=== PATIENT | male | born 1930 | race Caucasian/White ===

== ENCOUNTER 2016-05-27 09:55 | Inpatient (IN) | payer OTHER ==
[~2016-05-27] VITALS: Ht 167.6 cm; Wt 84.3 kg
[~2016-05-27 09:55] MED LIST: ALBU1AER9 INH; AMLO2.5T PO; ASPI81TA28 PO; ATOR-22 PO; ATRINS NEB; BENZ100C7 PO; FERR325T51 PO; FLM4 PO; IPRASOL4 INH; LEVA1.255 INH; LEVO125T4 PO; LPR25 PO; OMEG10007 PO; OMEP20CA9 PO; PSYL55.43 PO; SENN-61 PO; SYMIN160 INH; UMEC1INH PO; WARF5TAB7 PO; XLTOPS OPB
[2016-05-27] MEDS ORDERED: FAMOTIDINE 20MG/102 ML D5W IV STA (10:40)
[2016-05-27 10:53] LABS: BASO % 0.1 %; BASO ABS # 0.01 K/uL (0-0.2); COMPLETE YES; EOS % 0.8 %; LYMPH % 7.6 %; LYMPH ABS # 0.84 K/uL (1.2-3.4); MEAN CELL VOLUME 88.2 fL (80-100); MEAN PLATELET VOLUME 9.7 fL (7.4-10.4); MONO % 8.8 %; NEUT % 81.7 %; PLATELET COUNT 170 K/uL (130-400); RED BLOOD COUNT 4.76 M/uL (4.7-6.1); WHITE BLOOD COUNT 11.12 K/uL (4.8-10.8)
[2016-05-27] MEDS ORDERED: AMOX875T PO (10:54)
[2016-05-27] MEDS ORDERED: PSYL48.59 PO (10:54)
[2016-05-27] MEDS ORDERED: FERR1TAB13 PO (10:54)
[2016-05-27] MEDS ORDERED: ALBU18002 NAE (10:54)
[2016-05-27 10:59] LABS: BUN/CREATININE RATIO 13.7 (10-20); CALCIUM 8.9 mg/dl (8.5-10.1); CREATININE 1.4 mg/dl (0.60-1.40); POTASSIUM 4.4 mmol/L (3.5-5.1)
--- NOTE | 2016-05-27 11:00 | DIAGNOSTIC IMAGING REPORT ---
CHEST ONE VIEW PORTABLE CLINICAL HISTORY: Atypical chest pain COMPARISON STUDY: 02/03/2016 FINDINGS: There are postsurgical changes of a midline sternotomy. There is stable left basilar atelectasis/scarring. There is no failure. There is no acute parenchymal consolidation. No pleural effusions are visualized.[ IMPRESSION: No active disease in the chest. Electronically signed by: Catarino Garcia M.D. 05/27/2016 10:59 AM Dictated Date/Time: 05/27/2016 10:58 AM
[2016-05-27 11:03] LABS: INR 2.1 (0.9-1.1); PARTIAL THROMBOPLASTIN RATIO 1.4; PROTHROMBIN TIME (PATIENT) 23.3 SECONDS (9.0-12.0)
[2016-05-27] MEDS ORDERED: ASPIRIN 324 MG CHEW PO STA (11:12)
--- NOTE | 2016-05-27 11:14 | EMERGENCY ROOM VISIT NOTE ---
History Report prepared by Philip: Manolo Day Under the Supervision of: Dr. Raz Delaney M.D. First contact with patient: 10:32 Chief Complaint: SHORTNESS OF BREATH Stated Complaint: CAN'T BREATHE, CHEST PAIN DX: COPD Nursing Triage Summary: Pt reports difficulty breathing and chest pain that started yesterday. Pain is non radiating. Pt reports finished course of prednisone and still taking Augmentin "for my lungs." Hx of COPD. History of Present Illness The patient is a 86 year old male who presents to the Emergency Room with complaints of intermittent, resolved mid-chest pain starting last night. He describes it to be a burning pain which was similar to acid reflux. The pain occurred once last night and once this morning. The pain lasted all of last night. He denies any symptom relief with TUMS. It resolved after a few minutes this morning. He currently denies any pain. He also complains of persistent shortness of breath. He denies diaphoresis, nausea, vomiting, or any other complaints. He has a history of valve replacement and A Fib. He denies any recent stress tests. he is on Coumadin. Source of History: patient Onset: last night Position: chest (mid) Quality: burning Timing: intermittent, resolved Modifying Factors (Relieving): other (TUMS without relief) Associated Symptoms: + SOB, No diaphoresis, No nausea, No vomiting Review of Systems See HPI for pertinent positives & negatives. A total of 10 systems reviewed and were otherwise negative. Past Medical & Surgical Medical Problems: (1) Asthma (2) Cerebrovascular disease (3) Chest pain (4) CKD (chronic kidney disease) stage 3, GFR 30-59 ml/min (5) COPD (chronic obstructive pulmonary disease) (6) Dyslipidemia (7) GERD (gastroesophageal reflux disease) (8) History of tobacco use (9) HTN (hypertension) (10) Hyponatremia (11) Hypothyroid (12) Paroxysmal a-fib (13) Sensorineural hearing loss (14) TIA (transient ischemic attack) Surgical Problems: (1) H/O exploratory laparotomy (2) Heart valve replaced (3) History of CEA (carotid endarterectomy) Family History Cancer Diabetes mellitus Heart disease Hypertension Lung disease Stroke Social History Smoking Status: Former Smoker Alcohol Use: occasionally Marital Status: single Housing Status: lives with family Occupation Status: unemployed Current/Historical Medications Scheduled Amlodipine (Norvasc), 0.5 TAB PO DAILY Amoxicillin & Pot Clavulanate (Augmentin 875-125 mg), 1 TAB PO UD Aspirin (Aspirin Ec), 81 MG PO DAILY Atorvastatin (Lipitor), 1 TAB PO DAILY Budesonide/Formoterol Fumarate (Symbicort 160/4.5 Inhaler ), 2 PUFFS INH BID Ferrous Sulfate (Kp Ferrous Sulfate), 1 TAB PO DAILY Fish Oil ([place]-3), 1,000 MG PO DAILY Latanoprost (Latanoprost), 1 DROP OPB HS Levothyroxine Sodium (Levothyroxine Sodium), 125 MCG PO DAILY Metoprolol Tartrate (Lopressor), 12.5 MG PO BID Omeprazole (Prilosec), 20 MG PO DAILY Tamsulosin HCl (Tamsulosin HCl), 0.4 MG PO DAILY Umeclidinium [place] (Incruse Ellipta), 1 PUFF PO DAILY Warfarin Sod (Coumadin), 1 TAB PO UD Warfarin Sodium (Coumadin), 1 TAB PO UD Scheduled PRN Albuterol Sulfate (Proair Respiclick), 2 SPRAYS LISSY Q4 PRN for SOB/Wheezing Benzonatate (Benzonatate), 100 MG PO TID PRN for Cough Levalbuterol Hcl (Levalbuterol), 1 DOSE INH Q2H PRN for SOB/Wheezing Psyllium (Metamucil), 1 DOSE PO DAILY PRN for Constipation Allergies Coded Allergies: Shellfish (Verified Allergy, Severe, ANAPHYLAXIS, 05/27/16) Lisinopril (Unverified Allergy, Unknown, DROPS BLOOD PRESSURE TO LOW, , 01/31) PT FAMILY WOULD LIKE LISINOPRIL ADDED INTO ALLERGY TO AVOID REACTION Shrimp (Unverified Allergy, Unknown, ANAPHYLAXIS, 05/27/16) Physical Exam Vital Signs Date Time Temp Pulse Resp B/P Pulse Ox O2 Delivery O2 Flow Rate FiO2 05/27/16 12:04 Room Air 05/27/16 11:32 78 05/27/16 10:54 88 18 109/58 97 Nasal Cannula 2.0 05/27/16 10:37 96 Nasal Cannula 2.0 05/27/16 10:23 92 Room Air 05/27/16 10:05 37.1 96 22 100/44 95 Room Air 05/27/16 10:05 95 Room Air Physical Exam CONSTITUTIONAL: No acute distress HEENT: No icterus, moist mucous membranes NECK: No meningismus, trachea is midline. CARDIOVASCULAR: Regular rate, normal perfusion RESPIRATORY: Unlabored breathing. Clear to auscultation. GASTROINTESTINAL: Non-tender GENITOURINARY: No flank tenderness MUSCULOSKELETAL: Full range of motion NEUROLOGIC: No acute gross focal deficits. PSYCHIATRIC: Normal affect SKIN: Normal for ethnicity. Medical Decision & Procedures ER Provider Diagnostic Interpretation: X-ray results as stated below per interpretation by me and the radiologist. CHEST ONE VIEW PORTABLE CLINICAL HISTORY: Atypical chest pain COMPARISON STUDY: 02/03/2016 FINDINGS: There are postsurgical changes of a midline sternotomy. There is stable left basilar atelectasis/scarring. There is no failure. There is no acute parenchymal consolidation. No pleural effusions are visualized.[ IMPRESSION: No active disease in the chest. Electronically signed by: Catarino Garcia M.D. 05/27/2016 10:59 AM Dictated Date/Time: 05/27/2016 10:58 AM Laboratory Results 05/27/16 10:35 Red Blood Count 4.76, Mean Corpuscular Volume 88.2, Mean Corpuscular Hemoglobin 30.0, Mean Corpuscular Hemoglobin Concent 34.0, Mean Platelet Volume 9.7, Neutrophils (%) (Auto) 81.7, Lymphocytes (%) (Auto) 7.6, Monocytes (%) (Auto) 8.8, Eosinophils (%) (Auto) 0.8, Basophils (%) (Auto) 0.1, Neutrophils # (Auto) 9.09, Lymphocytes # (Auto) 0.84, Monocytes # (Auto) 0.98, Eosinophils # (Auto) 0.09, Basophils # (Auto) 0.01 05/27/16 10:35 Test 05/27/16 10:35 White Blood Count 11.12 K/uL (4.8-10.8) Red Blood Count 4.76 M/uL (4.7-6.1) Hemoglobin 14.3 g/dL (14.0-18.0) Hematocrit 42.0 % (42-52) Mean Corpuscular Volume 88.2 fL (80-100) Mean Corpuscular Hemoglobin 30.0 pg (25-34) Mean Corpuscular Hemoglobin Concent 34.0 g/dl (32-36) Platelet Count 170 K/uL (130-400) Mean Platelet Volume 9.7 fL (7.4-10.4) Neutrophils (%) (Auto) 81.7 % Lymphocytes (%) (Auto) 7.6 % Monocytes (%) (Auto) 8.8 % Eosinophils (%) (Auto) 0.8 % Basophils (%) (Auto) 0.1 % Neutrophils # (Auto) 9.09 K/uL (1.4-6.5) Lymphocytes # (Auto) 0.84 K/uL (1.2-3.4) Monocytes # (Auto) 0.98 K/uL (0.11-0.59) Eosinophils # (Auto) 0.09 K/uL (0-0.5) Basophils # (Auto) 0.01 K/uL (0-0.2) RDW Standard Deviation 44.5 fL (36.4-46.3) RDW Coefficient of Variation 13.7 % (11.5-14.5) Immature Granulocyte % (Auto) 1.0 % Immature Granulocyte # (Auto) 0.11 K/uL (0.00-0.02) Prothrombin Time 23.3 SECONDS (9.0-12.0) Prothromb Time International Ratio 2.1 (0.9-1.1) Activated Partial Thromboplast Time 35.9 SECONDS (21.0-31.0) Partial Thromboplastin Ratio 1.4 Anion Gap 9.0 mmol/L (3-11) Est Creatinine Clear Calc Drug Dose 40.5 ml/min Estimated GFR () 53.1 Estimated GFR (Non- 45.8 BUN/Creatinine Ratio 13.7 (10-20) Calcium Level 8.9 mg/dl (8.5-10.1) Labs reviewed by ED physician. Medications Administered Medications (Trade) Dose Ordered Sig/Leopoldo Route Start Time Stop Time Status Last Admin Dose Admin Famotidine (Pepcid 20mg/100 ml) 20 mg ONE STAT IV 05/27/16 10:40 05/27/16 10:42 DC 05/27/16 10:54 20 MG Aspirin (Aspirin Chew) 324 mg NOW STAT PO 05/27/16 11:12 05/27/16 11:14 DC 05/27/16 11:28 324 MG ECG Indication: chest pain Rate (beats per minute): 90 Rhythm: sinus rhythm Findings: no acute ischemic change, no ectopy, other (Prominent T waves anterolateral leads) ED Course 1032: Past medical records reviewed. The patient was evaluated in room B10. A complete history and physical examination was performed. 1040: Famotidine 20 mg IV 1112: Aspirin 324 mg PO, Heparin Sodium/Dextrose 1 ea N/A 1127: I discussed the patient's case with ZAN Boyd with [facility]. Upon reexamination the patient is resting comfortably. I discussed results and treatment plan with the patient. She verbalizes agreement and understanding. The patient will be evaluated for further management. 1157: I discussed the patient's case with Dr. Wood, web development intern with [facility]. Medical Decision Differential diagnosis includes but is not limited to heart disease and GERD. 86-year-old presented to the emergency room for evaluation of chest pain greater than 12 hours in duration which began last night before bed. He has no chest pain on my examination at this time. Troponin noted to be elevated. Aspirin ordered. Cardiology consulted. He remained hemodynamically stable throughout ED course. Consults Time Called: 1124 Consulting Physician: ZAN Boyd with [facility] Returned Call: [phone] I discussed the patient's case with ZAN Boyd with [facility]. Additional Consults: Time Called: 1130 Consulted Physician: Dr. Wood, web development intern with [facility] Returned Call: [phone] Additional Comments: I discussed the patient's case with Dr. Wood, web development intern with [facility]. Impression Primary Impression: Precordial chest pain Additional Impression: Elevated troponin Scribe Attestation The scribe's documentation has been prepared under my direction and personally reviewed by me in its entirety. I confirm that the note above accurately reflects all work, treatment, procedures, and medical decision making performed by me. Departure Information Dispostion Being Evaluated By Hospitalist Referrals No Doctor, Assigned (PCP) Patient Instructions My [facility] Problem Qualifiers
[2016-05-27 12:04] VITALS: Ht 167.6 cm; Wt 84.3 kg
[2016-05-27] MEDS ORDERED: ACETAMINOPHEN 325 MG TAB PO PRN (12:15)
[2016-05-27] MEDS ORDERED: ONDANSETRON INJ 2 MG/ML 2 ML VIAL IV PRN (12:15)
[2016-05-27] MEDS ORDERED: NITROGLYCERIN 0.4 MG SL PER TAB CHARGE SL PRN (12:15)
[2016-05-27] MEDS ORDERED: WARF5TAB90 PO (12:27)
[2016-05-27] MEDS ORDERED: CMD/25 PO (12:27)
[2016-05-27] MEDS ORDERED: LEVALBUTEROL 1.25MG/0.5ML NEB INH PRN (12:30)
[2016-05-27 13:29] LABS: THYROID STIMULATING HORMONE 1.48 uIu/ml (0.300-4.500)
--- NOTE | 2016-05-27 13:45 | History and Physical ---
History & Physical Date & Time of Service: May 27, 2016 at 12:41 Chief Complaint: Can't Breathe, Chest Pain Dx: Copd Primary Care Physician: Taj Rios M.D. History of Present Illness Source: patient, family (son with whom he lives) 86 yoM with h/p PAF on anticoagulation, COPD with recent flare 2/2 sinusitis, GERD and s/p bioprosthetic valve replacement in 2013 presents to the ER with new onset chest pain. The pain began yesterday after a lunch of lasagna, and was described as centrally located (points to lower sternum/epigastric region) without radiation, felt like a burning consistent pain that went away right before dinner and again returned after a dinner of the same lasagna. He went to bed with it, woke up a couple of times and felt the same pain, and awoke this morning with it. He denies any associated symptoms of diaphoresis, shortness of breath, lightheadedness that occurred yesterday. However, this morning he began to feel poorly with a worsening of the chest pain, shortness of breath, palpitations and heart racing. He took his BP which was in the 70s systolic with a pulse in the 120-130s. This was repeated shortly afterward and was similar. This brought him to the ER (by POV) where initial vitals were 109/ 58 P 96 RR 22 37.1 and 95% on RA. He was placed on oxygen for comfort (no documented hypoxia) and was given ASA 324mg and Pepcid. EKG revealed afib with a rate of 90bpm and no ST changes, Q waves or TWI to indicate active ischemia. A troponin was 0.54, CXR was negative and exam was documented below. In the past two weeks he has been fighting an URI, initially seen by IM on 05/10 and describing a chest heaviness with SOB. At that time he was started on Lasix and Prednisone for 3 days. On followup on 05/19, however, he c/o worsened nasal congestion and productive cough at which time he was given more steroids and a 10-day course of Augmentin which is almost complete. Past Medical/Surgical History Medical Problems: (1) Asthma Status: Chronic (2) Cerebrovascular disease Status: Chronic (3) CKD (chronic kidney disease) stage 3, GFR 30-59 ml/min Status: Chronic (4) COPD (chronic obstructive pulmonary disease) Status: Chronic (5) Dyslipidemia Status: Chronic (6) GERD (gastroesophageal reflux disease) Status: Chronic (7) History of tobacco use Permanent Comment: quit in 1982 Status: Chronic (8) HTN (hypertension) Status: Chronic (9) Hypothyroid Status: Chronic (10) Paroxysmal a-fib Permanent Comment: postoperative Status: Chronic (11) Sensorineural hearing loss Status: Chronic (12) TIA (transient ischemic attack) Status: Resolved Surgical Problems: (1) Heart valve replaced Permanent Comment: aortic valve replacement 2013 Status: Chronic Family History Cancer Diabetes mellitus Heart disease Hypertension Lung disease Stroke Social History Smoking Status: Former Smoker Smokeless Tobacco Use: Unknown Alcohol Use: none Drug Use: none Marital Status: single Housing status: lives with family (soon and daughter in law) Occupational Status: unemployed Immunizations History of Influenza Vaccine: Yes Influenza Vaccine Date: Feb 12, 2016 History of Tetanus Vaccine?: Yes Tetanus Immunization Date: Mar 08, 1997 History of Pneumococcal: Yes Pneumococcal Date: Oct 26, 2015 History of Hepatitis B Vaccine: No Multi-Drug Resistant Organisms History of MDRO: No Allergies Coded Allergies: Shellfish (Verified Allergy, Severe, ANAPHYLAXIS, 05/27/16) Lisinopril (Unverified Allergy, Unknown, DROPS BLOOD PRESSURE TO LOW, , 01/31) PT FAMILY WOULD LIKE LISINOPRIL ADDED INTO ALLERGY TO AVOID REACTION Shrimp (Unverified Allergy, Unknown, ANAPHYLAXIS, 05/27/16) Home Medications Scheduled Amlodipine (Norvasc), 0.5 TAB PO DAILY Amoxicillin & Pot Clavulanate (Augmentin 875-125 mg), 1 TAB PO UD Aspirin (Aspirin Ec), 81 MG PO DAILY Atorvastatin (Lipitor), 1 TAB PO DAILY Budesonide/Formoterol Fumarate (Symbicort 160/4.5 Inhaler ), 2 PUFFS INH BID Ferrous Sulfate (Kp Ferrous Sulfate), 1 TAB PO DAILY Fish Oil ([place]-3), 1,000 MG PO DAILY Latanoprost (Latanoprost), 1 DROP OPB HS Levothyroxine Sodium (Levothyroxine Sodium), 125 MCG PO DAILY Metoprolol Tartrate (Lopressor), 12.5 MG PO BID Omeprazole (Prilosec), 20 MG PO DAILY Tamsulosin HCl (Tamsulosin HCl), 0.4 MG PO DAILY Umeclidinium [place] (Incruse Ellipta), 1 PUFF PO DAILY Warfarin Sod (Coumadin), 1 TAB PO UD Warfarin Sodium (Coumadin), 1 TAB PO UD Scheduled PRN Albuterol Sulfate (Proair Respiclick), 2 SPRAYS LISSY Q4 PRN for SOB/Wheezing Benzonatate (Benzonatate), 100 MG PO TID PRN for Cough Levalbuterol Hcl (Levalbuterol), 1 DOSE INH Q2H PRN for SOB/Wheezing Psyllium (Metamucil), 1 DOSE PO DAILY PRN for Constipation Physical Exam Vital Signs Date Time Temp Pulse Resp B/P Pulse Ox O2 Delivery O2 Flow Rate FiO2 05/27/16 12:04 Room Air 05/27/16 11:32 78 05/27/16 10:54 88 18 109/58 97 Nasal Cannula 2.0 05/27/16 10:37 96 Nasal Cannula 2.0 05/27/16 10:23 92 Room Air 05/27/16 10:05 37.1 96 22 100/44 95 Room Air 05/27/16 10:05 95 Room Air GEN: WNWD, in no acute distress, alert and appropriate, oxygen in place, no tachypnea or conversational dyspnea HEENT: NC/AT, PERRL, normal sclerae, pharynx non-acute,TM pearly-no effusion, sinuses not TTP CARDIO: reg rate, sinus rhythm on exam, S1/2 heard without m/g/r LUNGS: CTA bilaterally, no crackles, rales or wheezes, good diaphragmatic excursion ABD: soft, non-tender, non-distended, no rebound or guarding, ventral hernia EXTREMITY: pulses are regular, RP and DP palpable 2+ bilat, no LE swelling or edema, extremities are warm and well-perfused NEURO: CN 2-12 grossly intact, sensation intact throughout MUSC: anterior chest wall non-tender to palpation, no gross focal deficits, able to sit up with ease, moves all extremities equally SKIN: warm and dry Diagnostics Laboratory Results Results Past 24 Hours Test 05/27/16 10:35 05/27/16 12:35 05/27/16 12:40 Range/Units White Blood Count 11.12 4.8-10.8 K/uL Red Blood Count 4.76 4.7-6.1 M/uL Hemoglobin 14.3 14.0-18.0 g/dL Hematocrit 42.0 42-52 % Mean Corpuscular Volume 88.2 80-100 fL Mean Corpuscular Hemoglobin 30.0 25-34 pg Mean Corpuscular Hemoglobin Concent 34.0 32-36 g/dl Platelet Count 170 130-400 K/uL Mean Platelet Volume 9.7 7.4-10.4 fL Neutrophils (%) (Auto) 81.7 % Lymphocytes (%) (Auto) 7.6 % Monocytes (%) (Auto) 8.8 % Eosinophils (%) (Auto) 0.8 % Basophils (%) (Auto) 0.1 % Neutrophils # (Auto) 9.09 1.4-6.5 K/uL Lymphocytes # (Auto) 0.84 1.2-3.4 K/uL Monocytes # (Auto) 0.98 0.11-0.59 K/uL Eosinophils # (Auto) 0.09 0-0.5 K/uL Basophils # (Auto) 0.01 0-0.2 K/uL RDW Standard Deviation 44.5 36.4-46.3 fL RDW Coefficient of Variation 13.7 11.5-14.5 % Immature Granulocyte % (Auto) 1.0 % Immature Granulocyte # (Auto) 0.11 0.00-0.02 K/uL Prothrombin Time 23.3 9.0-12.0 SECONDS Prothromb Time International Ratio 2.1 0.9-1.1 Activated Partial Thromboplast Time 35.9 21.0-31.0 SECONDS Partial Thromboplastin Ratio 1.4 Sodium Level 136 136-145 mmol/L Potassium Level 4.4 3.5-5.1 mmol/L Chloride Level 101 98-107 mmol/L Carbon Dioxide Level 26 21-32 mmol/L Anion Gap 9.0 3-11 mmol/L Blood Urea Nitrogen 19 7-18 mg/dl Creatinine 1.40 0.60-1.40 mg/dl Est Creatinine Clear Calc Drug Dose 40.5 ml/min Estimated GFR () 53.1 Estimated GFR (Non- 45.8 BUN/Creatinine Ratio 13.7 10-20 Random Glucose 129 70-99 mg/dl Calcium Level 8.9 8.5-10.1 mg/dl Troponin I 0.542 0-0.045 ng/ml Diagnostic Radiology CXR PORTABLE: IMPRESSION: No active disease in the chest. EKG afib 90, no ST changes Impression Assessment and Plan 86 yo M with valvular heart disease and known PAF on anticoagulation who presents with acute chest pain, shortness of breath and palpitations that have resolved. 1. Chest pain episode this morning is consistent with symptomatic afib with RVR with spontaneous resolution/possible conversion to sinus rhythm (SR on exam) . Symptoms have subsided and trop is mildly elevated which may have been from tachycardia/strain. This makes sense with recent URI/COPD exacerbation and steroid use. Other chest pain yesterday sounds unrelated and with description and relationship to food sounds more consistent with acid reflux. This patient does have risk factors for CAD, however, including age, HLP, known cerebrovascular and peripheral vascular disease and will be admitted for observation and ruled out for ACS. Other causes of chest pain were considered to include but not limited to PE, dissection and PTX, however, these were considered less likely based on the clinical picture. Will obtain flu PCR, check TSH, repeat resting TTE and consult Cardiology for evaluation. Cont coumadin for stroke prophylaxis and metoprolol for rate control. NOTE: PT IS DNR BUT OK WITH EMERGENT CARDIOVERSION IF NEEDED. 2. PAF-cont telemetry, coumadin, Metoprolol with plan per #1 3. HTN-controlled, cont home meds 4. CKD III-at baseline, avoid nephrotoxic substances, renally dose meds 5. URI-resolved, stopping abx and steroids at this time, Flu PCR ordered 6. s/p bioprosthetic valve 7. h/o COPD-stable, no wheezing on exam. Recently finished course of prednisone as outpatient 8. GERD-cont PPI daily and Pepcid/Zantac/TUMS for breakthrough DVT proph-coumadin, therapeutic Code Status: DNR BUT OK WITH EMERGENT CARDIOVERSION Dispo-admitted to tele on obs status Ashlee Montenegro DO [facility] Hospitalist. Advanced Directives Existing Living Will: Yes Existing Power of Fish Smoker: Yes Resuscitation Status DO NOT RESUSCITATE (kerline) VTE Prophylaxis VTE Risk Assessment Done? Y/N: Yes Risk Level: Moderate Given or contraindicated: Warfarin (Coumadin)
[2016-05-27 14:29] VITALS: BP 110/70; PULSE 95; TEMP 36.6; O2SAT 95
[2016-05-27 15:46] VITALS: BP 132/73; PULSE 84; TEMP 36.7; O2SAT 92
[2016-05-27] MEDS ORDERED: WARFARIN SOD 2.5 MG TAB PO SCH (16:00)
[2016-05-27] MEDS: INCRUSE ELLIPTA~ORDER AWAITING ACTION SCH ×3 (16:00→23:08)
[2016-05-27 19:44] VITALS: BP 115/71; PULSE 89; TEMP 36.9; O2SAT 98
[2016-05-27] MEDS: METOPROLOL TARTRATE 25 MG TAB PO SCH (20:11)
[2016-05-27] MEDS: BUDESONIDE/FORMOTEROL FUMARATE 160/4.5 60 PUFFS/INHALER INH SCH (20:11)
[2016-05-27] MEDS: LATANOPROST 0.005% OP SOLN 2.5 ML BTL OPB SCH (20:11)
[2016-05-27 21:08] LABS: INFLUENZA A PCR Neg for Influ A (NEG); INFLUENZA B PCR Neg for Influ B (NEG)
[2016-05-27 23:44] VITALS: BP 118/64; PULSE 76; TEMP 37; O2SAT 97
[2016-05-28] VITALS (7 sets, daily range): BP systolic 96–133; BP diastolic 58–75; PULSE 74–90; TEMP 36.5–37; O2SAT 94–98
[2016-05-28] MEDS: LEVOTHYROXINE 125 MCG TAB PO SCH (06:03)
[2016-05-28 06:18] LABS: HEMATOCRIT 39.9 % (42-52); MEAN CELL VOLUME 88.9 fL (80-100); MEAN CORPUSCULAR HEMOGLOBIN 30.3 pg (25-34); MEAN CORPUSCULAR HGB CONC 34.1 g/dl (32-36); PLATELET COUNT 162 K/uL (130-400); RED BLOOD COUNT 4.49 M/uL (4.7-6.1); WHITE BLOOD COUNT 9.02 K/uL (4.8-10.8)
[2016-05-28 06:23] LABS: INR 1.9 (0.9-1.1); PROTHROMBIN TIME (PATIENT) 21.1 SECONDS (9.0-12.0)
[2016-05-28 06:46] LABS: CALCIUM 8.8 mg/dl (8.5-10.1); CREATININE 1.2 mg/dl (0.60-1.40); POTASSIUM 3.9 mmol/L (3.5-5.1)
[2016-05-28] MEDS: INCRUSE ELLIPTA~ORDER AWAITING ACTION SCH ×3 (07:48→22:52)
[2016-05-28] MEDS: PANTOprazole SOD 40 MG TAB PO SCH (08:21)
[2016-05-28] MEDS: OMEGA-3 (PURIFIED FISH OIL) 1 GM CAP PO SCH (08:22)
[2016-05-28] MEDS: AMLODIPINE BESYLATE 5 MG TAB PO SCH (08:22)
[2016-05-28] MEDS: ASPIRIN 81 MG ECTAB PO SCH (08:22)
[2016-05-28] MEDS: ATORVASTATIN 20 MG TAB PO SCH (08:22)
[2016-05-28] MEDS: METOPROLOL TARTRATE 25 MG TAB PO SCH ×2 (08:23→20:39)
[2016-05-28] MEDS: TAMSULOSIN HCL 0.4 MG CAP PO SCH (08:23)
[2016-05-28] MEDS: BUDESONIDE/FORMOTEROL FUMARATE 160/4.5 60 PUFFS/INHALER INH SCH ×2 (08:24→20:37)
[2016-05-28] MEDS: FERROUS SULFATE 325 MG TAB PO SCH (08:24)
[2016-05-28] MEDS ORDERED: FERROUS SULFATE 325 MG TAB PO SCH (09:00)
--- NOTE | 2016-05-28 10:54 | CARDIOLOGY CONSULTATION ---
DATE OF CONSULTATION: 05/28/2016 REFERRING PHYSICIAN: Bob Dubon. REASON FOR CONSULTATION: Chest pain. HISTORY: This is an 86-year-old male patient who is followed through our clinic with Dr. Sheehan. He has a history of aortic valve replacement in 2013 at the [facility] in [place]. According to records and the patient, he had no bypasses performed, just the aortic valve replacement with a bioprosthesis. Approximately a week ago, he was having some difficulty with flu-like symptoms. He was started on antibiotics and steroids. The night before admission, he had a lasagna at dinner. He did not feel well and had epigastric discomfort all night until the next morning. When it did resolve, he decided to come to the Emergency Department where he has been admitted. He has a history of paroxysmal atrial fibrillation. There is mention in the H\T\P that the patient had atrial fibrillation with RVR but I can find no record of this. The patient states that he took his pulse at home at the peak of his chest and epigastric discomfort and it was elevated. The EKGs on admission show atrial fibrillation with a controlled heart rate. He has had no RVR since admission. His troponins on admission and during his hospital stay have been borderline elevated. The initial one was 0.54 and today it is 0.305. The EKG shows no acute changes. His chest pain resolved after his hospital admission. ALLERGIES: LISINOPRIL, SHELLFISH AND SHRIMP. PAST MEDICAL HISTORY: As outlined above, the patient is status post AVR with a bioprosthesis. He has a history of paroxysmal atrial fibrillation and previous TIA. He has chronic kidney disease and a history of COPD. He also has a history of GERD. SOCIAL HISTORY: He stopped smoking in 1982. He is single and lives with his family. FAMILY MEDICAL HISTORY: Noncontributory. REVIEW OF SYSTEMS: A 10-point review of systems is negative except for the history of chief complaint. PHYSICAL EXAMINATION: GENERAL: He is alert and oriented, in no acute distress. VITAL SIGNS: Blood pressure is 130/70, pulse is regular at 90 beats per minute, he is afebrile. HEENT: He is normocephalic. Pupils are equal and reactive to light. Extraocular muscles are intact bilaterally. NECK: The neck veins are flat. Carotids have good upstrokes bilaterally without bruits. Thyroid is nonpalpable. RESPIRATORY: Breath sounds equal bilaterally and clear to auscultation. CARDIOVASCULAR: Heart has a regular rhythm. Normal S1, S2. No S3, S4. No cardiac rubs or murmurs. GASTROINTESTINAL: Abdomen is soft, nontender, without organomegaly. EXTREMITIES: Free of edema, digit clubbing, or cyanosis. NEUROLOGIC: Grossly intact. SKIN: Warm to touch. LYMPH NODES: Negative to palpation. LABORATORY DATA: Per the history of chief complaint. IMPRESSION: 1. Epigastric retrosternal chest discomfort, most likely related to recent medications including steroids and a meal of lasagna. I do not believe that this is due to acute coronary syndrome. 2. Borderline elevation in cardiac troponins which may be related to demand ischemia from atrial fibrillation. 3. Status post aortic valve replacement. 4. History of paroxysmal atrial fibrillation. 5. Chronic obstructive pulmonary disease. RECOMMENDATIONS: I will order an echocardiogram today to evaluate his prosthetic valve and for wall motion abnormalities after the above events. I do not believe, however, that this is due to acute coronary syndrome. I have asked that the patient ambulate today in the perales. I will review the echo when it is completed and I will have recommendations in the morning. It is likely that we will discharge him to outpatient followup and stress test. Thank you.
[2016-05-28 12:11] LABS: URINE APPEARANCE CLEAR (CLEAR); URINE BILIRUBIN NEG (NEG); URINE COLOR YELLOW; URINE NITRITE NEG (NEG); URINE SPECIFIC GRAVITY 1.014 (1.000-1.030); UROBILINOGEN NEG (NEG)
[2016-05-28 12:22] LABS: MANUAL MICROSCOPIC REQUIRED? NO; REVIEW REQ? NO
--- NOTE | 2016-05-28 13:20 | ECHOCARDIOGRAM REPORT ---
*NOTICE TO RECEIVING DEMOCRAT AGENCY This information is strictly Confidential and protected under [place] law. [place] law prohibits you from making any further disclosure of this information unless further disclosure is expressly permitted by the written consent of the person to whom it pertains or is authorized by law. A general authorization for the release of medical or other information is not sufficient for this purpose. Hospital accepts no responsibility if the information is made available to any other person, INCLUDING THE PATIENT. Interpretation Summary * Name: BAM GONZALEZ Study Date: 05/28/2016 11:27 AM BP: 144/83 mmHg * Patient Location: C.2T\S\S239\S\1 HR: 86 * : 1930 (M/d/yyyy) Gender: Male Height: 66 in * Age: 86 yrs Ethnicity: [place] Weight: 190 lb * Ordering Physician: Pia Fong * Referring Physician: Self, Referred * Performed By: Catarino Duarte RDCS * * Reason For Study: A-fib * BSA: 2.0 m2 * -- Conclusions -- * There is mild concentric left ventricular hypertrophy. * Ejection Fraction = 60-65%. * The right ventricular systolic function is normal. * The left atrium is severely dilated. * The right atrium is severely dilated. * There is a bioprosthetic aortic valve. * The prosthetic aortic valve appears to open well. * There is mild mitral regurgitation. Procedure Details * A complete two-dimensional transthoracic echocardiogram was performed (2D, M-mode, Doppler and color flow Doppler). * The study was technically adequate. Left Ventricle * The left ventricle is normal in size. * There is mild concentric left ventricular hypertrophy. * Ejection Fraction = 60-65%. * The left ventricular wall motion is normal. Right Ventricle * The right ventricle is grossly normal size. * The right ventricular systolic function is normal. Atria * The left atrium is severely dilated. * The right atrium is severely dilated. * The interatrial septum is intact with no evidence for an atrial septal defect. Mitral Valve * There is mild to moderate mitral annular calcification. * There is mild mitral regurgitation. Tricuspid Valve * The tricuspid valve is not well visualized, but is grossly normal. * There is trace tricuspid regurgitation. 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 * The prosthetic aortic valve appears to open well. * The gradient is normal for this prosthetic aortic valve. Pulmonic Valve * The pulmonic valve is not well visualized. Great Vessels * The aortic root and proximal ascending aorta are normal sized. Pericardium/Pleural * There is no pericardial effusion. MMode 2D Measurements and Calculations IVSd 1.5 cm IVSs 1.9 cm LVIDd 4.6 cm LVIDs 3.3 cm LVPWd 1.5 cm LVPWs 1.9 cm IVS/LVPW 1.0 FS 28.9 % EDV(Teich) 98.9 ml ESV(Teich) 43.9 ml EF(Teich) 55.6 % EDV(cubed) 99.4 ml ESV(cubed) 35.7 ml EF(cubed) 64.0 % % IVS thick 25.3 % % LVPW thick 31.5 % LV mass(C)d 281.7 grams LV mass(C)dI 143.9 grams/m\S\2 LV mass(C)s 267.6 grams LV mass(C)sI 136.8 grams/m\S\2 SV(Teich) 55.0 ml SI(Teich) 28.1 ml/m\S\2 SV(cubed) 63.6 ml SI(cubed) 32.5 ml/m\S\2 Ao root diam 2.7 cm Ao root area 5.7 cm\S\2 ACS 1.6 cm LA dimension 5.1 cm asc Aorta Diam 3.5 cm LA/Ao 1.9 LVAd ap4 19.4 cm\S\2 LVLd ap4 7.3 cm EDV(MOD-sp4) 42.0 ml LVAs ap4 11.4 cm\S\2 LVLs ap4 6.7 cm ESV(MOD-sp4) 17.0 ml EF(MOD-sp4) 59.5 % LVAd ap2 22.2 cm\S\2 LVLd ap2 7.4 cm EDV(MOD-sp2) 56.0 ml LVAs ap2 13.0 cm\S\2 LVLs ap2 7.0 cm ESV(MOD-sp2) 21.0 ml EF(MOD-sp2) 62.5 % SV(MOD-sp4) 25.0 ml SI(MOD-sp4) 12.8 ml/m\S\2 SV(MOD-sp2) 35.0 ml SI(MOD-sp2) 17.9 ml/m\S\2 Doppler Measurements and Calculations MV E max gela 125.2 cm/sec MV A max gela 37.6 cm/sec MV E/A 3.3 MV V2 max 175.4 cm/sec MV max PG 12.3 mmHg MV V2 mean 100.5 cm/sec MV mean PG 4.9 mmHg MV V2 VTI 35.4 cm MV dec time 0.21 sec Ao V2 max 203.6 cm/sec Ao max PG 16.6 mmHg Ao max PG (full) 12.8 mmHg Ao V2 mean 145.3 cm/sec Ao mean PG 9.5 mmHg Ao mean PG (full) 7.2 mmHg Ao V2 VTI 39.9 cm LV V1 max PG 3.8 mmHg LV V1 mean PG 2.2 mmHg LV V1 max 97.4 cm/sec LV V1 mean 70.5 cm/sec LV V1 VTI 20.1 cm SV(Ao) 227.6 ml SI(Ao) 116.3 ml/m\S\2 PA V2 max 117.3 cm/sec PA max PG 5.5 mmHg PI end-d gela 110.3 cm/sec TR max gela 287.6 cm/sec
--- NOTE | 2016-05-28 15:51 | Progress Note ---
Internal Med Progress Note Date of Service: May 28, 2016. Provider Documentation: SUBJECTIVE: Patient is doing well. Denies any chest pain, nausea, vomiting, sweating, diaphoresis, palpitations Tele- A fib with rate controlled OBJECTIVE: Vital Signs-as noted below Exam: General-AAOX3, no distress Neck-Supple, NO JVD Lungs-AEBE, no wheezing, rhonchi, rales Heart-S1, S2 normal, Murmur + Extremities-No edema Lab data as noted below. ASSESSMENT & PLAN: Assessment and Plan : 86 yo M with valvular heart disease and known PAF on anticoagulation who presents with acute chest pain, shortness of breath and palpitations that have resolved. CHEST PAIN, ATYPICAL : Less likely cardiac -EKG x 2 - no acute changes, Troponin - elevated, Echo- Mild LVH, EF 60-65%, LA /RA - severe dilation, Bioprosthetic aortic valve, Mild MR -Did well ambulating in hallway -Continue with ASA, Atorvastatin, Metoprolol -Cardiology on board. Appreciate inputs. No plans for further cardiac intervention ELEVATED TROPONIN 0.496, 0.387, 0.30 likely secondary to demand ischemia secondary to A fib -Echo- no wall motion abnormalities -Monitor PAROXYSMAL ATRIAL FIBRILLATION- Atrial fibrillation, rate controlled. HR was in 120-130s at home, but has been rate controlled 70-80s here. -Continue with ASA, Coumadin CKD-III At baseline HTN- Controlled -Continue with home medications URTI- Resolved -Antibx/Steroids course completed recently. AORTIC STENOSIS S/P BIOPROSTHETIC VALVE COPD -Recently completed course of prednisone, antibiotics -No signs of exacerbation GERD -PPI daily DVT proph-coumadin Code Status: DNR BUT OK WITH EMERGENT CARDIOVERSION DISPOSITION Observation status Okay to discharge home Vital Signs: Date Time Temp Pulse Resp B/P Pulse Ox O2 Delivery O2 Flow Rate FiO2 05/28/16 15:31 36.7 80 20 96/62 98 Nasal Cannula 2.0 05/28/16 12:05 Room Air 05/28/16 11:44 37.0 85 18 98/58 96 Room Air 05/28/16 08:00 Room Air 05/28/16 07:05 36.5 90 16 133/75 96 Nasal Cannula 2.0 05/28/16 04:00 Nasal Cannula 2.0 05/28/16 04:00 36.9 74 18 124/73 97 Nasal Cannula 2.0 05/28/16 00:00 Nasal Cannula 2.0 05/27/16 23:44 37.0 76 18 118/64 97 Nasal Cannula 2.0 05/27/16 20:00 Nasal Cannula 2.0 05/27/16 19:44 36.9 89 19 115/71 98 Nasal Cannula 2.0 Lab Results: Results Past 24 Hours Test 05/27/16 18:37 05/27/16 22:00 05/28/16 06:02 05/28/16 11:40 Range/Units Influenza Type A (RT-PCR) Neg for Influ A NEG Influenza Type B (RT-PCR) Neg for Influ B NEG Creatine Kinase MB 1.8 0.5-3.6 ng/ml Creatine Kinase MB Ratio 0-3.0 Troponin I 0.305 0-0.045 ng/ml White Blood Count 9.02 4.8-10.8 K/uL Red Blood Count 4.49 4.7-6.1 M/uL Hemoglobin 13.6 14.0-18.0 g/dL Hematocrit 39.9 42-52 % Mean Corpuscular Volume 88.9 80-100 fL Mean Corpuscular Hemoglobin 30.3 25-34 pg Mean Corpuscular Hemoglobin Concent 34.1 32-36 g/dl RDW Standard Deviation 44.5 36.4-46.3 fL RDW Coefficient of Variation 13.6 11.5-14.5 % Platelet Count 162 130-400 K/uL Mean Platelet Volume 10.0 7.4-10.4 fL Prothrombin Time 21.1 9.0-12.0 SECONDS Prothromb Time International Ratio 1.9 0.9-1.1 Sodium Level 139 136-145 mmol/L Potassium Level 3.9 3.5-5.1 mmol/L Chloride Level 101 98-107 mmol/L Carbon Dioxide Level 29 21-32 mmol/L Anion Gap 9.0 3-11 mmol/L Blood Urea Nitrogen 19 7-18 mg/dl Creatinine 1.20 0.60-1.40 mg/dl Est Creatinine Clear Calc Drug Dose 47.1 ml/min Estimated GFR () 64.0 Estimated GFR (Non- 55.2 BUN/Creatinine Ratio 16.0 10-20 Random Glucose 100 70-99 mg/dl Calcium Level 8.8 8.5-10.1 mg/dl Urine Color YELLOW Urine Appearance CLEAR CLEAR Urine pH 7.0 4.5-7.5 Urine Specific [place] 1.014 1.000-1.030 Urine Protein NEG NEG Urine Glucose (UA) NEG NEG Urine Ketones NEG NEG Urine Occult Blood NEG NEG Urine Nitrite NEG NEG Urine Bilirubin NEG NEG Urine Urobilinogen NEG NEG Urine Leukocyte Esterase NEG NEG Microbiology Results 05/28/16 Urine Culture, Received Pending
[2016-05-28] MEDS ORDERED: WARFARIN SOD 5 MG TAB PO SCH (16:00)
[2016-05-28] MEDS: LATANOPROST 0.005% OP SOLN 2.5 ML BTL OPB SCH (20:37)
[2016-05-29 04:00] VITALS: BP 110/63; PULSE 79; TEMP 36.8; O2SAT 95
[2016-05-29] MEDS: LEVOTHYROXINE 125 MCG TAB PO SCH (05:56)
[2016-05-29 07:19] VITALS: BP 127/79; PULSE 83; TEMP 36.8; O2SAT 95
[2016-05-29] MEDS: INCRUSE ELLIPTA~ORDER AWAITING ACTION SCH (07:55)
[2016-05-29] MEDS: FERROUS SULFATE 325 MG TAB PO SCH (07:56)
[2016-05-29] MEDS: METOPROLOL TARTRATE 25 MG TAB PO SCH (07:56)
[2016-05-29] MEDS: ATORVASTATIN 20 MG TAB PO SCH (07:56)
[2016-05-29] MEDS: ASPIRIN 81 MG ECTAB PO SCH (07:56)
[2016-05-29] MEDS: OMEGA-3 (PURIFIED FISH OIL) 1 GM CAP PO SCH (07:57)
[2016-05-29] MEDS: TAMSULOSIN HCL 0.4 MG CAP PO SCH (07:57)
[2016-05-29] MEDS: PANTOprazole SOD 40 MG TAB PO SCH (07:57)
[2016-05-29] MEDS: BUDESONIDE/FORMOTEROL FUMARATE 160/4.5 60 PUFFS/INHALER INH SCH (07:58)
[2016-05-29] MEDS: AMLODIPINE BESYLATE 5 MG TAB PO SCH (07:59)
--- NOTE | 2016-05-29 10:41 | Progress Note ---
Internal Med Progress Note Date of Service: May 29, 2016. Provider Documentation: SUBJECTIVE: Patient is doing well. Denies any chest pain, nausea, vomiting, sweating, diaphoresis, palpitations Tele- A fib with rate controlled OBJECTIVE: Vital Signs-as noted below Exam: General-AAOX3, no distress Neck-Supple, NO JVD Lungs-AEBE, no wheezing, rhonchi, rales Heart-S1, S2 normal, Murmur + Extremities-No edema Lab data as noted below. ASSESSMENT & PLAN: Assessment and Plan : 86 yo M with valvular heart disease and known PAF on anticoagulation who presents with acute chest pain, shortness of breath and palpitations that have resolved. CHEST PAIN, ATYPICAL : Less likely cardiac -EKG x 2 - no acute changes, Troponin - elevated, Echo- Mild LVH, EF 60-65%, LA /RA - severe dilation, Bioprosthetic aortic valve, Mild MR -Did well ambulating in hallway -Continue with ASA, Atorvastatin, Metoprolol -Cardiology on board. Appreciate inputs. No plans for further cardiac intervention, Cleared for discharge toda ELEVATED TROPONIN 0.496, 0.387, 0.30 likely secondary to demand ischemia secondary to A fib -Echo- no wall motion abnormalities -Monitored on telemetry PAROXYSMAL ATRIAL FIBRILLATION- Atrial fibrillation, rate controlled. HR was in 120-130s at home, but has been rate controlled 70-80s here. -Continue with ASA, Coumadin CKD-III At baseline HTN- Controlled -Continue with home medications URTI- Resolved -Antibx/Steroids course completed recently. AORTIC STENOSIS S/P BIOPROSTHETIC VALVE COPD -Recently completed course of prednisone, antibiotics -No signs of exacerbation GERD -PPI daily DVT proph-coumadin Code Status: DNR BUT OK WITH EMERGENT CARDIOVERSION DISPOSITION Observation status Okay to discharge home today Discussed with cardiology- cleared for discharge today Vital Signs: Date Time Temp Pulse Resp B/P Pulse Ox O2 Delivery O2 Flow Rate FiO2 05/29/16 07:19 36.8 83 18 127/79 95 Room Air 05/29/16 04:00 Room Air 05/29/16 04:00 36.8 79 18 110/63 95 Room Air 05/28/16 23:43 36.6 78 19 117/74 94 Room Air 05/28/16 23:30 Room Air 05/28/16 20:20 94 Room Air 05/28/16 19:34 36.8 84 18 115/66 95 Room Air 05/28/16 16:05 Room Air 05/28/16 15:31 36.7 80 20 96/62 98 Nasal Cannula 2.0 05/28/16 12:05 Room Air 05/28/16 11:44 37.0 85 18 98/58 96 Room Air Lab Results: Results Past 24 Hours Test 05/28/16 11:40 Range/Units Urine Color YELLOW Urine Appearance CLEAR CLEAR Urine pH 7.0 4.5-7.5 Urine Specific [place] 1.014 1.000-1.030 Urine Protein NEG NEG Urine Glucose (UA) NEG NEG Urine Ketones NEG NEG Urine Occult Blood NEG NEG Urine Nitrite NEG NEG Urine Bilirubin NEG NEG Urine Urobilinogen NEG NEG Urine Leukocyte Esterase NEG NEG
--- NOTE | 2016-05-29 10:44 | Discharge Instructions ---
Discharge Instructions Admission Reason for Admission: Chest Pain Discharge Discharge Diagnosis / Problem: 1. Chest pain, acute Myocardial infarction ruled out Discharge Goals Goal(s): Improve disease control, Diagnostic testing, Therapeutic intervention , Prevent Disease Progression Activity Recommendations Activity Limitations: resume your previous activity (as tolerated prior to admission) . Instructions / Follow-Up Instructions / Follow-Up No changes to medications FOLLOW UP 1. Dr Rios 06/02/16 at 2:10 PM 2. Coumadin clinic as per schedule Current Hospital Diet Patient's current hospital diet: AHA Diet (Heart Healthy) Discharge Diet Recommended Diet: AHA Diet (Heart Healthy), Low Sodium Diet (2gm Na) Pending Studies Studies pending at discharge: no Medical Emergencies . Who to Call and When: Medical Emergencies: If at any time you feel your situation is an emergency, please call 911 immediately. . Non-Emergent Contact Non-Emergency issues call your: Primary Care Provider . . "Provider Documentation" section prepared by Dina Cyr. VTE Core Measure Inpt VTE Proph given/why not?: Warfarin (Coumadin)
--- NOTE | 2016-05-29 10:47 | Discharge Summary ---
Discharge Summary Admission Date: May 27, 2016 at 12:18 Discharge Date: May 29, 2016 Discharge Disposition: Home Principal Diagnosis: 1. Chest pain, acute MA ruled out 2. Elevated troponin, likely demand ischemia secondary to Atrial Fibrillation Secondary Diagnoses/Problems: 1. Hypertension 2. Chronic Atrial fibrillation 3. Aortic stenosis 4. GERD 5. COPD 6. CKD III Procedures: Tele monitoring Serial EKG Serial Troponin Echocardiogram CXR Consultations: Cardiology, Dr Ritter Pending Studies/Follow-Up: Instructions / Follow-Up No changes to medications FOLLOW UP 1. Dr Rios 06/02/16 at 2:10 PM 2. Coumadin clinic as per schedule Medication Reconciliation Continued Medications: Albuterol Sulfate (Proair Respiclick) 108 Mcg/Act Aer 2 SPRAYS LISSY Q4 PRN for SOB/Wheezing Amlodipine (Norvasc) 2.5 Mg Tab 0.5 TAB PO DAILY, TAB IF BP > 130, TAKE OTHER HALF Aspirin (Aspirin Ec) 81 Mg Tab 81 MG PO DAILY Atorvastatin (Lipitor) 20 Mg Tab 1 TAB PO DAILY for 90 Days, #90 TAB 1 Refill Benzonatate (Benzonatate) 100 Mg Cap 100 MG PO TID PRN for Cough Budesonide/Formoterol Fumarate (Symbicort 160/4.5 Inhaler ) Aero 2 PUFFS INH BID, INHALER Ferrous Sulfate (Kp Ferrous Sulfate) 325 Mg Tab 1 TAB PO DAILY for 30 Days, #30 TAB 3 Refills Fish Oil ([place]-3) 1 Ea Cap 1000 MG PO DAILY, CAP Latanoprost (Latanoprost) 37 Drops/2.5 Ml Soln 1 DROP OPB HS, #3 Levalbuterol Hcl (Levalbuterol) 1.25 Mg/0.5 Ml Neb 1 DOSE INH Q2H PRN for SOB/Wheezing Levothyroxine Sodium (Levothyroxine Sodium) 125 Mcg Tab 125 MCG PO DAILY, #30 Metoprolol Tartrate (Lopressor) 25 Mg Tab 12.5 MG PO BID, TAB Omeprazole (Prilosec) 20 Mg Cap 20 MG PO DAILY, CAP Psyllium (Metamucil) 48.57 % Pow 1 DOSE PO DAILY PRN for Constipation Tamsulosin HCl (Tamsulosin HCl) 0.4 Mg Cap 0.4 MG PO DAILY, #30 Umeclidinium [place] (Incruse Ellipta) 62.5 Mcg/Inh Inh 1 PUFF PO DAILY Warfarin Sod (Coumadin) 2.5 Mg Tab 1 TAB PO UD for 30 Days, TAB 3 Refills monday and monday Warfarin Sodium (Coumadin) 5 Mg Tab 1 TAB PO UD for 90 Days, TAB 1 Refill all days except monday and monday Discontinued Medications: Amoxicillin & Pot Clavulanate (Augmentin 875-125 mg) 1 Tab Tab 1 TAB PO UD, #14 TAB Admission Information HPI (per Admitting provider): 86 yoM with h/p PAF on anticoagulation, COPD with recent flare 2/2 sinusitis, GERD and s/p bioprosthetic valve replacement in 2013 presents to the ER with new onset chest pain. The pain began yesterday after a lunch of lasagna, and was described as centrally located (points to lower sternum/epigastric region) without radiation, felt like a burning consistent pain that went away right before dinner and again returned after a dinner of the same lasagna. He went to bed with it, woke up a couple of times and felt the same pain, and awoke this morning with it. He denies any associated symptoms of diaphoresis, shortness of breath, lightheadedness that occurred yesterday. However, this morning he began to feel poorly with a worsening of the chest pain, shortness of breath, palpitations and heart racing. He took his BP which was in the 70s systolic with a pulse in the 120-130s. This was repeated shortly afterward and was similar. This brought him to the ER (by POV) where initial vitals were 109/ 58 P 96 RR 22 37.1 and 95% on RA. He was placed on oxygen for comfort (no documented hypoxia) and was given ASA 324mg and Pepcid. EKG revealed afib with a rate of 90bpm and no ST changes, Q waves or TWI to indicate active ischemia. A troponin was 0.54, CXR was negative and exam was documented below. In the past two weeks he has been fighting an URI, initially seen by IM on 05/10 and describing a chest heaviness with SOB. At that time he was started on Lasix and Prednisone for 3 days. On followup on 05/19, however, he c/o worsened nasal congestion and productive cough at which time he was given more steroids and a 10-day course of Augmentin which is almost complete. Physical Exam (per Admitting): GEN: WNWD, in no acute distress, alert and appropriate, oxygen in place, no tachypnea or conversational dyspnea HEENT: NC/AT, PERRL, normal sclerae, pharynx non-acute,TM pearly-no effusion, sinuses not TTP CARDIO: reg rate, sinus rhythm on exam, S1/2 heard without m/g/r LUNGS: CTA bilaterally, no crackles, rales or wheezes, good diaphragmatic excursion ABD: soft, non-tender, non-distended, no rebound or guarding, ventral hernia EXTREMITY: pulses are regular, RP and DP palpable 2+ bilat, no LE swelling or edema, extremities are warm and well-perfused NEURO: CN 2-12 grossly intact, sensation intact throughout MUSC: anterior chest wall non-tender to palpation, no gross focal deficits, able to sit up with ease, moves all extremities equally SKIN: warm and dry Hospital Course Assessment and Plan : 86 yo M with valvular heart disease and known PAF on anticoagulation who presents with acute chest pain, shortness of breath and palpitations that have resolved. CHEST PAIN, ATYPICAL : Less likely cardiac -EKG x 2 - no acute changes, Troponin - elevated, Echo- Mild LVH, EF 60-65%, LA /RA - severe dilation, Bioprosthetic aortic valve, Mild MR -Did well ambulating in hallway -Continue with ASA, Atorvastatin, Metoprolol -Cardiology on board. Appreciate inputs. No plans for further cardiac intervention, Cleared for discharge to ELEVATED TROPONIN 0.496, 0.387, 0.30 likely secondary to demand ischemia secondary to A fib -Echo- no wall motion abnormalities -Monitored on telemetry PAROXYSMAL ATRIAL FIBRILLATION- Atrial fibrillation, rate controlled. HR was in 120-130s at home, but has been rate controlled 70-80s here. -Continue with ASA, Coumadin CKD-III At baseline HTN- Controlled -Continue with home medications URTI- Resolved -Antibx/Steroids course completed recently. AORTIC STENOSIS S/P BIOPROSTHETIC VALVE COPD -Recently completed course of prednisone, antibiotics -No signs of exacerbation GERD -PPI daily DVT proph-coumadin Code Status: DNR BUT OK WITH EMERGENT CARDIOVERSION DISPOSITION Observation status Okay to discharge home today Discussed with cardiology- cleared for discharge today Total time spent on discharge = 25 minutes This includes examination of the patient, discharge planning, medication reconciliation, and communication with other providers. Discharge Instructions Discharge Diagnosis / Problem: 1. Chest pain, acute Myocardial infarction ruled out Discharge Goals Goal(s): Improve disease control, Diagnostic testing, Therapeutic intervention , Prevent Disease Progression Activity Recommendations Activity Limitations: resume your previous activity (as tolerated prior to admission) . Instructions / Follow-Up Instructions / Follow-Up No changes to medications FOLLOW UP 1. Dr Rios 06/02/16 at 2:10 PM 2. Coumadin clinic as per schedule Current Hospital Diet Patient's current hospital diet: AHA Diet (Heart Healthy) Discharge Diet Recommended Diet: AHA Diet (Heart Healthy), Low Sodium Diet (2gm Na) Pending Studies Studies pending at discharge: no Medical Emergencies . Who to Call and When: Medical Emergencies: If at any time you feel your situation is an emergency, please call 911 immediately. . Non-Emergent Contact Non-Emergency issues call your: Primary Care Provider . . "Provider Documentation" section prepared by Dina Cyr. VTE Core Measure Inpt VTE Proph given/why not?: Warfarin (Coumadin)
[2016-05-29 11:10] VITALS: BP 127/79; PULSE 83; TEMP 36.8; O2SAT 95
== END 2016-05-29 14:24 | disposition home or self-care (01) | DRG 313 ==
LOC: ENRESERVTM → ENRESERVDT → C.EDB 09:57 → C.2T 12:18
PROVIDERS: ADMIT Hospitalist; ATTEND Internal Medicine
DX: R07.89 Other chest pain (principal); I24.8 Other forms of acute ischemic heart disease; I48.2 Chronic atrial fibrillation; I12.9 Hypertensive chronic kidney disease with stage 1 through stage 4 chronic kidney disease, or unspecified chronic kidney disease; N18.3 Chronic kidney disease, stage 3 (moderate); J44.9 Chronic obstructive pulmonary disease, unspecified; I48.0 Paroxysmal atrial fibrillation; K21.9 Gastro-esophageal reflux disease without esophagitis; Z86.73 Personal history of transient ischemic attack (TIA), and cerebral infarction without residual deficits; J45.909 Unspecified asthma, uncomplicated; E78.5 Hyperlipidemia, unspecified; Z87.891 Personal history of nicotine dependence; E03.9 Hypothyroidism, unspecified; H90.5 Unspecified sensorineural hearing loss; Z95.2 Presence of prosthetic heart valve; Z83.3 Family history of diabetes mellitus; Z80.9 Family history of malignant neoplasm, unspecified; Z82.49 Family history of ischemic heart disease and other diseases of the circulatory system; Z82.3 Family history of stroke; Z91.013 Allergy to seafood; R79.89 Other specified abnormal findings of blood chemistry

== ENCOUNTER 2017-06-09 14:11 | Emergency (ER) | payer OTHER ==
[~2017-06-09] VITALS: Ht 167.6 cm; Wt 86.6 kg
[~2017-06-09 14:11] MED LIST changes: +ALBU18002 NAE; -ALBU1AER9 INH; -ASPI81TA28 PO; -ATRINS NEB; -BENZ100C7 PO; +CMD/25 PO; +FERR1TAB13 PO; -FERR325T51 PO; -FLM4 PO; -IPRASOL4 INH; -LEVA1.255 INH; -LEVO125T4 PO; -OMEG10007 PO; -OMEP20CA9 PO; +PSYL48.59 PO; -PSYL55.43 PO; -SENN-61 PO; -SYMIN160 INH; -UMEC1INH PO; -WARF5TAB7 PO; +WARF5TAB90 PO; -XLTOPS OPB
[2017-06-09 14:13] VITALS: Ht 167.6 cm; Wt 86.6 kg
[2017-06-09 14:57] LABS: BASO % 0.7 %; BASO ABS # 0.04 K/uL (0-0.2); EOS % 2.2 %; EOS ABS # 0.13 K/uL (0-0.5); HEMATOCRIT 38.3 % (42-52); IG# 0.02 K/uL (0.00-0.02); LYMPH % 15.5 %; MEAN CELL VOLUME 87.2 fL (80-100); MEAN CORPUSCULAR HEMOGLOBIN 29.6 pg (25-34); MEAN CORPUSCULAR HGB CONC 33.9 g/dl (32-36); MEAN PLATELET VOLUME 9.2 fL (7.4-10.4); MONO % 7.4 %; MONO ABS # 0.43 K/uL (0.11-0.59); NEUT % 73.9 %; NEUT ABS # 4.28 K/uL (1.4-6.5); PLATELET COUNT 228 K/uL (130-400); RED CELL DISTRIBUTION WIDTH CV 13.2 % (11.5-14.5); RED CELL DISTRIBUTION WIDTH SD 42.5 fL (36.4-46.3)
[2017-06-09] MEDS ORDERED: LSX20 PO (15:06)
[2017-06-09] MEDS ORDERED: METO25TA56 PO (15:06)
[2017-06-09] MEDS ORDERED: ATOR-22 PO (15:06)
[2017-06-09] MEDS ORDERED: ATRINSX NEB (15:06)
[2017-06-09] MEDS ORDERED: VNTHFA/IN INH (15:06)
[2017-06-09 15:19] LABS: CALCIUM 9.1 mg/dl (8.5-10.1); CREATININE 1.21 mg/dl (0.60-1.40); POTASSIUM 4.3 mmol/L (3.5-5.1)
[2017-06-09 15:20] LABS: PTT PATIENT 39.9 SECONDS (21.0-31.0)
[2017-06-09] MEDS ORDERED: FLM4 PO (15:21)
[2017-06-09] MEDS ORDERED: LEVA1.255 INH (15:21)
[2017-06-09 15:29] LABS: INR 3.8 (0.9-1.1)
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
--- NOTE | 2017-06-09 16:27 | Pharmacy Progress Note ---
ED Pharmacist Counseling Note Date of Service: Jun 09, 2017. I spent 15 minutes with the patient and son-in-law discussing warfarin dosing / INR results. Subjective On warfarin for Afib Patient experienced fall on Monday (06/05). INR drawn on 06/06 was 2.5. Since the fall, patient has been taking acetaminophen 1000 mg po TID for pain. Denied changes in eating habits/vitamin K intake, bowel habits, alcohol intake Home warfarin dose is 2.5 mg Monday, Monday and 5 mg all others Patient reported he has not taken his warfarin dose yet today Next scheduled appointment at Coumadin clinic was June 26 Denied headache, bleeding Son-in law noted that patient was a bit "slow" and "off" today but patient noted this was because he was tired as he was not sleeping well. I notified Dr. Gibbs of this. Objective INR was 3.8 in ED today Assessment * Supratherapeutic INR likely 2nd increased acetaminophen use s/p fall Recommendation * Hold warfarin today (2.5 mg day). Decrease warfarin to 2.5 mg tomorrow. Then resume home dose. * OK to continue acetaminophen if it is helping with pain, but limit use if possible. Do not use NSAIDs. * Follow-up with Coumadin clinic early next week (note: son-in law was already trying to get an appointment before I left) * Monitor signs/symptoms of bleeding. Return immediately if noted. * I counseled patient and son-in-law and specifically discussed red/black stools, orange/red urine, any abnormal bleeding/bruising, and headache all as possible symptoms of bleeding. Stressed bruising and headache as patient is s/ p fall on Monday. Patient and son-in-law acknowledged understanding.
[2017-06-09 16:34] VITALS: BP 165/88; PULSE 66; TEMP 36.7; O2SAT 96
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
[2017-06-09] MEDS ORDERED: SYMIN160 INH (17:52)
[2017-06-09] MEDS ORDERED: OMEG10007 PO (17:52)
[2017-06-09] MEDS ORDERED: OMEP20CA9 PO (17:52)
[2017-06-09] MEDS ORDERED: LEVO125T5 PO (17:52)
[2017-06-09] MEDS ORDERED: XLTOPS OPB (17:52)
[2017-06-09] MEDS ORDERED: UMEC1INH PO (21:56)
[2017-06-09] MEDS ORDERED: BENZ100C7 PO (21:56)
[2017-06-09] MEDS ORDERED: ASPI81TA28 PO (21:56)
== END 2017-06-09 16:36 | disposition home or self-care (01) ==
LOC: C.EDB 14:12 → C.EDD 16:36
DX: S79.912A Unspecified injury of left hip, initial encounter (principal); S09.90XA Unspecified injury of head, initial encounter; W10.1XXA Fall (on)(from) sidewalk curb, initial encounter; I48.91 Unspecified atrial fibrillation; R79.1 Abnormal coagulation profile; J45.909 Unspecified asthma, uncomplicated; N18.3 Chronic kidney disease, stage 3 (moderate); J44.9 Chronic obstructive pulmonary disease, unspecified; E78.5 Hyperlipidemia, unspecified; K21.9 Gastro-esophageal reflux disease without esophagitis; Z87.891 Personal history of nicotine dependence; I12.9 Hypertensive chronic kidney disease with stage 1 through stage 4 chronic kidney disease, or unspecified chronic kidney disease; E03.9 Hypothyroidism, unspecified; Z86.73 Personal history of transient ischemic attack (TIA), and cerebral infarction without residual deficits; Z95.2 Presence of prosthetic heart valve; Z80.9 Family history of malignant neoplasm, unspecified; Z83.3 Family history of diabetes mellitus; Z82.49 Family history of ischemic heart disease and other diseases of the circulatory system; Z82.3 Family history of stroke; Z79.82 Long term (current) use of aspirin; Z79.899 Other long term (current) drug therapy; Z79.01 Long term (current) use of anticoagulants; Z91.013 Allergy to seafood; Z88.8 Allergy status to other drugs, medicaments and biological substances

== ENCOUNTER 2018-07-30 10:01 | Inpatient (IN) ==
[2018-07-30] MEDS ORDERED: methylPREDNISolone 125 MG/2 ML VIAL IV STA (10:16)
[2018-07-30] MEDS ORDERED: ALBUT/IPRATROP 3MG/0.5MG NEB 3 ML VIAL NEB ONE (10:16)
--- NOTE | 2018-07-30 10:34 | XRay Report ---
XR chest 1V portable CLINICAL HISTORY: Shortness of breath COMPARISON STUDY: 05/17/2018 FINDINGS: There are postsurgical changes of a midline sternotomy. There is mild elevation interstitiu m suggesting mild pulmonary vascular congestion/fluid overload. There is no lobar consolidation. Incr eased markings the left lung base remain unchanged the prior study and are felt to be secondary to a prominent fat pad and atelectatic change.[ IMPRESSION: 1. Radiographic evidence of mild pulmonary vascular congestion/fluid overload 2. No evidence of acute parenchymal consolidation Electronically signed by: Catarino Garcia M.D. 07/30/2018 10:32 AM
[2018-07-30 10:44] LABS: Eosinophils # (auto) 0.03 K/uL (0-0.5); Eosinophils % (auto) 0.3 %; Hematocrit (blood only) 38.8 % (42-52); Hemoglobin 12.9 g/dL (14.0-18.0); Immature Granulocytes # (auto) 0.06 K/uL (0.00-0.02); Immature Granulocytes % (auto) 0.6 %; Lymphocytes % (auto) 11.7 %; Mean Corpuscular Hgb Conc 33.2 g/dL (32-36); Mean Corpuscular Volume 90.2 fL (80-100); Mean Platelet Volume 9.3 fL (7.4-10.4); Monocytes # (auto) 0.02 K/uL (0.11-0.59); Monocytes % (auto) 0.2 %; Neutrophils # (auto) 8.97 K/uL (1.4-6.5); Neutrophils % (auto) 87.2 %; Platelet Count 215 K/uL (130-400); RDW Coefficient of Variation 13.5 % (11.5-14.5); RDW Standard Deviation 44.2 fL (36.4-46.3); White Blood Count 10.28 K/uL (4.8-10.8)
[2018-07-30 10:45] LABS: Base Excess VBG 4.4 mEq/L; Oxygen Saturation VBG 82.4 %; pH VBG 7.38 (7.36-7.41)
[2018-07-30 10:57] LABS: INR 3.3 (0.9-1.1); Prothrombin Time 31.4 Seconds (9.0-12.0)
[2018-07-30 11:06] LABS: BUN Creatinine Ratio 17.7 (10-20); Blood Urea Nitrogen 24 mg/dl (7-18); Calcium 9.2 mg/dl (8.5-10.1); Carbon Dioxide 32 mmol/L (21-32); Chloride 102 mmol/L (98-107); Est GFR (African American) 55.2; Est GFR (Non-African American) 47.6; Glucose 128 mg/dl (70-99); Magnesium 1.7 mg/dl (1.8-2.4); Sodium 137 mmol/L (136-145)
[2018-07-30 11:10] LABS: Troponin I < 0.015 ng/ml (0-0.045)
--- NOTE | 2018-07-30 12:26 | History & Physical Report ---
Date of Service July 30, 2018 Assessment & Plan (1) Acute respiratory failure: ARF likely 2/2 COPD exacerbation 2/2 underlying viral illness. Recent failure of outpatient antibiotic and steroid regimens times two, and presents with worsening dyspnea. Cont Solumedrol 40 IV q8h, scheduled duonebs (however, will give him a small break as he is tachycardic after the one hour continuous neb). As he has a severe COPD exacerbation and risk factors for Pseudomonas including advanced COPD, frequent administration of antibiotics and systemic glucocorticoid use, will add IV cefepime empirically and de-escalate once clinically improved. Sputum culture pending. He does see pulmonology as an outpatient. If not improved in approximately 48 hours consider consulting pulmonology. N.p.o. while on continuous BiPAP (2) COPD exacerbation: as above. (3) Permanent atrial fibrillation: Cont warfarin and metoprolol per home regimen. (4) Chronic diastolic heart failure: Euvolemic, cont daily PO Lasix per home regimen. Cont daily standing weights. Low salt diet. (5) HTN (hypertension): was slightly elevated in setting of continuous neb treatment and tachypnea, but this improved on BIPAP therapy. (6) Hypothyroid: Cont Synthroid per home regimen. (7) CKD (chronic kidney disease) stage 3, GFR 30-59 ml/min: at baseline. Avoid renally toxic substances and renally dose meds as appropriate. (8) Hypomagnesemia: replace and repeat in am. (9) S/P aortic valve replacement with bioprosthetic valve: (10) DVT prophylaxis: Warfarin DNR Dispo-PCU Ashlee Montenegro DO [facility] Hospitalist History of Present Illness Chief Complaint: Persistent shortness of breath Primary Care Provider: Taj Rios MD 88-year-old male with history of chronic hypoxemic respiratory failure secondary to COPD on 2 L home oxygen continuously presents to the ER with persistent shortness of breath, wheezing and coughing. His symptoms have persisted for at least the last 2 weeks. He did have a wnfzseiq-xu-egh who was sick with whom he lives. She was sick approximately 1 week before he became ill with symptoms. He has failed outpatient antibiotics including Z-Bhavik and doxycycline as well as various prednisone tapers. He does take chronic daily prednisone at 5 mg daily. He does have a history of diastolic heart failure and is on daily Lasix. He participates in daily weights [employer] and weight has not fluctuated up or down recently. He was given 1 dose of Lasix last week that was in addition to his typical 40 mg daily, however, beyond that additional Lasix has been not been needed. He denies any chest pain, fevers, chills. He reports initially 2 weeks ago his symptoms included nasal congestion and sore throat but these have dissipated. He denies any nasal congestion or other upper airway congestion at this time. He otherwise denies any GI side effects including nausea, vomiting, diarrhea, upset stomach. He denies any blood in his stool. He denies any swelling of his legs. Notably he was given Solu-Medrol 125 mg IV in the ER in addition to an hour-long albuterol nebulizer. As a result his heart rate is in the 120s and he has chronic A. fib. As time progressed in the ER he became more tachypneic and required BiPAP. He is comfortable resting on 8/4 with 30% FiO2 at this time. Son is at bedside and corroborated exam. He lives with the son. The patient does not smoke currently but is a former smoker. He does see a prefinish operator with [facility] regularly. Allergies Allergy/AdvReac Type Severity Reaction Status Date / Time shellfish derived Allergy Severe ANAPHYLAXIS Verified 07/30/18 11:06 lisinopril Allergy Unknown DROPS Unverified 07/30/18 11:06 BLOOD PRESSURE TO LOW, shrimp Allergy Unknown ANAPHYLAXIS Unverified 07/30/18 11:06 Home Medications Home Medications Medication Instructions Recorded Confirmed Type [place] 1 tab PO QDL 05/17/18 07/30/18 History albuterol sulfate [Ventolin HFA] 2 puff INHALATION Q4 PRN 05/17/18 07/30/18 History aspirin [Aspir-Low] 81 mg PO QAM 05/17/18 07/30/18 History atorvastatin [Lipitor] 20 mg PO QAM 05/17/18 07/30/18 History ferrous sulfate 325 mg PO QAM 05/17/18 07/30/18 History furosemide [Lasix] 40 mg PO DAILY PRN 05/17/18 07/30/18 History furosemide [Lasix] 40 mg PO QAM 05/17/18 07/30/18 History latanoprost [Xalatan] 1 drp OPB HS 05/17/18 07/30/18 History levalbuterol HCl [Xopenex] 1 dose INHALATION UD PRN 05/17/18 07/30/18 History levothyroxine [Synthroid] 112 mcg PO QAM 05/17/18 07/30/18 History metoprolol tartrate 25 mg PO BID 05/17/18 07/30/18 History omeprazole 20 mg PO QAM 05/17/18 07/30/18 History prednisone 5 mg PO UD 05/17/18 07/30/18 History prednisone [Deltasone] 20 mg PO UD 05/17/18 07/30/18 History tamsulosin 0.4 mg PO QDD 05/17/18 07/30/18 History warfarin [Coumadin] 5 mg PO MOWEFR@1600 05/17/18 07/30/18 History cholecalciferol (vitamin D3) 0 unit PO QDL 07/30/18 07/30/18 History [Vitamin D3] cyanocobalamin (vitamin B-12) 1,000 mcg PO QDL 07/30/18 07/30/18 History [Vitamin B-12] docusate sodium [Colace] 100 mg PO BID 07/30/18 07/30/18 History doxycycline hyclate 100 mg PO BID 07/30/18 07/30/18 History lpzwuhnvcyu-cebvhvkpy-uobjmdgq 1 puff INHALATION QAM 07/30/18 07/30/18 History [Trelegy Ellipta] polyethylene glycol 3350 [Miralax] 17 g PO QAM 07/30/18 07/30/18 History warfarin 2.5 mg PO SUTUTHSA@1600 07/30/18 07/30/18 History Past Med/Surg History Medical History Permanent atrial fibrillation Chronic diastolic heart failure Hernia HTN (hypertension) (Chronic) COPD (chronic obstructive pulmonary disease) (Chronic) Hypothyroid (Chronic) Dyslipidemia (Chronic) GERD (gastroesophageal reflux disease) (Chronic) CKD (chronic kidney disease) stage 3, GFR 30-59 ml/min (Chronic) Sensorineural hearing loss (Chronic) TIA (transient ischemic attack) (Resolved) Cerebrovascular disease (Chronic) History of tobacco use (Chronic) "quit in 1982" Paroxysmal a-fib (Chronic) "postoperative" Asthma (Chronic) Bronchitis CHF (congestive heart failure) Respiratory failure, acute Surgical History History of CEA (carotid endarterectomy) "Right side" History of intestinal surgery S/P aortic valve replacement with bioprosthetic valve Heart valve replaced (Chronic) "aortic valve replacement 2013" On 01/26/15 18:57 Suzanne Cheek wrote "aortic valve replacement " Family History Sister Lung cancer Brother FH: stomach cancer Social History Preferred Language: Faroese marital status: / Current Living Situation: Family Current Living Situation Comment: lives with son and DIL current occupational status: retired Feels Safe at Home: Yes Smoking Status: Former smoker Hx Alcohol Use: No Review of Systems At least ten systems were reviewed and negative except as indicated in HPI above. Physical Exam Vital Signs (Past 24 Hours): Last Vital Signs Temp 36.5 C 07/30/18 10:04 Pulse 91 H 07/30/18 11:09 Resp 24 07/30/18 11:09 BP 172/88 H 07/30/18 11:09 Pulse Ox 98 07/30/18 11:09 CONSTITUTIONAL: WNWD, vitals as above, generally well-appearing, appears comfortable on BIPAP EYES: normal conjuctivae, no scleral icterus RESPIRATORY: mild wheezing at bases, poor air movement, no crackles or rales. No tachypnea on BIPAP CARDIOVASCULAR: irregular rhythm, tachy, S1 and 2 heard without murmurs, no peripheral edema GASTROINTESTINAL: normal bowel sounds, soft, nontender, nondistended, reducible ventral hernia. MUSCULOSKELETAL: strength 5/5 throughout, head is normocephalic and atraumatic SKIN: warm and dry NEUROLOGIC: no facial palsy, no dysarthria. CN 2-12 grossly intact, no sensory deficit, normal cognition, normal speech, no gross focal deficits. PSYCHIATRIC: alert cooperative and oriented to person, place and time. Results & Data Laboratory Results Short CBC 07/30/18 Range/Units 10:27 WBC 10.28 (4.8-10.8) K/uL Hgb 12.9 L (14.0-18.0) g/dL Hct 38.8 L (42-52) % Plt Count 215 (130-400) K/uL BMP 07/30/18 10:27 Sodium 137 Potassium 4.0 Chloride 102 Carbon Dioxide 32 BUN 24 H Creatinine 1.34 Glucose 128 H Calcium 9.2 Cardiac Enzymes 07/30/18 Range/Units 10:27 Troponin I < 0.015 (0-0.045) ng/ml Diagnostic Findings XR chest 1V portable CLINICAL HISTORY: Shortness of breath COMPARISON STUDY: 05/17/2018 FINDINGS: There are postsurgical changes of a midline sternotomy. There is mild elevation interstitium suggesting mild pulmonary vascular congestion/fluid overload. There is no lobar consolidation. Increased markings the left lung base remain unchanged the prior study and are felt to be secondary to a prominent fat pad and atelectatic change.[ IMPRESSION: 1. Radiographic evidence of mild pulmonary vascular congestion/fluid overload 2. No evidence of acute parenchymal consolidation Medications Administered Albuterol 12ml (1hr NEB) Solumedrol 125mg IV x 1 dose. Code Status & VTE Plan Code Status Do Not Resuscitate, confirmed on admission with patient and son who is at bedside. VTE Prophylaxis Plan VTE Prophylaxis will be ordered: Yes Critical Care Time Critical Care Time: No
[2018-07-30] MEDS ORDERED: POLYETHYLENE (MIRALAX) 17 GM PACK PO PRN (14:09)
[2018-07-30] MEDS ORDERED: ACETAMINOPHEN 325 MG TAB PO PRN (14:09)
[2018-07-30] MEDS ORDERED: ONDANSETRON INJ 2 MG/ML 2 ML VIAL IV PRN (14:09)
[2018-07-30] MEDS ORDERED: CEFEPIME 2,000 MG in SYRINGE 7.5 ML IV SCH (14:30)
[2018-07-30] MEDS: MAGNESIUM SULFATE / D5W 1 GM/100 ML BAG IV SCH ×2 (14:36→15:46)
[2018-07-30] MEDS ORDERED: CEFEPIME CONSULT ACTIVE PRN (14:52)
[2018-07-30] MEDS: ALBUT/IPRATROP 3MG/0.5MG NEB 3 ML VIAL NEB SCH ×4 (15:09→23:20)
--- NOTE | 2018-07-30 15:33 | Emergency Department Note ---
Entered by Elvira Prieto acting as a scribe for ED Provider Note Name: Aayush Toribio Age: 88 Arrives Via: Private vehicle Informant: Patient, son CC: Shortness of breath HPI: An 88 year old male arrives for evaluation of persistent shortness of breath beginning over the past 2 weeks. He notes exertion exacerbates his symptoms. The patient reports a cough. He denies abdominal or chest pain. The patient states he has not had to increase his usual 2L oxygen. His son reports the patient has been treated with albuterol, steroids, doxycycline, and azithromycin, which have not improved his symptoms. The patient sees Dr. Guerra as his ip counsel and Dr. Rios as his PCP. ROS: See above HPI for pertinent positives & negatives. A total of 10 systems reviewed and were otherwise negative. Past Medical History: Asthma, COPD, TIA, CKD (stage III), HTN, Afib, GERD, hypothyroid, dyslipidemia, CHF, hernia. Past Surgical History: Heart valve replacement, exploratory laparotomy, carotid endarterectomy Family History: Omitted due to patient age. Social History: , retired. Home Medications: Albuterol sulfate, aspirin, atorvastatin, colace, doxycycline hyclate, oqwnajytanc-[id number], furosemide, latanoprost, levalbuterol HCl, metoprolol tartrate, omega plex, omeprazole, polyethylene glycol, prednisone, tamsulosin, warfarin. Allergies: Lisinopril, shellfish-derived Physical: Vitals: Blood pressure: 172/88. Heart rate: 91. Respiratory rate: 24. Temperature: 97.7 F. O2 saturation: 98, delivery: nebulizer. Exam: GENERAL: Patient is chronically unwell appearing and in mild distress. EYES: No scleral icterus, unremarkable pupils. ENT: Mucous membranes moist, no nasal congestion. NECK: No masses appreciated, no meningismus, trachea is midline. RESPIRATORY: Very tight, diminished lung sounds throughout. Tachypneic, mildly dyspneic CARDIOVASCULAR: Regular rate and rhythm. No murmurs, rubs, gallops appreciated. GASTROINTESTINAL: Abdomen soft, non-tender, no peritonitis. Bowel sounds positive. No masses appreciated. BACK: No midline tenderness, no CVA tenderness EXTREMITIES: Normal motion all extremities, no cyanosis, no edema. NEUROLOGIC: Alert and oriented, no acute motor or sensory deficits, no focal weakness, cranial nerves grossly intact. SKIN: No rash, no jaundice, no diaphoresis. ED Course: Prior Medical Record, Triage/Nursing Notes, Medications, Allergies reviewed by Me Vital Signs: reviewed and remarkable for HTN Labs: Reviewed and remarkable for mild hypercapnea Interventions: Saline Lock, Solumedrol 125mg IV, Duoneb continuous, BiPAP Imaging: X ray results are stated below per my interpretation: Chest: 1 view: No infiltrate, no effusion, normal cardiac border. COPD findings Consults: 1147: I reviewed the patient's case with Mary Mitchell PA-C, [facility] hospitalist. Dr. Montenegro's service will evaluate the patient for further management. 1215: Discussed the case with Dr. Montenegro, [facility] hospitalist, who is aware the patient is on BiPAP. Reassessments/Times: 1115: I reevaluated the patient and discussed his test results. 1154: Upon reevaluation, the patient is resting. The patient and his son are in agreement with the treatment plan. 1204: The patient is worsening and is hypoxic post-nebulizer. He is now in Afib with RVR. He will be put on BiPAP. Blood pressure: Elevated - evaluation by hospitalist. Disposition: Evaluation by hospitalist. Prescriptions: none. Differentials: Etiologies such as infections, reactive airway disease, COPD, pneumonia, pleural effusion, pulmonary edema, ARDS, pneumothorax, CHF, cardiac ischemia, cardiac tamponade, dysrhythmia, anemia, pulmonary embolism, musculoskeletal, gastrointestinal process, as well as others were entertained. Medical Decision Makin yr old male with worsening shortness of breath last few weeks with failure of several rounds steroids and abx. Very tight on arrival. Continous neb with opening of lungs though loud wheezing. Starting to tire out thus switched to bipap. Noted to be in afib rvr though likely due to duoneb and will hold on rate control given good blood pressure and no evidence chf. No clear indication for emergent abx thus will defer them to hospitalist. INR therapeautic thus unlikely PE. Impression: Acute Exacerbation of COPD Critical Care Time: I have personally spent greater than 30 minutes of critical care time in the direct management of this patient. Acute COPD with worsening respiratory failure in ED started on BiPAP and continous nebs. This was a life/limb threatening event. This includes time spent evaluating patient, direct bedside care, chart review, placing orders, interpretation of diagnostic studies, discussion with consultants, patient, and family members, as well as other required patient management activities. This 30 minutes is in excess of all separately billable procedures. Fredi Franco MD The scribe's documentation has been prepared under my direction and personally reviewed by me in its entirety. I confirm that the note above accurately reflects all work, treatment, procedures, and medical decision making performed by me. Impression & Plan Acute exacerbation of chronic obstructive pulmonary disease (COPD) Past Med/Surg History Medical History Permanent atrial fibrillation Chronic diastolic heart failure Hernia HTN (hypertension) (Chronic) COPD (chronic obstructive pulmonary disease) (Chronic) Hypothyroid (Chronic) Dyslipidemia (Chronic) GERD (gastroesophageal reflux disease) (Chronic) CKD (chronic kidney disease) stage 3, GFR 30-59 ml/min (Chronic) Sensorineural hearing loss (Chronic) TIA (transient ischemic attack) (Resolved) Cerebrovascular disease (Chronic) History of tobacco use (Chronic) "quit in 1982" Paroxysmal a-fib (Chronic) "postoperative" Asthma (Chronic) Bronchitis CHF (congestive heart failure) Respiratory failure, acute Surgical History History of CEA (carotid endarterectomy) "Right side" History of intestinal surgery S/P aortic valve replacement with bioprosthetic valve Heart valve replaced (Chronic) "aortic valve replacement 2013" On 01/26/15 18:57 Suzanne Cheek wrote "aortic valve replacement " Family History Sister Lung cancer Brother FH: stomach cancer Social History Preferred Language: Tajik Communication Ability: Effective Prepleater Required: No Beliefs That Will Affect Care: None marital status: / Current Living Situation: Family Current Living Situation Comment: lives with son and DIL current occupational status: retired Other Information That Helps Us Care for You: No Feels Safe at Home: Yes Safety Concerns: Feels Safe At This Time Smoking Status: Former smoker Hx Alcohol Use: No Hx Substance Use: No Results & Data Vital Signs Vital Signs - 24 hr 07/30/18 10:04 07/30/18 10:27 07/30/18 10:30 Temperature 36.5 C Temperature Source Oral Sepsis Recent Fever Within 48 Hours No Sepsis New/Unexplained Change in Mental Status No Sepsis Action Taken by Nursing No Action Required Pulse Rate 79 Pulse Rate [Apical] 87 Pulse Rate [Left Finger] Pulse Rhythm [Left Finger] Pulse Strength [Left Finger] Respiratory Rate 20 14 Respiratory Effort / Characteristics Spontaneous Spontaneous Short of Breath Respiratory Depth Respiratory Pattern Blood Pressure 133/71 Blood Pressure [Right Arm] Blood Pressure Mean 91 Blood Pressure Mean [Right Arm] Blood Pressure Position [Right Arm] Pulse Oximetry 96 99 95 Oxygen Delivery Method Nasal Cannula Nasal Cannula Nasal Cannula Oxygen Flow Rate 2 2 2 Fraction of Inspired Oxygen SaO2/FiO2 Ratio 07/30/18 10:31 07/30/18 11:09 07/30/18 12:20 Temperature Temperature Source Sepsis Recent Fever Within 48 Hours Sepsis New/Unexplained Change in Mental Status Sepsis Action Taken by Nursing Pulse Rate 76 118 H Pulse Rate [Apical] 91 H Pulse Rate [Left Finger] Pulse Rhythm [Left Finger] Pulse Strength [Left Finger] Respiratory Rate 24 17 Respiratory Effort / Characteristics Spontaneous Spontaneous Short of Breath Respiratory Depth Normal Respiratory Pattern Regular Blood Pressure Blood Pressure [Right Arm] 172/88 H Blood Pressure Mean Blood Pressure Mean [Right Arm] 116 Blood Pressure Position [Right Arm] Lying Pulse Oximetry 99 98 98 Oxygen Delivery Method Nasal Cannula Nebulizer Oxygen Flow Rate Fraction of Inspired Oxygen 30 SaO2/FiO2 Ratio 07/30/18 12:58 07/30/18 13:15 07/30/18 14:06 Temperature Temperature Source Sepsis Recent Fever Within 48 Hours Sepsis New/Unexplained Change in Mental Status Sepsis Action Taken by Nursing Pulse Rate 90 Pulse Rate [Apical] 116 H Pulse Rate [Left Finger] Pulse Rhythm [Left Finger] Pulse Strength [Left Finger] Respiratory Rate 20 13 Respiratory Effort / Characteristics Spontaneous Non-Labored Spontaneous Respiratory Depth Normal Respiratory Pattern Regular Blood Pressure Blood Pressure [Right Arm] 141/80 H Blood Pressure Mean Blood Pressure Mean [Right Arm] 100 Blood Pressure Position [Right Arm] Lying Pulse Oximetry 96 98 Oxygen Delivery Method BiPAP BiPAP Oxygen Flow Rate Fraction of Inspired Oxygen 30 SaO2/FiO2 Ratio 07/30/18 14:15 07/30/18 15:17 Temperature 36.4 C L Temperature Source Oral Sepsis Recent Fever Within 48 Hours Sepsis New/Unexplained Change in Mental Status Sepsis Action Taken by Nursing Pulse Rate Pulse Rate [Apical] Pulse Rate [Left Finger] 117 H 114 H Pulse Rhythm [Left Finger] Irregular Pulse Strength [Left Finger] Normal Respiratory Rate 20 16 Respiratory Effort / Characteristics Non-Labored Spontaneous SOB on Exertion Non-Labored Spontaneous Respiratory Depth Normal Respiratory Pattern Regular Blood Pressure Blood Pressure [Right Arm] 154/70 H Blood Pressure Mean Blood Pressure Mean [Right Arm] 98 Blood Pressure Position [Right Arm] Lying Pulse Oximetry 94 97 Oxygen Delivery Method BiPAP Nasal Cannula Oxygen Flow Rate 2 Fraction of Inspired Oxygen 30 SaO2/FiO2 Ratio 313 Laboratory Data Attestation: I reviewed the patient's lab results. Result diagrams: 07/30/18 10:27 07/30/18 10:27 Lab Results 07/30/18 07/30/18 07/30/18 Range/Units 10:27 10:27 10:27 WBC 10.28 (4.8-10.8) K/uL RBC 4.30 L (4.7-6.1) M/uL Hgb 12.9 L (14.0-18.0) g/dL Hct 38.8 L (42-52) % MCV 90.2 (80-100) fL MCH 30.0 (25-34) pg MCHC 33.2 (32-36) g/dL RDW Std Deviation 44.2 (36.4-46.3) fL RDW Coeff of Thierry 13.5 (11.5-14.5) % Plt Count 215 (130-400) K/uL MPV 9.3 (7.4-10.4) fL Immature Gran % (Auto) 0.6 % Neut % (Auto) 87.2 % Lymph % (Auto) 11.7 % [place] % (Auto) 0.2 % Eos % (Auto) 0.3 % Baso % (Auto) 0.0 % Immature Gran # (Auto) 0.06 H (0.00-0.02) K/uL Neut # (Auto) 8.97 H (1.4-6.5) K/uL Lymph # (Auto) 1.20 (1.2-3.4) K/uL [place] # (Auto) 0.02 L (0.11-0.59) K/uL Eos # (Auto) 0.03 (0-0.5) K/uL Baso # (Auto) 0.00 (0-0.2) K/uL PT 31.4 H (9.0-12.0) Seconds INR 3.3 H (0.9-1.1) VBG pH (7.36-7.41) VBG pCO2 (38-50) mmHg VBG pO2 mmHg VBG HCO3 mmol/L VBG O2 Saturation % VBG Base Excess mEq/L Barometric Pressure mm/Hg Sodium 137 (136-145) mmol/L Potassium 4.0 (3.5-5.1) mmol/L Chloride 102 (98-107) mmol/L Carbon Dioxide 32 (21-32) mmol/L Anion Gap 3.0 (3-11) BUN 24 H (7-18) mg/dl Creatinine 1.34 (0.6-1.4) mg/dl Est Cr Clr Drug Dosing 39.0 ml/min Est GFR ( Amer) 55.2 Est GFR (Non-Af Amer) 47.6 BUN/Creatinine Ratio 17.7 (10-20) Glucose 128 H (70-99) mg/dl Calcium 9.2 (8.5-10.1) mg/dl Magnesium 1.7 L (1.8-2.4) mg/dl Troponin I < 0.015 (0-0.045) ng/ml 07/30/18 Range/Units 10:33 WBC (4.8-10.8) K/uL RBC (4.7-6.1) M/uL Hgb (14.0-18.0) g/dL Hct (42-52) % MCV (80-100) fL MCH (25-34) pg MCHC (32-36) g/dL RDW Std Deviation (36.4-46.3) fL RDW Coeff of Thierry (11.5-14.5) % Plt Count (130-400) K/uL MPV (7.4-10.4) fL Immature Gran % (Auto) % Neut % (Auto) % Lymph % (Auto) % [place] % (Auto) % Eos % (Auto) % Baso % (Auto) % Immature Gran # (Auto) (0.00-0.02) K/uL Neut # (Auto) (1.4-6.5) K/uL Lymph # (Auto) (1.2-3.4) K/uL [place] # (Auto) (0.11-0.59) K/uL Eos # (Auto) (0-0.5) K/uL Baso # (Auto) (0-0.2) K/uL PT (9.0-12.0) Seconds INR (0.9-1.1) VBG pH 7.38 (7.36-7.41) VBG pCO2 54 H (38-50) mmHg VBG pO2 48 mmHg VBG HCO3 31 mmol/L VBG O2 Saturation 82.4 % VBG Base Excess 4.4 mEq/L Barometric Pressure 721.4 mm/Hg Sodium (136-145) mmol/L Potassium (3.5-5.1) mmol/L Chloride (98-107) mmol/L Carbon Dioxide (21-32) mmol/L Anion Gap (3-11) BUN (7-18) mg/dl Creatinine (0.6-1.4) mg/dl Est Cr Clr Drug Dosing ml/min Est GFR ( Amer) Est GFR (Non-Af Amer) BUN/Creatinine Ratio (10-20) Glucose (70-99) mg/dl Calcium (8.5-10.1) mg/dl Magnesium (1.8-2.4) mg/dl Troponin I (0-0.045) ng/ml Administered Medications Albuterol (Duoneb) 3 ml NEB QIDR [facility] Stop: 08/29/18 15:59 Last Admin: 07/30/18 15:09 Dose: 3 ml Documented by: [id number] Magnesium Sulfate/Dextrose (Magnesium Sulfate / D5w) 1 gm in 100 mls @ 100 mls/hr IV TODAY@1430,1530 [facility] Stop: 07/30/18 16:29 Last Admin: 07/30/18 14:36 Dose: 100 mls/hr Documented by: [id number] Discontinued Medications Albuterol (Duoneb) 12 ml NEB ONE ONE Stop: 07/30/18 10:17 Last Admin: 07/30/18 10:30 Dose: 12 ml Documented by: [id number] Cefepime HCl 2,000 mg/ Syringe 20 mls @ 5 mls/min IV TODAY@1430 [facility]; Protocol Stop: 07/30/18 14:33 Last Admin: 07/30/18 14:35 Dose: 5 mls/min Documented by: [id number] Methylprednisolone (Solumedrol) 125 mg IV NOW STA Stop: 07/30/18 10:17 Last Admin: 07/30/18 10:42 Dose: 125 mg Documented by: [id number] Imaging Data Radiologist's Impression: Radiology results as stated below per my review and the radiologist's interpretation: XR chest 1V portable CLINICAL HISTORY: Shortness of breath COMPARISON STUDY: 05/17/2018 FINDINGS: There are postsurgical changes of a midline sternotomy. There is mild elevation interstitium suggesting mild pulmonary vascular congestion/fluid ov erload. There is no lobar consolidation. Increased markings the left lung base remain unchanged the prior study and are felt to be secondary to a prominent fat pad and atelectatic change.[ IMPRESSION: 1. Radiographic evidence of mild pulmonary vascular congestion/fluid overload 2. No evidence of acute parenchymal consolidation Electronically signed by: Catarino Garcia M.D. 07/30/2018 10:32 AM Discharge Plan Visit Data *Final* Discharge Date/Time: 07/30/18 13:15 Chief Complaint: Shortness of Breath/Dyspnea Stated Complaint: SOB, CONGESTION ED Provider: Fredi Franco Discharge Problem: Acute exacerbation of chronic obstructive pulmonary disease (COPD) Patient Disposition: Admitted As Inpatient Discharge Instructions Interventions: ED Discharge Assessment Last Done: 07/30/18 13:15 The scribe's documentation has been prepared under my direction and personally reviewed by me in its entirety. I confirm that the note above accurately ref lects all work, treatment, procedures, and medical decision making performed by me.
[2018-07-30] MEDS: TAMSULOSIN HCL 0.4 MG CAP PO SCH (15:45)
[2018-07-30 15:47] LABS: Influenza B virus by PCR Neg for Influ B (Neg)
[2018-07-30] MEDS ORDERED: WARFARIN SOD 2.5 MG TAB PO SCH (16:00)
[2018-07-30] MEDS: methylPREDNISolone 40 MG in SYRINGE 0 ML IV SCH (19:32)
[2018-07-30] MEDS: OSELTAMIVIR PHOSPHATE SUSP 30 MG/5 ML UDP PO SCH (19:32)
[2018-07-30] MEDS: METOPROLOL TARTRATE 25 MG TAB PO SCH (21:19)
[2018-07-30] MEDS: DOCUSATE SODIUM 100 MG CAP PO SCH (21:19)
[2018-07-30] MEDS: LATANOPROST 0.005% OP SOLN 2.5 ML BTL OPB SCH (21:39)
[2018-07-31] MEDS: CEFEPIME 2,000 MG in SYRINGE 7.5 ML IV SCH ×2 (02:23→14:23)
[2018-07-31] MEDS: methylPREDNISolone 40 MG in SYRINGE 0 ML IV SCH ×3 (02:39→20:34)
[2018-07-31 06:19] LABS: Hematocrit (blood only) 38.1 % (42-52); Hemoglobin 12.8 g/dL (14.0-18.0); Mean Corpuscular Hgb Conc 33.6 g/dL (32-36); Mean Corpuscular Volume 89.6 fL (80-100); Mean Platelet Volume 9.5 fL (7.4-10.4); Platelet Count 228 K/uL (130-400); RDW Coefficient of Variation 13.5 % (11.5-14.5); RDW Standard Deviation 44.5 fL (36.4-46.3); Red Blood Count 4.25 M/uL (4.7-6.1); White Blood Count 10.75 K/uL (4.8-10.8)
[2018-07-31 06:43] LABS: INR 3.5 (0.9-1.1)
[2018-07-31 06:51] LABS: BUN Creatinine Ratio 23.1 (10-20); Calcium 9.2 mg/dl (8.5-10.1); Creatinine Clr Calc Pharmacy 41.7 ml/min; Est GFR (African American) 59.5; Est GFR (Non-African American) 51.3; Magnesium 2.6 mg/dl (1.8-2.4); Potassium 4.5 mmol/L (3.5-5.1)
[2018-07-31] MEDS: ALBUT/IPRATROP 3MG/0.5MG NEB 3 ML VIAL NEB SCH ×7 (07:12→23:21)
[2018-07-31] MEDS: FUROSEMIDE 40 MG TAB PO SCH (07:34)
[2018-07-31] MEDS: ATORVASTATIN 20 MG TAB PO SCH (07:34)
[2018-07-31] MEDS: METOPROLOL TARTRATE 25 MG TAB PO SCH ×2 (07:34→20:30)
[2018-07-31] MEDS: PANTOprazole 40 MG TAB PO SCH (07:35)
[2018-07-31] MEDS: DOCUSATE SODIUM 100 MG CAP PO SCH ×2 (07:35→20:34)
[2018-07-31] MEDS: ASPIRIN 81 MG ECTAB PO SCH (07:35)
[2018-07-31] MEDS: OSELTAMIVIR PHOSPHATE SUSP 30 MG/5 ML UDP PO SCH ×2 (07:35→20:37)
[2018-07-31] MEDS: LEVOTHYROXINE SODIUM 112 MCG TABLET PO SCH (07:35)
[2018-07-31] MEDS: POLYETHYLENE (MIRALAX) 17 GM PACK PO SCH (07:36)
[2018-07-31] MEDS ORDERED: predniSONE 5 MG TAB PO SCH (09:00)
--- NOTE | 2018-07-31 12:43 | Hospitalist Progress Note ---
Date of Service July 31, 2018 Assessment & Plan (1) Acute respiratory failure: Secondary to COPD exacerbation/ Influenza A Recent failure of outpatient antibiotic and steroid regimens times two. -S/P BIPAP - Off it now, on 2 L oxygen -Duonebs QID . Tachycardia likely secondary to Nebs- improved -Cont IV Solumedrol 40 mg q 8 Hours --> Change to q 12 hour today and tomorrow PO -IV Cefepime on admission due to advanced COPD and failure of outpatient regimen. If continues to be afrebrile, consider changing to PO antibx tomorrow -Follow up sputum cx- not collected now -CXR reviewed- Mild CHF but no pneumonia -Follows up with pulm outpatient. If no improvement, consider consult (2) COPD exacerbation: as above. (3) Influenza A: -Continue with Evette flu- Day 05/22 (4) Permanent atrial fibrillation: -On Metoprolol -On coumadin. Hold today for INR 3.5 (5) Chronic diastolic heart failure: Euvolemic, cont daily PO Lasix per home regimen. CXR- Mild pulm congestion with no pneumonia (6) HTN (hypertension): Stable (7) Hypothyroid: Cont Synthroid per home regimen. (8) CKD (chronic kidney disease) stage 3, GFR 30-59 ml/min: At baseline. Avoid renally toxic substances and renally dose meds as appropriate. (9) Hypomagnesemia: Resolved (10) S/P aortic valve replacement with bioprosthetic valve: (11) DVT prophylaxis: Warfarin DNR Dispo- Continue with PCU monitoring. Medical mx in progress Subjective Patient is feeling better today. Still has shortness of breath, generalized weakness, fatigue. Does have cough, not able to bring up sputum. No chest pain, fever, chills Telemetry monitorsinus tachycardia with heart rate in 110s Physical Exam Vital Signs (Past 24 Hours): Last Vital Signs Temp 36.3 C L 07/31/18 11:20 Pulse 112 H 07/31/18 11:20 Resp 24 07/31/18 11:20 BP 110/69 07/31/18 11:20 Pulse Ox 96 07/31/18 11:20 Constitutional: WD/WN, vitals as above no acute distress Respiratory: Auscultation: + diminished lung sounds and + wheezes; no crackles Cardiovascular: RRR, no murmur, no edema Extremities: no edema Gastrointestinal (Abdomen): Inspection/Auscultation: normal bowel sounds Percussion/Palpation: abdomen soft; no guarding and abdomen not rigid
[2018-07-31] MEDS ORDERED: WARFARIN SOD 2.5 MG TAB PO SCH (16:00)
[2018-07-31] MEDS: TAMSULOSIN HCL 0.4 MG CAP PO SCH (16:19)
[2018-07-31] MEDS ORDERED: LORazepam 0.5 MG TAB PO STA (19:31)
[2018-07-31] MEDS: LATANOPROST 0.005% OP SOLN 2.5 ML BTL OPB SCH (20:29)
[2018-08-01] MEDS: CEFEPIME 2,000 MG in SYRINGE 7.5 ML IV SCH (01:59)
[2018-08-01] MEDS: ALBUT/IPRATROP 3MG/0.5MG NEB 3 ML VIAL NEB SCH ×4 (02:04→13:31)
[2018-08-01 06:13] LABS: Hemoglobin 13.9 g/dL (14.0-18.0); Mean Corpuscular Hgb Conc 33.1 g/dL (32-36); Mean Corpuscular Volume 92.3 fL (80-100); Mean Platelet Volume 9.2 fL (7.4-10.4); Platelet Count 238 K/uL (130-400); RDW Coefficient of Variation 13.6 % (11.5-14.5); RDW Standard Deviation 45.8 fL (36.4-46.3); Red Blood Count 4.55 M/uL (4.7-6.1)
[2018-08-01 06:30] LABS: INR 2.5 (0.9-1.1); Prothrombin Time 23.7 Seconds (9.0-12.0)
[2018-08-01 06:35] LABS: BUN Creatinine Ratio 19.5 (10-20); Calcium 9.6 mg/dl (8.5-10.1); Creatinine Clr Calc Pharmacy 33.8 ml/min; Est GFR (African American) 45.9; Est GFR (Non-African American) 39.6; Potassium 4.7 mmol/L (3.5-5.1)
[2018-08-01] MEDS: PANTOprazole 40 MG TAB PO SCH (08:10)
[2018-08-01] MEDS: ATORVASTATIN 20 MG TAB PO SCH (08:11)
[2018-08-01] MEDS: LEVOTHYROXINE SODIUM 112 MCG TABLET PO SCH (08:11)
[2018-08-01] MEDS: METOPROLOL TARTRATE 25 MG TAB PO SCH ×2 (08:11→20:36)
[2018-08-01] MEDS: FUROSEMIDE 40 MG TAB PO SCH (08:12)
[2018-08-01] MEDS: ASPIRIN 81 MG ECTAB PO SCH (08:12)
[2018-08-01] MEDS: OSELTAMIVIR PHOSPHATE SUSP 30 MG/5 ML UDP PO SCH ×2 (08:13→20:37)
[2018-08-01] MEDS: DOCUSATE SODIUM 100 MG CAP PO SCH ×2 (08:24→20:36)
[2018-08-01] MEDS: POLYETHYLENE (MIRALAX) 17 GM PACK PO SCH (08:25)
[2018-08-01] MEDS: methylPREDNISolone 40 MG in SYRINGE 0 ML IV SCH ×2 (08:25→20:38)
[2018-08-01] MEDS: TAMSULOSIN HCL 0.4 MG CAP PO SCH (15:46)
[2018-08-01] MEDS: LEVALBUTEROL 1.25MG/0.5ML NEB NEB SCH ×3 (15:54→23:12)
[2018-08-01] MEDS ORDERED: WARFARIN SOD 5 MG TAB PO SCH (16:00)
--- NOTE | 2018-08-01 16:16 | Hospitalist Progress Note ---
Date of Service August 01, 2018 Assessment & Plan (1) Acute renal failure superimposed on stage 3 chronic kidney disease: Creatinine elevated from baseline, possible secondary dehydration, Order to hold Lasix, follow PRP, avoid NSAIDs, contrast studies (2) Acute respiratory failure: Presented with hypoxia, required BiPAP, Secondary to COPD exacerbation/ Influenza A Respiratory status improved to baseline on 2 L oxygen via nasal cannula chronic -We will DC DuoNeb, causing a tachycardia Continue with Xopenex scheduled 4 times daily, every 2 hours as needed -Cont IV Solumedrol 40 mg q 8 Hours -patient still have wheeze Will change antibiotic to p.o. doxycycline, complete total 5 days course - -CXR reviewed- Mild CHF but no pneumonia - (3) COPD exacerbation: as above. (4) Influenza A: -Continue with Evette flu- Day 06/19 (5) Permanent atrial fibrillation: -On Metoprolol -On coumadin. INR 2.5 today, Coumadin rate resumed on a lower dose, Daily PT/INR (6) Chronic diastolic heart failure: Euvolemic, Will hold Lasix today for acute renal failure CXR- Mild pulm congestion with no pneumonia (7) HTN (hypertension): Stable (8) Hypothyroid: Cont Synthroid per home regimen. (9) CKD (chronic kidney disease) stage 3, GFR 30-59 ml/min: Creatinine elevated from baseline, acute renal failure, possible secondary to dehydration, poor p.o. intake Hold Lasix, repeat PRP in a.m. Avoid NSAIDs, contrast studies (10) Hypomagnesemia: Resolved (11) S/P aortic valve replacement with bioprosthetic valve: (12) DVT prophylaxis: Warfarin DNR Dispo- Continue with PCU monitoring. Medical mx in progress Patient lives at home, and very supportive family members, son and [id number] PT OT evaluation prior to discharge home Subjective No complaint of shortness of breath, much improved today has nonproductive c ough, afebrile 2 L oxygen via nasal cannula, patient's baseline Denies of any dyspnea on exertion Physical Exam Constitutional: WD/WN, vitals as above no acute distress Eyes: PERRL, conjunctivae normal, anicteric sclerae ENMT: external ear and nose normal, oropharynx normal Neck: trachea midline, no thyromegaly Respiratory: Auscultation: + diminished lung sounds and + wheezes; no crackles Cardiovascular: RRR, no murmur, no edema Extremities: no edema Gastrointestinal (Abdomen): Inspection/Auscultation: normal bowel sounds Percussion/Palpation: abdomen soft; no guarding and abdomen not rigid Skin: no rashes, warm and dry Neurologic: PERRL, EOMI, accommodation nl, no face palsy, no dysarthria Psychiatric: A+Ox3, euthymic affect Results & Data Vital Signs (Past 12 Hours) Vital Signs Temp Pulse Resp BP Pulse Ox 08/01/18 15:55 112 H 18 08/01/18 14:54 36.4 C L 112 H 24 158/75 H 97 08/01/18 13:31 110 H 18 98 08/01/18 10:58 36.6 C 108 H 28 H 170/79 H 98 08/01/18 10:15 79 18 95 08/01/18 07:51 36.6 C 108 H 20 155/76 H 100 08/01/18 07:04 99 H 18 98 (1) Acute respiratory failure Respiratory failure complication: hypoxia Qualified Code(s): J96.01 - Acute respiratory failure with hypoxia (2) HTN (hypertension) Hypertension type: unspecified Qualified Code(s): I10 - Essential (primary) hypertension (3) Hypothyroid Hypothyroidism type: unspecified Qualified Code(s): E03.9 - Hypothyroidism, unspecified (4) Acute renal failure superimposed on stage 3 chronic kidney disease Acute renal failure type: with acute tubular necrosis Qualified Code(s): N17.0 - Acute kidney failure with tubular necrosis; N18.3 - Chronic kidney disease, stage 3 (moderate)
[2018-08-01] MEDS: WARFARIN SOD 2.5 MG TAB PO SCH (16:42)
[2018-08-01] MEDS: DOXYCYCLINE HYCLATE 100 MG CAP PO SCH (20:36)
[2018-08-01] MEDS: LATANOPROST 0.005% OP SOLN 2.5 ML BTL OPB SCH (20:38)
[2018-08-01] MEDS ORDERED: CEFEPIME 2,000 MG in SYRINGE 7.5 ML IV SCH (21:00)
[2018-08-02] MEDS: LEVALBUTEROL 1.25MG/0.5ML NEB NEB SCH ×5 (03:24→19:47)
[2018-08-02] MEDS: LEVOTHYROXINE SODIUM 112 MCG TABLET PO SCH (06:14)
[2018-08-02 06:31] LABS: BUN Creatinine Ratio 26.3 (10-20); Calcium 9.7 mg/dl (8.5-10.1); Creatinine Clr Calc Pharmacy 38.8 ml/min; Est GFR (African American) 54.2; Est GFR (Non-African American) 46.8; Potassium 4.6 mmol/L (3.5-5.1)
[2018-08-02 06:52] LABS: INR 2.1 (0.9-1.1); Prothrombin Time 20.8 Seconds (9.0-12.0)
[2018-08-02] MEDS: ASPIRIN 81 MG ECTAB PO SCH (08:08)
[2018-08-02] MEDS: PANTOprazole 40 MG TAB PO SCH (08:08)
[2018-08-02] MEDS: ATORVASTATIN 20 MG TAB PO SCH (08:08)
[2018-08-02] MEDS: METOPROLOL TARTRATE 25 MG TAB PO SCH ×2 (08:08→21:03)
[2018-08-02] MEDS: DOXYCYCLINE HYCLATE 100 MG CAP PO SCH ×2 (08:08→21:02)
[2018-08-02] MEDS: methylPREDNISolone 40 MG in SYRINGE 0 ML IV SCH (08:09)
[2018-08-02] MEDS: DOCUSATE SODIUM 100 MG CAP PO SCH ×2 (08:15→21:02)
[2018-08-02] MEDS: POLYETHYLENE (MIRALAX) 17 GM PACK PO SCH (08:15)
[2018-08-02] MEDS: OSELTAMIVIR PHOSPHATE SUSP 30 MG/5 ML UDP PO SCH ×2 (09:57→21:04)
--- NOTE | 2018-08-02 15:42 | Hospitalist Progress Note ---
Date of Service August 02, 2018 Assessment & Plan (1) Acute renal failure superimposed on stage 3 chronic kidney disease: Resolved, creatinine at baseline, Lasix resumed Creatinine was elevated from baseline, possible secondary dehydration, (2) Acute respiratory failure: Resolved, respiratory status improved to baseline Presented with hypoxia, required BiPAP, Secondary to COPD exacerbation/ Influenza A Respiratory status improved to baseline on 2 L oxygen via nasal cannula chronic - Neb changed Xopenex scheduled 4 times daily, every 2 hours as needed We will DC IV Solumedrol 40 mg q 8 Hours - Charted on p.o. prednisone Will change antibiotic to p.o. doxycycline, complete total 5 days course - -CXR reviewed- Mild CHF but no pneumonia - (3) COPD exacerbation: as above. Improved, respiratory status is approximate baseline (4) Influenza A: -Continue with Evette flu- Day / (5) Permanent atrial fibrillation: -On Metoprolol -On coumadin. (6) Chronic diastolic heart failure: Euvolemic, Lasix resumed as renal function improved to baseline CXR- Mild pulm congestion with no pneumonia (7) HTN (hypertension): Stable (8) Hypothyroid: Cont Synthroid per home regimen. (9) CKD (chronic kidney disease) stage 3, GFR 30-59 ml/min: Creatinine improved to baseline, Lasix resumed Avoid NSAIDs, contrast studies (10) Hypomagnesemia: Resolved (11) S/P aortic valve replacement with bioprosthetic valve: (12) DVT prophylaxis: Warfarin DNR Dispo- Continue with PCU monitoring. Patient lives at home, and very supportive family members, son and [id number] PT OT evaluation appreciated Plan for possible discharge home with home health home PT Subjective No complaint of cough, no audible wheeze, very comfortable sitting up in chair, feels much better than yesterday, energy has improved Walked with physical therapy Physical Exam Constitutional: WD/WN, vitals as above no acute distress Eyes: PERRL, conjunctivae normal, anicteric sclerae ENMT: external ear and nose normal, oropharynx normal Neck: trachea midline, no thyromegaly Respiratory: Auscultation: + diminished lung sounds Improved auscultation from prior, no wheeze, no rales noted Cardiovascular: RRR, no murmur, no edema Extremities: no edema Gastrointestinal (Abdomen): Inspection/Auscultation: normal bowel sounds Percussion/Palpation: abdomen soft; no guarding Skin: no rashes, warm and dry Neurologic: PERRL, EOMI, accommodation nl, no face palsy, no dysarthria Psychiatric: A+Ox3, euthymic affect Results & Data Vital Signs (Past 12 Hours) Vital Signs Temp Pulse Resp BP BP Pulse Ox 08/02/18 15:04 75 20 95 08/02/18 11:23 36.8 C 79 28 H 160/79 H 98 08/02/18 07:16 89 18 100 08/02/18 07:00 36.8 C 98 H 21 166/78 H 100 08/02/18 04:20 36.3 C L 114 H 22 153/66 H 98 (1) Acute respiratory failure Respiratory failure complication: hypoxia Qualified Code(s): J96.01 - Acute respiratory failure with hypoxia (2) Hypothyroid Hypothyroidism type: unspecified Qualified Code(s): E03.9 - Hypothyroidism, unspecified (3) Acute renal failure superimposed on stage 3 chronic kidney disease Acute renal failure type: with acute tubular necrosis Qualified Code(s): N17.0 - Acute kidney failure with tubular necrosis; N18.3 - Chronic kidney disease, stage 3 (moderate) (4) HTN (hypertension) Hypertension type: unspecified Qualified Code(s): I10 - Essential (primary) hypertension
[2018-08-02] MEDS: predniSONE 20 MG TAB PO SCH (17:19)
[2018-08-02] MEDS: TAMSULOSIN HCL 0.4 MG CAP PO SCH (17:20)
[2018-08-02] MEDS: WARFARIN SOD 2.5 MG TAB PO SCH (17:20)
[2018-08-02] MEDS: LATANOPROST 0.005% OP SOLN 2.5 ML BTL OPB SCH (21:04)
[2018-08-02] MEDS: LEVALBUTEROL HCL 1.25 MG/3 ML NEB NEB SCH (23:07)
[2018-08-03] MEDS: LEVALBUTEROL HCL 1.25 MG/3 ML NEB NEB SCH ×4 (03:02→15:31)
[2018-08-03] MEDS: LEVOTHYROXINE SODIUM 112 MCG TABLET PO SCH (06:02)
[2018-08-03 06:41] LABS: Calcium 9.4 mg/dl (8.5-10.1); Est GFR (African American) 56.2; Est GFR (Non-African American) 48.5; Potassium 4.4 mmol/L (3.5-5.1)
[2018-08-03] MEDS: POLYETHYLENE (MIRALAX) 17 GM PACK PO SCH (08:10)
[2018-08-03] MEDS: DOCUSATE SODIUM 100 MG CAP PO SCH (08:10)
[2018-08-03] MEDS: ASPIRIN 81 MG ECTAB PO SCH (08:11)
[2018-08-03] MEDS: ATORVASTATIN 20 MG TAB PO SCH (08:11)
[2018-08-03] MEDS: PANTOprazole 40 MG TAB PO SCH (08:11)
[2018-08-03] MEDS: METOPROLOL TARTRATE 25 MG TAB PO SCH (08:11)
[2018-08-03] MEDS: FUROSEMIDE 40 MG TAB PO SCH (08:12)
[2018-08-03] MEDS: DOXYCYCLINE HYCLATE 100 MG CAP PO SCH (08:12)
[2018-08-03] MEDS: OSELTAMIVIR PHOSPHATE SUSP 30 MG/5 ML UDP PO SCH (08:14)
[2018-08-03] MEDS ORDERED: FLUTICASONE/UMECLIDIN/VILANTER INH SCH (09:00)
[2018-08-03] MEDS: predniSONE 20 MG TAB PO SCH (11:00)
[2018-08-03] MEDS: WARFARIN SOD 2.5 MG TAB PO SCH (16:13)
[2018-08-03] MEDS: TAMSULOSIN HCL 0.4 MG CAP PO SCH (16:13)
--- NOTE | 2018-08-07 07:21 | Discharge Summary ---
Date of Service August 07, 2018 Admission HPI Per Admitting Provider 88-year-old male with history of chronic hypoxemic respiratory failure secondary to COPD on 2 L home oxygen continuously presents to the ER with persistent shortness of breath, wheezing and coughing. His symptoms have persisted for at least the last 2 weeks. He did have a [id number] who was sick with whom he lives. She was sick approximately 1 week before he became ill with symptoms. He has failed outpatient antibiotics including Z-Bhavik and doxycycline as well as various prednisone tapers. He does take chronic daily prednisone at 5 mg daily. He does have a history of diastolic heart failure and is on daily Lasix. He participates in daily weights Via [employer] and weight has not fluctuated up or down recently. He was given 1 dose of Lasix last week that was in addition to his typical 40 mg daily, however, beyond that additional Lasix has been not been needed. He denies any chest pain, fevers, chills. He reports initially 2 weeks ago his symptoms included nasal congestion and sore throat but these have dissipated. He denies any nasal congestion or other upper airway congestion at this time. He otherwise denies any GI side effects including nausea, vomiting, diarrhea, upset stomach. He denies any blood in his stool. He denies any swelling of his legs. Notably he was given Solu-Medrol 125 mg IV in the ER in addition to an hour-long albuterol nebulizer. As a result his heart rate is in the 120s and he has chronic A. fib. As time progressed in the ER he became more tachypneic and required BiPAP. He is comfortable resting on 8/4 with 30% FiO2 at this time. Son is at bedside and corroborated exam. He lives with the son. The patient does not smoke currently but is a former smoker. He does see a addictions counselor assistant with [facility] regularly. Principal Diagnosis INFLUENZA A/COPD EXACERBATION Discharge Exam Constitutional WD/WN, vitals as above no acute distress Eyes PERRL, conjunctivae normal, anicteric sclerae ENMT external ear and nose normal, oropharynx normal Neck trachea midline, no thyromegaly Respiratory Auscultation: + diminished lung sounds Cardiovascular RRR, no murmur, no edema Extremities: no edema Gastrointestinal (Abdomen) Inspection/Auscultation: normal bowel sounds Percussion/Palpation: abdomen soft; no guarding Skin no rashes, warm and dry Neurologic PERRL, EOMI, accommodation nl, no face palsy, no dysarthria Psychiatric A+Ox3, euthymic affect Discharge Data Allergies Allergy/AdvReac Type Severity Reaction Status Date / Time shellfish derived Allergy Severe ANAPHYLAXIS Verified 07/30/18 11:06 lisinopril Allergy Unknown DROPS Unverified 07/30/18 11:06 BLOOD PRESSURE TO LOW, shrimp Allergy Unknown ANAPHYLAXIS Unverified 07/30/18 11:06 Consultations 07/30/18 11:47 ED Decision to Admit Stat 07/30/18 14:09 Consult Case Management - Discharge Planning Routine Hospital Course (1) Acute renal failure superimposed on stage 3 chronic kidney disease: Resolved, creatinine at baseline, Lasix resumed on admission pt was dehydrated due to infection /influenza A presented with elevated Cr pt was treated with IV fluid renal function improved to baseline pt is asked to avoid NSAID's (2) Acute respiratory failure: Resolved, respiratory status improved to baseline Presented with hypoxia, required BiPAP, Secondary to COPD exacerbation/ Influenza A Respiratory status improved to baseline on 2 L oxygen via nasal cannula chronic - IV solu Medrol D/juani started in on p.o. prednisone changed antibiotic to p.o. doxycycline, complete total 5 days course - -CXR reviewed- Mild CHF but no pneumonia stable to be discharged home today has good family support pt and his -lives with their son and daughter in law -who are the primary care givers spoke with son updated regarding pt's status feels comfortable for pt to be dischargedhome - (3) COPD exacerbation: as above. Improved, respiratory status is approximate baseline (4) Influenza A: -Continue with Evette flu- Day 4/5 prescription sent for 1 more day supply (5) Permanent atrial fibrillation: -On Metoprolol -On coumadin. (6) Chronic diastolic heart failure: Euvolemic, Lasix resumed as renal function improved to baseline CXR- Mild pulm congestion with no pneumonia (7) HTN (hypertension): Stable (8) Hypothyroid: Cont Synthroid per home regimen. (9) CKD (chronic kidney disease) stage 3, GFR 30-59 ml/min: Creatinine improved to baseline, Lasix resumed Avoid NSAIDs, contrast studies (10) Hypomagnesemia: Resolved (11) S/P aortic valve replacement with bioprosthetic valve: (12) DVT prophylaxis: Warfarin DNR DISPOSITION ; Patient lives at home, and very supportive family members, son and [id number] PT OT evaluation appreciated-stable to return to home pt is discharged home with home health home PT Total Time Total Time Spent Total Time Spent (In Minutes): approx 40 mins Total Time Includes: Examination of the Patient, Discharge Planning, Medication Reconciliation and Communication With Other Providers Discharge Plan Discharge Items Patient Disposition: Home - Self-Care Reason For Visit: SHORNESS OF BREATH Discharge Diagnosis: INFLUENZA A /COPD EXACERBATION Discharge Goals: Decrease discomfort Activity: Resume your previous activity Non-emergency contact: Primary Care Provider Call non-emergency contact if: you have any medication questions Follow-up/Referrals: Taj Rios MD [Primary Care Provider] - 08/08/18 10:45 am (HOSPITAL FOLLOW UP WITH DR ZEB FUENTES) Diet: Heart Healthy Addtl Provider Instructions: HOSPITAL FOLLOW UP WITH DR ZEB FUENTES ON 08/08/2018 DR RIOS'S SCHEDULE IS FULL Prescriptions: New prednisone 10 mg tablet See Rx Instructions .ROUTE .COMPLEX Qty: 20 RF: 0 Continued furosemide [Lasix] 40 mg tablet 40 mg PO DAILY PRN (Reason: WEIGHT GAIN) RF: 0 furosemide [Lasix] 40 mg tablet 40 mg PO QAM RF: 0 latanoprost [Xalatan] 0.005 % drops 1 drp OPB HS RF: 0 atorvastatin [Lipitor] 20 mg tablet 20 mg PO QAM RF: 0 prednisone [Deltasone] 20 mg tablet 20 mg PO UD RF: 0 prednisone 5 mg tablet 5 mg PO UD RF: 0 aspirin [Aspir-Low] 81 mg Tablet,Delayed Release (Dr/Ec) 81 mg PO QAM RF: 0 tamsulosin 0.4 mg capsule 0.4 mg PO QDD RF: 0 ferrous sulfate 325 mg (65 mg iron) Tablet 325 mg PO QAM RF: 0 omeprazole 20 mg capsule,delayed release(DR/EC) 20 mg PO QAM RF: 0 levalbuterol HCl [Xopenex] 1.25 mg/3 mL solution for nebulization 1 dose Inhalation UD PRN (Reason: Shortness Of Breath) RF: 0 albuterol sulfate [Ventolin HFA] 90 mcg/actuation Hfa Aerosol Inhaler 2 puff INHALATION Q4 PRN (Reason: Wheezing) RF: 0 levothyroxine [Synthroid] 112 mcg tablet 112 mcg PO QAM RF: 0 metoprolol tartrate 25 mg Tablet 25 mg PO BID RF: 0 [place] 1 tab PO QDL RF: 0 warfarin [Coumadin] 5 mg tablet 5 mg PO MOWEFR@1600 RF: 0 polyethylene glycol 3350 [Miralax] 17 gram Powder In Packet 17 g PO QAM RF: 0 cyanocobalamin (vitamin B-12) [Vitamin B-12] 1,000 mcg Tablet 1,000 mcg PO QDL RF: 0 docusate sodium [Colace] 100 mg Capsule 100 mg PO BID RF: 0 cholecalciferol (vitamin D3) [Vitamin D3] 1,000 unit Capsule PO QDL RF: 0 Trelegy Ellipta 100-62.5-25 mcg blister with device 1 puff inhalation QAM RF: 0 warfarin 2.5 mg Tablet 2.5 mg PO SUTUTHSA@1600 RF: 0 Discontinued doxycycline hyclate 100 mg capsule 100 mg PO BID RF: 0 Stand-Alone Forms: [facility] [address]/Other Patient Handouts: Flu Discharge Orders: Discharge Order (Routine); Ordered 08/03/18 Ordered By: Kimberly Celis Admission Data Admit Date/Time: 07/30/18 12:22 Attending Provider: Kimberly Celis Admit Provider: Ashlee Montenegro Primary Care Provider: Taj Rios Service: Telemetry Other Interventions: Discharge Summary Assessment (RN) Last Done: 08/03/18 17:08 DC Date/Time DO NOT enter until pt leaves facility: 08/03/18 17:44
== END 2018-08-03 17:44 | disposition home or self-care (01) | DRG 190 ==
LOC: ED 10:01 → 2S 12:22 → SUATTDRO 12:22 → 2S 13:15
DX: Z91.013 Allergy to seafood; Z79.82 Long term (current) use of aspirin; J96.21 Acute and chronic respiratory failure with hypoxia; E78.5 Hyperlipidemia, unspecified; Z86.73 Personal history of transient ischemic attack (TIA), and cerebral infarction without residual deficits; K21.9 Gastro-esophageal reflux disease without esophagitis; Z79.899 Other long term (current) drug therapy; Z95.2 Presence of prosthetic heart valve; Z88.8 Allergy status to other drugs, medicaments and biological substances; Z79.01 Long term (current) use of anticoagulants; Z66 Do not resuscitate; Z79.52 Long term (current) use of systemic steroids; I50.32 Chronic diastolic (congestive) heart failure; N18.3 Chronic kidney disease, stage 3 (moderate); Z87.891 Personal history of nicotine dependence; Z99.81 Dependence on supplemental oxygen; E03.9 Hypothyroidism, unspecified; Z79.51 Long term (current) use of inhaled steroids; N17.9 Acute kidney failure, unspecified; I48.2 Chronic atrial fibrillation; J10.1 Influenza due to other identified influenza virus with other respiratory manifestations; J44.1 Chronic obstructive pulmonary disease with (acute) exacerbation; E83.42 Hypomagnesemia; I13.0 Hypertensive heart and chronic kidney disease with heart failure and stage 1 through stage 4 chronic kidney disease, or unspecified chronic kidney disease

== ENCOUNTER 2019-01-19 03:05 | Inpatient (IN) ==
[2019-01-19 03:46] LABS: Basophils # (auto) 0.01 K/uL (0-0.2); Basophils % (auto) 0.1 %; Hematocrit (blood only) 38.6 % (42-52); Hemoglobin 12.8 g/dL (14.0-18.0); Immature Granulocytes # (auto) 0.01 K/uL (0.00-0.02); Immature Granulocytes % (auto) 0.1 %; Lymphocytes # (auto) 0.18 K/uL (1.2-3.4); Lymphocytes % (auto) 2.5 %; Mean Corpuscular Hemoglobin 29.9 pg (25-34); Mean Corpuscular Hgb Conc 33.2 g/dL (32-36); Mean Corpuscular Volume 90.2 fL (80-100); Mean Platelet Volume 9.3 fL (7.4-10.4); Monocytes # (auto) 0.04 K/uL (0.11-0.59); Monocytes % (auto) 0.6 %; Neutrophils % (auto) 96.7 %; Platelet Count 171 K/uL (130-400); RDW Coefficient of Variation 13.9 % (11.5-14.5); RDW Standard Deviation 45.7 fL (36.4-46.3); Red Blood Count 4.28 M/uL (4.7-6.1); White Blood Count 7.24 K/uL (4.8-10.8)
[2019-01-19 04:02] LABS: INR 2.2 (0.9-1.1); Partial Thromboplastin Time 25.9 Seconds (21.0-31.0); Prothrombin Time 21.6 Seconds (9.0-12.0)
[2019-01-19 04:04] LABS: Albumin Level 3.4 gm/dl (3.4-5.0); BUN Creatinine Ratio 17.8 (10-20); Calcium 8.8 mg/dl (8.5-10.1); Creatinine Clr Calc Pharmacy 29.2 ml/min; Est GFR (African American) 37.4; Est GFR (Non-African American) 32.3; Potassium 3.9 mmol/L (3.5-5.1)
[2019-01-19 04:14] LABS: Bilirubin,Total 0.6 mg/dl (0.2-1); Globulin 3.3 gm/dl (2.5-4.0); Total Protein 6.7 gm/dl (6.4-8.2); Troponin I 0.046 ng/ml (0-0.045)
--- NOTE | 2019-01-19 06:58 | XRay Report ---
XR chest 1V portable CLINICAL HISTORY: Sepsis COMPARISON STUDY: 07/30/2018 FINDINGS: There are postsurgical changes of a midline sternotomy. The heart remains enlarged. There i s stable interstitial thickening suggesting chronic pulmonary vascular congestion although chronic in terstitial lung disease could appear similar[there is no focal pulmonary consolidation. There are no significant pleural effusions. Underlying emphysema is suspected. IMPRESSION: Stable elevation of interstitium. Chronic mild pulmonary vascular congestion versus under lying interstitial lung disease. No evidence of lobar consolidation. Electronically signed by: Catarino Gracia M.D. 01/19/2019 6:57 AM
[2019-01-19] MEDS ORDERED: ALBUTEROL HFA 8 GM INHALER INH PRN (07:22)
[2019-01-19] MEDS ORDERED: ONDANSETRON INJ 2 MG/ML 2 ML VIAL IV PRN (07:22)
[2019-01-19] MEDS ORDERED: NITROGLYCERIN SL 0.4 MG/TAB TAB SL PRN (07:22)
[2019-01-19] MEDS ORDERED: LEVALBUTEROL HCL 1.25 MG/3 ML NEB INH PRN (07:22)
[2019-01-19] MEDS ORDERED: ACETAMINOPHEN 325 MG TAB PO PRN (07:22)
--- NOTE | 2019-01-19 07:25 | Emergency Department Note ---
Entered by Tawny Carroll acting as a scribe for Yoselin Langston DO History of Present Illness General Chief complaint: Abdominal Pain Stated complaint: ABDOMINAL PAIN/CHEST PAIN Time Seen by Provider: 01/19/19 03:14 Source: patient and family History of Present Illness Onset (ago): hour(s) 1 Location: chest Pain Consistency: + other (Episode) Quality: + other (Chest pain) Relieved By: + other (Nebulizer treatment) Associated symptoms: + chest pain, + fever/chills (Positive chills. Negative fever.), + nausea/vomiting and + shortness of breath; no loss of appetite Treatments prior to arrival: other (Nebulizer treatment) The patient is an 88 year old male presenting to the Emergency Department complaining of an episode of chest pain starting 1 hour ago. The patient reports that he woke up from his sleep with chills. He states that he was short of breath at this time. 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 He notes that he currently has no chest pain or nausea. 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 The patients family reports that he normally wears oxygen at home. They state that the patient has recently gained weight and took an extra Lasix 1 day ago for this. They note that the patient regularly takes Coumadin for A-fib. The patient denies loss of appetite. Home Medications Home Medications Medication Instructions Recorded Confirmed Type [place] 1 tab PO QDL 05/17/18 01/19/19 History albuterol sulfate [Ventolin HFA] 2 puff INHALATION Q4 PRN 05/17/18 01/19/19 History aspirin [Aspir-Low] 81 mg PO QAM 05/17/18 01/19/19 History atorvastatin [Lipitor] 20 mg PO QAM 05/17/18 01/19/19 History ferrous sulfate 325 mg PO QAM 05/17/18 01/19/19 History furosemide [Lasix] 40 mg PO DAILY PRN 05/17/18 01/19/19 History furosemide [Lasix] 40 mg PO QAM 05/17/18 01/19/19 History latanoprost [Xalatan] 1 drp OPB HS 05/17/18 01/19/19 History levalbuterol HCl [Xopenex] 1 dose INHALATION UD PRN 05/17/18 01/19/19 History levothyroxine [Synthroid] 112 mcg PO QAM 05/17/18 01/19/19 History metoprolol tartrate 25 mg PO BID 05/17/18 01/19/19 History omeprazole 20 mg PO QAM 05/17/18 01/19/19 History prednisone 5 mg PO DAILY 05/17/18 01/19/19 History tamsulosin 0.4 mg PO QDD 05/17/18 01/19/19 History warfarin [Coumadin] 5 mg PO 4XWK 05/17/18 01/19/19 History Trelegy Ellipta 1 puff INHALATION QAM 07/30/18 01/19/19 History docusate sodium [Colace] 100 mg PO BID 07/30/18 01/19/19 History polyethylene glycol 3350 [Miralax] 17 g PO QAM 07/30/18 01/19/19 History warfarin 2.5 mg PO 3XWK 07/30/18 01/19/19 History cetirizine 5 mg PO DAILY 01/19/19 01/19/19 History escitalopram oxalate [Lexapro] 5 mg PO DAILY 01/19/19 01/19/19 History fluticasone propionate [Flonase 2 spray INTRANASAL DAILY 01/19/19 01/19/19 History Allergy Relief] melatonin 5 mg PO HS 01/19/19 01/19/19 History ranitidine HCl [Zantac] 150 mg PO BID 01/19/19 01/19/19 History Allergies Allergy/AdvReac Type Severity Reaction Status Date / Time shellfish derived Allergy Severe ANAPHYLAXIS Verified 01/19/19 03:53 shrimp Allergy Severe ANAPHYLAXIS Verified 01/19/19 03:53 lisinopril Allergy Intermediate DROPS Verified 01/19/19 03:53 BLOOD PRESSURE TO LOW, Past Med/Surg History Medical History Permanent atrial fibrillation Chronic diastolic heart failure Hernia HTN (hypertension) (Chronic) COPD (chronic obstructive pulmonary disease) (Chronic) Hypothyroid (Chronic) Dyslipidemia (Chronic) GERD (gastroesophageal reflux disease) (Chronic) CKD (chronic kidney disease) stage 3, GFR 30-59 ml/min (Chronic) Sensorineural hearing loss (Chronic) TIA (transient ischemic attack) (Resolved) Cerebrovascular disease (Chronic) History of tobacco use (Chronic) "quit in 1982" Asthma (Chronic) Paroxysmal a-fib (Chronic) "postoperative" Bronchitis CHF (congestive heart failure) Respiratory failure, acute Surgical History History of CEA (carotid endarterectomy) "Right side" Heart valve replaced (Chronic) "aortic valve replacement 2013" On 01/26/15 18:57 Suzanne hCeek wrote "aortic valve replacement " History of intestinal surgery S/P aortic valve replacement with bioprosthetic valve Family History Sister Lung cancer Brother FH: stomach cancer Social History Preferred Language: Pashto Communication Ability: Effective Manager Hospitality Required: No Beliefs That Will Affect Care: None marital status: / Current Living Situation: Family Current Living Situation Comment: lives with son and DIL current occupational status: retired Feels Safe at Home: Yes Smoking Status: Former smoker Second Hand Exposure: No ; Hx Alcohol Use: No Hx Substance Use: No Review of Systems See HPI for pertinent positives & negatives. and A total of 10 systems reviewed and were otherwise negative Physical Exam Vital Signs Vital Signs - 24 hr 01/19/19 03:13 01/19/19 03:30 01/19/19 04:00 Temperature 37.9 C H Temperature Source Oral Sepsis Recent Fever Within 48 Hours No Sepsis New/Unexplained Change in Mental Status No Sepsis Action Taken by Nursing No Action Required Pulse Rate 121 H 123 H 99 H Pulse Rate from SpO2 Sensor 120 H 113 H Respiratory Rate 28 H 18 16 Respiratory Effort / Characteristics Spontaneous Labored Respiratory Depth Normal Blood Pressure 106/51 L 120/64 113/56 L Blood Pressure Mean 69 82 75 Pulse Oximetry 96 96 96 Oxygen Delivery Method Nasal Cannula Oxygen Flow Rate 4 01/19/19 04:03 01/19/19 04:30 01/19/19 05:00 Temperature Temperature Source Sepsis Recent Fever Within 48 Hours Sepsis New/Unexplained Change in Mental Status Sepsis Action Taken by Nursing Pulse Rate 99 H 102 H Pulse Rate from SpO2 Sensor 103 H 100 H Respiratory Rate 15 16 Respiratory Effort / Characteristics Respiratory Depth Blood Pressure 108/66 113/61 Blood Pressure Mean 80 78 Pulse Oximetry 97 97 Oxygen Delivery Method Nasal Cannula Nasal Cannula Nasal Cannula Oxygen Flow Rate 4 4 4 01/19/19 05:30 01/19/19 06:00 Temperature Temperature Source Sepsis Recent Fever Within 48 Hours Sepsis New/Unexplained Change in Mental Status Sepsis Action Taken by Nursing Pulse Rate 107 H 104 H Pulse Rate from SpO2 Sensor 105 H 106 H Respiratory Rate 18 20 Respiratory Effort / Characteristics Respiratory Depth Blood Pressure 92/54 L 98/61 L Blood Pressure Mean 66 73 Pulse Oximetry 97 98 Oxygen Delivery Method Nasal Cannula Nasal Cannula Oxygen Flow Rate 4 4 HEENT: Head - normocephalic and atraumatic Pupils are equal, round, and reactive to light. Extraocular eye muscles are intact, and sclera are anicteric. Nose - moist nasal mucosa without discharge. Mouth - moist buccal mucosa. Oropharynx is nonerythematous and there is no tonsillar exudate or edema noted. Neck: Supple; no JVD, nuchal rigidity, cervical lymphadenopathy, or auscultated bruits. Heart: Tachycardic rate and irregularly irregular rhythm. There is a normal S1 and S2 with no murmurs, clicks, or gallops appreciated. Lungs: Diminished breath sounds in all lung mariee. Abdomen: Soft, completely nontender, nondistended, with good bowel sounds. There are no palpable pulsatile masses or hepatosplenomegaly. There is no guarding, rigidity, or rebound noted. Extremities: No evidence of cyanosis, clubbing, or edema. There are easily palpable peripheral pulses. Skin: warm and dry with good turgor and no rashes. Course 0325: Past medical records reviewed. The patient was evaluated in room A4B. A complete history and physical exam was performed. Laboratory studies were drawn as above. A twelve-lead EKG was obtained as described above. The patient was observed on the gyn and pulse oximeter. He remained in atrial fibrillation with a rapid ventricular response. His heart rate eventually slo wed. He will have a chest x-ray. 0444: I reevaluated the patient at this time. His vital signs are stable. 0455: I discussed the patients case with Dr. Twila ceron. He will evaluate the patient for further management. Consultations Consultation #1: I discussed the patients case with Dr. Twila ceron. He will evaluate the patient for further management. Time: 04:55 Medical Decision Making Differential Diagnosis Differential diagnoses include recurrent SBO, cardiac ischemia, cardiac dysrhythmia and gastroenteritis amongst others. Medical Records Attestation: I reviewed the patient's medical records. Home Medications Current Medication List: was personally reviewed by me Laboratory Data Attestation: I reviewed the patient's lab results. Result diagrams: 01/19/19 03:32 01/19/19 03:32 Lab Results 01/19/19 01/19/19 01/19/19 Range/Units 03:32 03:32 03:32 WBC 7.24 (4.8-10.8) K/uL RBC 4.28 L (4.7-6.1) M/uL Hgb 12.8 L (14.0-18.0) g/dL Hct 38.6 L (42-52) % MCV 90.2 (80-100) fL MCH 29.9 (25-34) pg MCHC 33.2 (32-36) g/dL RDW Std Deviation 45.7 (36.4-46.3) fL RDW Coeff of Thierry 13.9 (11.5-14.5) % Plt Count 171 (130-400) K/uL MPV 9.3 (7.4-10.4) fL Immature Gran % (Auto) 0.1 % Neut % (Auto) 96.7 % Lymph % (Auto) 2.5 % Walsh % (Auto) 0.6 % Eos % (Auto) 0.0 % Baso % (Auto) 0.1 % Immature Gran # (Auto) 0.01 (0.00-0.02) K/uL Neut # (Auto) 7.00 H (1.4-6.5) K/uL Lymph # (Auto) 0.18 L (1.2-3.4) K/uL Walsh # (Auto) 0.04 L (0.11-0.59) K/uL Eos # (Auto) 0.00 (0-0.5) K/uL Baso # (Auto) 0.01 (0-0.2) K/uL PT 21.6 H (9.0-12.0) Seconds INR 2.2 H (0.9-1.1) APTT 25.9 (21.0-31.0) Seconds PTT Ratio 1.0 Sodium 141 (136-145) mmol/L Potassium 3.9 (3.5-5.1) mmol/L Chloride 102 (98-107) mmol/L Carbon Dioxide 30 (21-32) mmol/L Anion Gap 9.0 (3-11) BUN 33 H (7-18) mg/dl Creatinine 1.85 H (0.6-1.4) mg/dl Est Cr Clr Drug Dosing 29.2 ml/min Est GFR ( Amer) 37.4 Est GFR (Non-Af Amer) 32.3 BUN/Creatinine Ratio 17.8 (10-20) Glucose 100 H (70-99) mg/dl Lactate (0.4-2.0) mmol/L Calcium 8.8 (8.5-10.1) mg/dl Total Bilirubin 0.6 (0.2-1) mg/dl AST 60 H (15-37) U/L ALT 68 (12-78) U/L Alkaline Phosphatase 110 (45-117) U/L Troponin I 0.046 H* (0-0.045) ng/ml NT-Pro-B Natriuret Pep 2282 H (0-1800) pg/ml Total Protein 6.7 (6.4-8.2) gm/dl Albumin 3.4 (3.4-5.0) gm/dl Globulin 3.3 (2.5-4.0) gm/dl Albumin/Globulin Ratio 1.0 (0.9-2) 01/19/19 Range/Units 03:53 WBC (4.8-10.8) K/uL RBC (4.7-6.1) M/uL Hgb (14.0-18.0) g/dL Hct (42-52) % MCV (80-100) fL MCH (25-34) pg MCHC (32-36) g/dL RDW Std Deviation (36.4-46.3) fL RDW Coeff of Thierry (11.5-14.5) % Plt Count (130-400) K/uL MPV (7.4-10.4) fL Immature Gran % (Auto) % Neut % (Auto) % Lymph % (Auto) % Walsh % (Auto) % Eos % (Auto) % Baso % (Auto) % Immature Gran # (Auto) (0.00-0.02) K/uL Neut # (Auto) (1.4-6.5) K/uL Lymph # (Auto) (1.2-3.4) K/uL Walsh # (Auto) (0.11-0.59) K/uL Eos # (Auto) (0-0.5) K/uL Baso # (Auto) (0-0.2) K/uL PT (9.0-12.0) Seconds INR (0.9-1.1) APTT (21.0-31.0) Seconds PTT Ratio Sodium (136-145) mmol/L Potassium (3.5-5.1) mmol/L Chloride (98-107) mmol/L Carbon Dioxide (21-32) mmol/L Anion Gap (3-11) BUN (7-18) mg/dl Creatinine (0.6-1.4) mg/dl Est Cr Clr Drug Dosing ml/min Est GFR ( Amer) Est GFR (Non-Af Amer) BUN/Creatinine Ratio (10-20) Glucose (70-99) mg/dl Lactate 1.3 (0.4-2.0) mmol/L Calcium (8.5-10.1) mg/dl Total Bilirubin (0.2-1) mg/dl AST (15-37) U/L ALT (12-78) U/L Alkaline Phosphatase (45-117) U/L Troponin I (0-0.045) ng/ml NT-Pro-B Natriuret Pep (0-1800) pg/ml Total Protein (6.4-8.2) gm/dl Albumin (3.4-5.0) gm/dl Globulin (2.5-4.0) gm/dl Albumin/Globulin Ratio (0.9-2) Imaging Data My Impression: XR Chest 1V: Cardiomegaly. Mild to moderate CHF. ECG Data Attestation: I personally reviewed and interpreted this ECG as follows: Indication: chest pain Rate (beats per minute): 117 Rhythm: atrial fibrillation (with RVR) Findings: + PVC (Multiple PVCs); no acute ischemic change Comparison ECG Date: from (07/30/18) Change: the following changes noted (PVCs are new) Blood Pressure Blood Pressure Findings: Elevated blood pressure Blood Pressure Disposition: further management by hospitalist MDM Narrative The patient is an 88 year old male presenting to the Emergency Department complaining of an episode of chest pain starting 1 hour ago. Differential diagnoses include recurrent SBO, cardiac ischemia, cardiac dysrhythmia and gastroenteritis amongst others. The patient has a history of CHF. He awoke from sleep with significant chest pain, nausea, vomiting and diaphoresis. The patient's family state that he was pale. He does have an elevated troponin. He has a history of atrial fibrillation and is on Coumadin. The Coumadin is therapeutic at this time. The patient has elevated heart rate at times but it is currently less than 100. He complains of no abdominal pain while here in the emergency department. The patient's troponin is elevated compared to previous labs. I discussed the case with the hospitalist and they will evaluate for further management. Impression & Plan Non-ST elevation NJ (NSTEMI), CHF (congestive heart failure), VIDHI (acute kidney injury) Critical Care Time Critical Care Time: Yes Total Critical Care Time: 35 I have personally spent 35 minutes of critical care time in the direct management of this patient. This includes bedside care, interpretation of diagnostic studies, and testing, discussion with consultants, patient, and family members, and other required patient management activities. This 35 minutes is in excess of all separately billable procedures. Discharge Plan Visit Data Chief Complaint: Abdominal Pain Stated Complaint: ABDOMINAL PAIN/CHEST PAIN ED Provider: Yoselin Langston Discharge Problem: Non-ST elevation NJ (NSTEMI), CHF (congestive heart failure), VIDHI (acute kidney injury) Patient Disposition: Being Evaluated by Hospitalist Discharge Instructions Interventions: ED Discharge Assessment Last Done: 01/19/19 06:56 Discharge Problem: CHF (congestive heart failure) Qualifiers: Heart failure type: unspecified Heart failure chronicity: unspecified Qualified Code(s): I50.9 - Heart failure, unspecified The scribe's documentation has been prepared under my direction and personally reviewed by me in its entirety. I confirm that the note above accurately reflects all work, treatment, procedures, and medical decision making performed by me.
[2019-01-19] MEDS ORDERED: cefTRIAXone SODIUM 1,000 MG in DEXTROSE 5% 50 ML IV SCH (08:00)
[2019-01-19] MEDS ORDERED: INFLUENZA VACCINE HIGH DOSE 65+ 0.5 ML SYR IM ONE (08:15)
[2019-01-19] MEDS ORDERED: INFLUENZA ADMINISTRATION CHARGE ONE (08:15)
[2019-01-19] MEDS ORDERED: PERFLUTREN LIPID MICROSPHERE (DEFINITY) IV ONE (08:23)
[2019-01-19 08:34] LABS: BUN Creatinine Ratio 20.2 (10-20); Calcium 9.1 mg/dl (8.5-10.1); Creatinine Clr Calc Pharmacy 31.8 ml/min; Est GFR (African American) 41.7; Potassium 3.6 mmol/L (3.5-5.1)
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
[2019-01-19] MEDS: ASPIRIN 81 MG ECTAB PO SCH (09:06)
[2019-01-19] MEDS: CETIRIZINE HCL 10 MG TABLET PO SCH (09:06)
[2019-01-19] MEDS: ATORVASTATIN 20 MG TAB PO SCH (09:06)
[2019-01-19] MEDS: FERROUS SULFATE 325 MG TAB PO SCH (09:07)
[2019-01-19] MEDS: METOPROLOL TARTRATE 25 MG TAB PO SCH ×2 (09:07→21:05)
[2019-01-19] MEDS: DOCUSATE SODIUM 100 MG CAP PO SCH ×2 (09:07→21:05)
[2019-01-19] MEDS: PANTOprazole 40 MG TAB PO SCH (09:07)
[2019-01-19] MEDS: LEVOTHYROXINE SODIUM 112 MCG TABLET PO SCH (09:07)
[2019-01-19] MEDS: ESCITALOPRAM OXALATE 10 MG TAB PO SCH (09:07)
[2019-01-19] MEDS: POLYETHYLENE (MIRALAX) 17 GM PACK PO SCH (09:08)
[2019-01-19] MEDS: predniSONE 5 MG TAB PO SCH (09:08)
[2019-01-19] MEDS: FLUTICASONE PROPIONATE NA SPR 16 GM BTL SCH (09:08)
--- NOTE | 2019-01-19 10:06 | Hospitalist Progress Note ---
Date of Service January 19, 2019 Assessment & Plan (1) Non-ST elevation SD (NSTEMI): Acute onset chest pain, shortness of breath, vomiting. Currently resolved Get EKG Continue telemetry monitoring Trop increased from 0.04 to 0.44. Continue trending trop Discussed case with Dredge Pipeman. Will hold warfarin for now and monitor INR. INR is currently therapeutic and will take some time to come down. Will follow up final Cardiology recommendations Echo results noted. Continue aspirin and statin (2) Acute renal failure superimposed on stage 3 chronic kidney disease: Likely due to diuretics as patient reported he took some extra dose for leg swelling. Holding diuretics for now Monitor Cr (3) COPD (chronic obstructive pulmonary disease): Currently stable, not in exacerbation Chest xray did not show any focal opacities. No leukocytosis Unlikely to have pneumonia. Will discontinue ceftriaxone and monitor Continue home O2, nebs and meds for COPD (4) Chronic atrial fibrillation: Currently rate controlled Will hold warfarin as reported above Continue metoprolol (5) Chronic diastolic heart failure: Currently euvolemic on clinical exam BNP is 2282 ( was 1235 in 04/2018) Diuretic on hold due to VIDHI on CKD Echo results noted (6) Hypothyroid: Continue levothyroxine Subjective Patient seen and evaluated. Chest pain, shortness of breath, cough and nausea resolved at this time Denied any fevers. No longer feeling chilly. Review of Systems Review of Systems: All systems reviewed and unremarkable except for mentioned above. Physical Exam Physical Exam: General: Well nourished, well hydrated , average body habitus, no acute distress and not ill appearing Eyes: PERRL, conjunctivae normal, not pale, anicteric sclerae, EOM intact bilaterally ENMT: External ear and nose normal, oropharynx normal Neck: Normal visual inspection, no tracheal deviation, no swelling noted Respiratory: Normal respiratory effort, no respiratory distress, lungs clear to auscultation, no crackles and no wheezes Cardiovascular: Pulse is irregularly irregular, S1 S2. no pedal edema Gastrointestinal (Abdomen): Abdomen is not distended, surgical scars with 2 abdominal wall hernias around scars, soft, non-tender to palpation, no guarding, no palpable hepatosplenomegaly, normal bowel sounds Musculoskeletal: No cyanosis or clubbing, all extremities motor strength 5/5 Genitourinary: Skin: No rash noted on gross inspection, No ulcers noted Neurologic: Alert and oriented x 3, No focal weakness, sensation grossly intact Psychiatric: Alert and oriented x 3, euthymic affect Results & Data Vital Signs (Past 12 Hours) Vital Signs Temp Pulse Pulse Resp BP BP Pulse Ox 01/19/19 07:27 36.9 C 98 H 20 113/57 L 97 01/19/19 06:56 37.9 C H 01/19/19 06:48 37.9 C H 95 H 14 101/58 L 99 01/19/19 06:30 95 H 19 101/58 L 99 01/19/19 06:00 104 H 20 98/61 L 98 01/19/19 05:30 107 H 18 92/54 L 97 01/19/19 05:00 102 H 16 113/61 97 01/19/19 04:30 99 H 15 108/66 97 01/19/19 04:00 99 H 16 113/56 L 96 01/19/19 03:30 123 H 18 120/64 96 01/19/19 03:13 37.9 C H 121 H 28 H 106/51 L 96 Laboratory Results Laboratory Results - last 24 hr 01/19/19 01/19/19 01/19/19 03:32 03:32 03:32 WBC 7.24 RBC 4.28 L Hgb 12.8 L Hct 38.6 L MCV 90.2 MCH 29.9 MCHC 33.2 RDW Std Deviation 45.7 RDW Coeff of Thierry 13.9 Plt Count 171 MPV 9.3 Immature Gran % (Auto) 0.1 Neut % (Auto) 96.7 Lymph % (Auto) 2.5 [place] % (Auto) 0.6 Eos % (Auto) 0.0 Baso % (Auto) 0.1 Immature Gran # (Auto) 0.01 Neut # (Auto) 7.00 H Lymph # (Auto) 0.18 L [place] # (Auto) 0.04 L Eos # (Auto) 0.00 Baso # (Auto) 0.01 PT 21.6 H INR 2.2 H APTT 25.9 PTT Ratio 1.0 Sodium 141 Potassium 3.9 Chloride 102 Carbon Dioxide 30 Anion Gap 9.0 BUN 33 H Creatinine 1.85 H Est Cr Clr Drug Dosing 29.2 Est GFR ( Amer) 37.4 Est GFR (Non-Af Amer) 32.3 BUN/Creatinine Ratio 17.8 Glucose 100 H Lactate Calcium 8.8 Magnesium Total Bilirubin 0.6 AST 60 H ALT 68 Alkaline Phosphatase 110 Troponin I 0.046 H* NT-Pro-B Natriuret Pep 2282 H Total Protein 6.7 Albumin 3.4 Globulin 3.3 Albumin/Globulin Ratio 1.0 01/19/19 01/19/19 01/19/19 03:53 07:41 07:41 WBC RBC Hgb Hct MCV MCH MCHC RDW Std Deviation RDW Coeff of Thierry Plt Count MPV Immature Gran % (Auto) Neut % (Auto) Lymph % (Auto) [place] % (Auto) Eos % (Auto) Baso % (Auto) Immature Gran # (Auto) Neut # (Auto) Lymph # (Auto) [place] # (Auto) Eos # (Auto) Baso # (Auto) PT INR APTT PTT Ratio Sodium 138 Potassium 3.6 Chloride 103 Carbon Dioxide 29 Anion Gap 6.0 BUN 34 H Creatinine 1.69 H Est Cr Clr Drug Dosing 31.8 Est GFR ( Amer) 41.7 Est GFR (Non-Af Amer) 36.0 BUN/Creatinine Ratio 20.2 H Glucose 134 H Lactate 1.3 Calcium 9.1 Magnesium 2.0 Total Bilirubin AST ALT Alkaline Phosphatase Troponin I 0.443 H* NT-Pro-B Natriuret Pep Total Protein Albumin Globulin Albumin/Globulin Ratio (1) Acute renal failure superimposed on stage 3 chronic kidney disease Acute renal failure type: with acute tubular necrosis Qualified Code(s): N17. 0 - Acute kidney failure with tubular necrosis; N18.3 - Chronic kidney disease, stage 3 (moderate) (2) Hypothyroid Hypothyroidism type: unspecified Qualified Code(s): E03.9 - Hypothyroidism, unspecified
--- NOTE | 2019-01-19 13:18 | Cardiology Consultation ---
Date of Consultation January 19, 2019 Assessment & Plan (1) Non-ST elevation OR (NSTEMI): Patient presented with symptoms concerning for acute myocardial ischemia though multiple other factors contributing including acute on chronic diastolic heart failure, possible acute febrile illness. Initial troponins are elevated EKGs without acute evolution at this time. Echocardiogram demonstrates preserved LV systolic function. Patient is currently asymptomatic Plan is already ordered continue serial troponins. Will hold warfarin initially. Patient on therapy with aspirin, beta-kenney, statin. Will obtain records regarding past cardiovascular surgery and cardiac catheterization. Blood pressures are currently lower and in the past has been significantly elevated will need to follow closely for noncardiac concerns as well as above given low-grade fever and nausea presentation Patient would represent elevated risk cardiac cath/coronary intervention. Will further define plans as clinical course progresses (2) Chronic atrial fibrillation: (3) S/P aortic valve replacement with bioprosthetic valve: (4) Chronic diastolic heart failure: Current exam without significant volume overload however BNP mildly elevated on presentation. Chest x-ray with chronic interstitial changes mild vascular plethora (5) CKD (chronic kidney disease) stage 3, GFR 30-59 ml/min: History of Present Illness Reason for Consultation: Chest pressure pain Requesting Physician: Dr Beth Attending Physician: Marilin Beth MD History of Present Illness Patient is an 88-year-old male with very complex past constellation of medical and cardiac issues which include 1. Status post aortic valve replacement with [facility] trifecta bioprosthesis January 2014 [facility] without coronary bypass graft 2. Previously paroxysmal now chronic atrial fibrillation 3. Prior stroke January 2015 4. 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 Chronic obstructive lung disease, O2 and steroid dependent with past respiratory and right heart failure 6. CKD stage III, GFR 30-35 7. Large ventral hernias with past small bowel obstruction Patient presents this admission noting having to awaken from sleep last night with sensation of chills nausea followed by chest pressure nausea and a single episode of emesis. Patient felt dyspneic with the above complaints but dyspnea improved with trial use of nebulizer at home. He was noted to appear ill and pale by family and was brought to the emergency room for further evaluation. Symptoms had improved by presentation. He was mildly febrile on presentation. Patient notes have been taken additional furosemide due to increased lower extremity edema day prior. No recent change in exercise capacity. Has been wearing oxygen as prescribed. No changes in medications. Does have chronic low-grade cough without acute increase Denies any bleeding difficulties melena hematochezia dysuria hematuria. No current abdominal pain or discomfort. Large ventral hernia is reducible. Allergies Allergy/AdvReac Type Severity Reaction Status Date / Time shellfish derived Allergy Severe ANAPHYLAXIS Verified 01/19/19 03:53 shrimp Allergy Severe ANAPHYLAXIS Verified 01/19/19 03:53 lisinopril Allergy Intermediate DROPS Verified 01/19/19 03:53 BLOOD PRESSURE TO LOW, Home Medications Home Medications Medication Instructions Recorded Confirmed Type [place] 1 tab PO QDL 05/17/18 01/19/19 History albuterol sulfate [Ventolin HFA] 2 puff INHALATION Q4 PRN 05/17/18 01/19/19 History aspirin [Aspir-Low] 81 mg PO QAM 05/17/18 01/19/19 History atorvastatin [Lipitor] 20 mg PO QAM 05/17/18 01/19/19 History ferrous sulfate 325 mg PO QAM 05/17/18 01/19/19 History furosemide [Lasix] 40 mg PO DAILY PRN 05/17/18 01/19/19 History furosemide [Lasix] 40 mg PO QAM 05/17/18 01/19/19 History latanoprost [Xalatan] 1 drp OPB HS 05/17/18 01/19/19 History levalbuterol HCl [Xopenex] 1 dose INHALATION UD PRN 05/17/18 01/19/19 History levothyroxine [Synthroid] 112 mcg PO QAM 05/17/18 01/19/19 History metoprolol tartrate 25 mg PO BID 05/17/18 01/19/19 History omeprazole 20 mg PO QAM 05/17/18 01/19/19 History prednisone 5 mg PO DAILY 05/17/18 01/19/19 History tamsulosin 0.4 mg PO QDD 05/17/18 01/19/19 History warfarin [Coumadin] 5 mg PO 4XWK 05/17/18 01/19/19 History Trelegy Ellipta 1 puff INHALATION QAM 07/30/18 01/19/19 History docusate sodium [Colace] 100 mg PO BID 07/30/18 01/19/19 History polyethylene glycol 3350 [Miralax] 17 g PO QAM 07/30/18 01/19/19 History warfarin 2.5 mg PO 3XWK 07/30/18 01/19/19 History cetirizine 5 mg PO DAILY 01/19/19 01/19/19 History escitalopram oxalate [Lexapro] 5 mg PO DAILY 01/19/19 01/19/19 History fluticasone propionate [Flonase 2 spray INTRANASAL DAILY 01/19/19 01/19/19 History Allergy Relief] melatonin 5 mg PO HS 01/19/19 01/19/19 History ranitidine HCl [Zantac] 150 mg PO BID 01/19/19 01/19/19 History Patient History Medical History Permanent atrial fibrillation Chronic diastolic heart failure Hernia HTN (hypertension) (Chronic) COPD (chronic obstructive pulmonary disease) (Chronic) Hypothyroid (Chronic) Dyslipidemia (Chronic) GERD (gastroesophageal reflux disease) (Chronic) CKD (chronic kidney disease) stage 3, GFR 30-59 ml/min (Chronic) Sensorineural hearing loss (Chronic) TIA (transient ischemic attack) (Resolved) Cerebrovascular disease (Chronic) History of tobacco use (Chronic) "quit in 1982" Asthma (Chronic) Paroxysmal a-fib (Chronic) "postoperative" Bronchitis CHF (congestive heart failure) Respiratory failure, acute Surgical History History of CEA (carotid endarterectomy) "Right side" Heart valve replaced (Chronic) "aortic valve replacement 2013" On 01/26/15 18:57 Suzanne Cheek wrote "aortic valve replacement " History of intestinal surgery S/P aortic valve replacement with bioprosthetic valve Family History Sister Lung cancer Brother FH: stomach cancer Social History Preferred Language: Qat[place] Communication Ability: Effective Process Analyst Required: No Beliefs That Will Affect Care: None marital status: / Current Living Situation: Family Current Living Situation Comment: lives with son and DIL current occupational status: retired Other Information That Helps Us Care for You: No Feels Safe at Home: Yes Safety Concerns: Feels Safe At This Time Smoking Status: Former smoker Do You Dip or Chew Tobacco: No ; Second Hand Exposure: No ; Tobacco Cessation Education Requested by Patient: No Hx Alcohol Use: No Hx Substance Use: No Review of Systems Review of Systems: All systems reviewed & are unremarkable except as noted in HPI & below Physical Exam Constitutional: no acute distress Eyes: PERRL, conjunctivae normal, anicteric sclerae ENMT: external ear and nose normal, oropharynx normal Neck: trachea midline, no thyromegaly Right carotid enterectomy scar present Respiratory: no audible wheezes Auscultation: + diminished lung sounds Cardiovascular: Rate/Rhythm: + irregularly irregular Heart Sounds: normal S1, normal S2 and + murmur (Harsh, wheezy grade 2/6 systolic murmur at apex); no gallop Vessels: normal carotid upstroke and radial pulses present Extremities: + edema (Trace) Gastrointestinal (Abdomen): normal bowel sounds, soft, nontender, no hepato splenomegaly Musculoskeletal: no cyanosis or clubbing, extremities motor strength 5/5 Skin: no rashes, warm and dry Neurologic: PERRL, EOMI, accommodation nl, no face palsy, no dysarthria Psychiatric: A+Ox3, euthymic affect Results & Data Vital Signs (Past 12 Hours) Vital Signs Temp Pulse Pulse Resp BP BP Pulse Ox 01/19/19 10:49 36.7 C 71 18 119/64 99 01/19/19 07:27 36.9 C 98 H 20 113/57 L 97 01/19/19 06:56 37.9 C H 01/19/19 06:48 37.9 C H 95 H 14 101/58 L 99 01/19/19 06:30 95 H 19 101/58 L 99 01/19/19 06:00 104 H 20 98/61 L 98 01/19/19 05:30 107 H 18 92/54 L 97 01/19/19 05:00 102 H 16 113/61 97 01/19/19 04:30 99 H 15 108/66 97 01/19/19 04:00 99 H 16 113/56 L 96 01/19/19 03:30 123 H 18 120/64 96 01/19/19 03:13 37.9 C H 121 H 28 H 106/51 L 96
[2019-01-19] MEDS ORDERED: WARFARIN SOD 5 MG TAB PO SCH (16:00)
[2019-01-19] MEDS: TAMSULOSIN HCL 0.4 MG CAP PO SCH (17:15)
[2019-01-19 17:26] LABS: Appearance Urine Clear (Clear); Bilirubin Urine Negative (Negative); Blood Urine Negative (Negative); Color Urine Yellow; Glucose Urine UA Negative (Negative); Ketones Urine Negative (Negative); Leukocyte Esterase Urine Negative (Negative); Nitrite Urine Negative (Negative); Protein Urine Negative (Negative); Specific Gravity Urine 1.017 (1.000-1.030); Urobilinogen Urine Negative (Negative)
[2019-01-19] MEDS ORDERED: NON-FORMULARY MEDICATION (Melatonin 5 MG) PO SCH (21:00)
[2019-01-19] MEDS: LATANOPROST 0.005% OP SOLN 2.5 ML BTL OPB SCH (21:10)
[2019-01-20 05:42] LABS: Basophils # (auto) 0.03 K/uL (0-0.2); Basophils % (auto) 0.5 %; Eosinophils # (auto) 0.12 K/uL (0-0.5); Hematocrit (blood only) 34.3 % (42-52); Hemoglobin 11.3 g/dL (14.0-18.0); Immature Granulocytes # (auto) 0.03 K/uL (0.00-0.02); Immature Granulocytes % (auto) 0.5 %; Lymphocytes % (auto) 15.2 %; Mean Corpuscular Hemoglobin 29.9 pg (25-34); Mean Corpuscular Hgb Conc 32.9 g/dL (32-36); Mean Corpuscular Volume 90.7 fL (80-100); Mean Platelet Volume 9.3 fL (7.4-10.4); Monocytes # (auto) 0.57 K/uL (0.11-0.59); Monocytes % (auto) 9.6 %; Neutrophils # (auto) 4.27 K/uL (1.4-6.5); Neutrophils % (auto) 72.2 %; Platelet Count 148 K/uL (130-400); RDW Coefficient of Variation 13.9 % (11.5-14.5); RDW Standard Deviation 46.5 fL (36.4-46.3); Red Blood Count 3.78 M/uL (4.7-6.1); White Blood Count 5.92 K/uL (4.8-10.8)
[2019-01-20] MEDS: LEVOTHYROXINE SODIUM 112 MCG TABLET PO SCH (05:42)
[2019-01-20 05:51] LABS: INR 2.5 (0.9-1.1)
[2019-01-20 06:10] LABS: BUN Creatinine Ratio 19.2 (10-20); Calcium 8.7 mg/dl (8.5-10.1); Creatinine Clr Calc Pharmacy 41.4 ml/min; Est GFR (African American) 57.3; Est GFR (Non-African American) 49.4; Magnesium 2.1 mg/dl (1.8-2.4); Potassium 3.7 mmol/L (3.5-5.1)
[2019-01-20 06:23] LABS: Thyroid Stimulating Hormone 0.883 uIu/ml (0.300-4.500)
[2019-01-20] MEDS: PANTOprazole 40 MG TAB PO SCH (08:29)
[2019-01-20] MEDS: METOPROLOL TARTRATE 25 MG TAB PO SCH ×2 (08:29→20:53)
[2019-01-20] MEDS: ESCITALOPRAM OXALATE 10 MG TAB PO SCH (08:30)
[2019-01-20] MEDS: DOCUSATE SODIUM 100 MG CAP PO SCH ×2 (08:30→20:53)
[2019-01-20] MEDS: POLYETHYLENE (MIRALAX) 17 GM PACK PO SCH (08:30)
[2019-01-20] MEDS: predniSONE 5 MG TAB PO SCH (08:30)
[2019-01-20] MEDS: ATORVASTATIN 20 MG TAB PO SCH (08:30)
[2019-01-20] MEDS: FERROUS SULFATE 325 MG TAB PO SCH (08:30)
[2019-01-20] MEDS: CETIRIZINE HCL 10 MG TABLET PO SCH (08:30)
[2019-01-20] MEDS: FLUTICASONE PROPIONATE NA SPR 16 GM BTL SCH (08:31)
[2019-01-20] MEDS: ASPIRIN 81 MG ECTAB PO SCH (08:31)
--- NOTE | 2019-01-20 10:46 | Cardiology Progress Note ---
Date of Service January 20, 2019 Assessment & Plan (1) Non-ST elevation [place] (NSTEMI): Patient presented with symptoms concerning for acute myocardial ischemia though multiple other factors contributing including acute on chronic diastolic heart failure, possible acute febrile illness. . Echocardiogram demonstrates preserved LV systolic function. Patient is currently asymptomatic, no further events overnight Troponins remain elevated with trending downward from a.m. check. Blood pressur es elevated this morning were previously low day prior Discussed findings in detail the patient he remains reluctant but would agree to cardiac catheterization if indicated. We will continue to hold Coumadin. Increase activity And oral nitrates for hypertension and antianginal effect Will follow closely regarding clinical course (2) Chronic atrial fibrillation: No arrhythmias or EKG changes (3) S/P aortic valve replacement with bioprosthetic valve: Valve functioning appropriately on echocardiogram (4) Chronic diastolic heart failure: Current exam without significant volume overload however BNP mildly elevated on presentation. Chest x-ray with chronic interstitial changes mild vascular plethora (5) CKD (chronic kidney disease) stage 3, GFR 30-59 ml/min: Subjective Patient seen and examined, chart, medications, telemetry reviewed. No further signs or symptoms overnight no chest pain shortness of breath tachypalpitations or dizziness. No abdominal pain or discomfort. No fevers or chills. Ambulatory in room Physical Exam Constitutional: no acute distress Eyes: PERRL, conjunctivae normal, anicteric sclerae ENMT: external ear and nose normal, oropharynx normal Neck: trachea midline, no thyromegaly Respiratory: no audible wheezes Auscultation: + diminished lung sounds Cardiovascular: Rate/Rhythm: + irregularly irregular Heart Sounds: normal S1, normal S2 and + murmur (Harsh, wheezy grade 2/6 systolic murmur at apex); no gallop Vessels: normal carotid upstroke and radial pulses present Extremities: + edema (Trace) Gastrointestinal (Abdomen): normal bowel sounds, soft, nontender, no hepatosplenomegaly Musculoskeletal: no cyanosis or clubbing, extremities motor strength 5/5 Skin: no rashes, warm and dry Neurologic: PERRL, EOMI, accommodation nl, no face palsy, no dysarthria Psychiatric: A+Ox3, euthymic affect Results & Data Vital Signs (Past 12 Hours) Vital Signs Temp Pulse Pulse Resp BP Pulse Ox 01/20/19 07:20 36.7 C 77 19 172/67 H 99 01/20/19 05:11 36.8 C 73 20 136/65 96 01/20/19 01:48 62 01/19/19 23:42 36.6 C 67 18 108/60 97 Laboratory Results Laboratory Results - last 24 hr 01/19/19 01/19/19 01/19/19 13:19 17:20 19:13 WBC RBC Hgb Hct MCV MCH MCHC RDW Std Deviation RDW Coeff of Thierry Plt Count MPV Immature Gran % (Auto) Neut % (Auto) Lymph % (Auto) [place] % (Auto) Eos % (Auto) Baso % (Auto) Immature Gran # (Auto) Neut # (Auto) Lymph # (Auto) [place] # (Auto) Eos # (Auto) Baso # (Auto) PT INR Sodium Potassium Chloride Carbon Dioxide Anion Gap BUN Creatinine Est Cr Clr Drug Dosing Est GFR ( Amer) Est GFR (Non-Af Amer) BUN/Creatinine Ratio Glucose POC Glucose Calcium Magnesium Troponin I 0.561 H* 0.446 H* TSH Urine Color Yellow Urine Appearance Clear Urine pH 5.0 Ur Specific [place] 1.017 Urine Protein Negative Urine Glucose (UA) Negative Urine Ketones Negative Urine Blood Negative Urine Nitrite Negative Urine Bilirubin Negative Urine Urobilinogen Negative Ur Leukocyte Esterase Negative 01/20/19 01/20/19 01/20/19 05:16 05:16 05:16 WBC 5.92 RBC 3.78 L Hgb 11.3 L Hct 34.3 L MCV 90.7 MCH 29.9 MCHC 32.9 RDW Std Deviation 46.5 H RDW Coeff of Thierry 13.9 Plt Count 148 MPV 9.3 Immature Gran % (Auto) 0.5 Neut % (Auto) 72.2 Lymph % (Auto) 15.2 [place] % (Auto) 9.6 Eos % (Auto) 2.0 Baso % (Auto) 0.5 Immature Gran # (Auto) 0.03 H Neut # (Auto) 4.27 Lymph # (Auto) 0.90 L [place] # (Auto) 0.57 Eos # (Auto) 0.12 Baso # (Auto) 0.03 PT 24.0 H INR 2.5 H Sodium 139 Potassium 3.7 Chloride 100 Carbon Dioxide 32 Anion Gap 7.0 BUN 25 H Creatinine 1.30 D Est Cr Clr Drug Dosing 41.4 Est GFR ( Amer) 57.3 Est GFR (Non-Af Amer) 49.4 BUN/Creatinine Ratio 19.2 Glucose 89 POC Glucose Calcium 8.7 Magnesium 2.1 Troponin I TSH 0.883 Urine Color Urine Appearance Urine pH Ur Specific [place] Urine Protein Urine Glucose (UA) Urine Ketones Urine Blood Urine Nitrite Urine Bilirubin Urine Urobilinogen Ur Leukocyte Esterase 01/20/19 01/20/19 07:31 09:13 WBC RBC Hgb Hct MCV MCH MCHC RDW Std Deviation RDW Coeff of Thierry Plt Count MPV Immature Gran % (Auto) Neut % (Auto) Lymph % (Auto) [place] % (Auto) Eos % (Auto) Baso % (Auto) Immature Gran # (Auto) Neut # (Auto) Lymph # (Auto) [place] # (Auto) Eos # (Auto) Baso # (Auto) PT INR Sodium Potassium Chloride Carbon Dioxide Anion Gap BUN Creatinine Est Cr Clr Drug Dosing Est GFR ( Amer) Est GFR (Non-Af Amer) BUN/Creatinine Ratio Glucose POC Glucose 105 H Calcium Magnesium Troponin I 0.174 H* TSH Urine Color Urine Appearance Urine pH Ur Specific [place] Urine Protein Urine Glucose (UA) Urine Ketones Urine Blood Urine Nitrite Urine Bilirubin Urine Urobilinogen Ur Leukocyte Esterase ECG Additional Comments: Atrial fibrillation with a competing junctional pacemaker Left axis deviation Abnormal ECG When compared with ECG of 19-JAN-2019 14:00, (unconfirmed) No significant change was found
[2019-01-20] MEDS: ISOSORBIDE MONO EXTENDED REL 30 MG TABCR PO SCH (11:22)
--- NOTE | 2019-01-20 11:55 | Hospitalist Progress Note ---
Date of Service January 20, 2019 Assessment & Plan (1) Non-ST elevation [place] (NSTEMI): Acute onset chest pain, shortness of breath, vomiting all resolved Troponin peaked overnight at 0.5. now 0.1 this AM Discussed case with Barge Loader. Will continue to hold warfarin for now. Records for prev cath requested yesterday. Started on imdur this AM Continue aspirin and statin Will monitor today. Will plan for possible discharge tomorrow if stable and no plans for inpatient cardiac cath (2) Acute renal failure superimposed on stage 3 chronic kidney disease: Cr 1.3 today from 1.8 on admission Monitor Cr Will resume diuretics tomorrow (3) COPD (chronic obstructive pulmonary disease): Currently stable, not in exacerbation Continue home O2, nebs and meds for COPD (4) Chronic atrial fibrillation: Currently rate controlled Continue to hold warfarin as reported above Continue metoprolol (5) Chronic diastolic heart failure: Currently euvolemic on clinical exam Diuretic still on hold due to VIDHI on CKD Echo results noted (6) Hypothyroid: Continue levothyroxine Subjective Patient seen and evaluated Has no complaints Denied chest pain, SOB, cough, palpitations Denied nausea, vomiting, abdominal pain Review of Systems Review of Systems: All systems reviewed and unremarkable except for mentioned above. Physical Exam Physical Exam: General: Well nourished, well hydrated, average body habitus, no acute distress and not ill appearing Eyes: PERRL, conjunctivae normal, not pale, anicteric sclerae, EOM intact bilaterally ENMT: External ear and nose normal, oropharynx normal Neck: Normal visual inspection, no tracheal deviation, no swelling noted Respiratory: Normal respiratory effort, no respiratory distress, lungs clear to auscultation, no crackles and no wheezes Cardiovascular: Pulse is irregularly irregular. no pedal edema Gastrointestinal (Abdomen): Abdomen is not distended, soft, non-tender to palpation, no guarding, no palpable hepatosplenomegaly, normal bowel sounds Neurologic: Alert and oriented x 3, No focal weakness, sensation grossly intact Results & Data Vital Signs (Past 12 Hours) Vital Signs Temp Pulse Pulse Resp BP Pulse Ox 01/20/19 11:07 36.5 C 73 18 126/55 L 96 01/20/19 07:20 36.7 C 77 19 172/67 H 99 01/20/19 05:11 36.8 C 73 20 136/65 96 01/20/19 01:48 62 Laboratory Results Laboratory Results - last 24 hr 01/19/19 01/19/19 01/19/19 13:19 17:20 19:13 WBC RBC Hgb Hct MCV MCH MCHC RDW Std Deviation RDW Coeff of Thierry Plt Count MPV Immature Gran % (Auto) Neut % (Auto) Lymph % (Auto) [place] % (Auto) Eos % (Auto) Baso % (Auto) Immature Gran # (Auto) Neut # (Auto) Lymph # (Auto) [place] # (Auto) Eos # (Auto) Baso # (Auto) PT INR Sodium Potassium Chloride Carbon Dioxide Anion Gap BUN Creatinine Est Cr Clr Drug Dosing Est GFR ( Amer) Est GFR (Non-Af Amer) BUN/Creatinine Ratio Glucose POC Glucose Calcium Magnesium Troponin I 0.561 H* 0.446 H* TSH Urine Color Yellow Urine Appearance Clear Urine pH 5.0 Ur Specific [place] 1.017 Urine Protein Negative Urine Glucose (UA) Negative Urine Ketones Negative Urine Blood Negative Urine Nitrite Negative Urine Bilirubin Negative Urine Urobilinogen Negative Ur Leukocyte Esterase Negative 01/20/19 01/20/19 01/20/19 05:16 05:16 05:16 WBC 5.92 RBC 3.78 L Hgb 11.3 L Hct 34.3 L MCV 90.7 MCH 29.9 MCHC 32.9 RDW Std Deviation 46.5 H RDW Coeff of Thierry 13.9 Plt Count 148 MPV 9.3 Immature Gran % (Auto) 0.5 Neut % (Auto) 72.2 Lymph % (Auto) 15.2 [place] % (Auto) 9.6 Eos % (Auto) 2.0 Baso % (Auto) 0.5 Immature Gran # (Auto) 0.03 H Neut # (Auto) 4.27 Lymph # (Auto) 0.90 L [place] # (Auto) 0.57 Eos # (Auto) 0.12 Baso # (Auto) 0.03 PT 24.0 H INR 2.5 H Sodium 139 Potassium 3.7 Chloride 100 Carbon Dioxide 32 Anion Gap 7.0 BUN 25 H Creatinine 1.30 D Est Cr Clr Drug Dosing 41.4 Est GFR ( Amer) 57.3 Est GFR (Non-Af Amer) 49.4 BUN/Creatinine Ratio 19.2 Glucose 89 POC Glucose Calcium 8.7 Magnesium 2.1 Troponin I TSH 0.883 Urine Color Urine Appearance Urine pH Ur Specific [place] Urine Protein Urine Glucose (UA) Urine Ketones Urine Blood Urine Nitrite Urine Bilirubin Urine Urobilinogen Ur Leukocyte Esterase 01/20/19 01/20/19 01/20/19 07:31 09:13 11:20 WBC RBC Hgb Hct MCV MCH MCHC RDW Std Deviation RDW Coeff of Thierry Plt Count MPV Immature Gran % (Auto) Neut % (Auto) Lymph % (Auto) [place] % (Auto) Eos % (Auto) Baso % (Auto) Immature Gran # (Auto) Neut # (Auto) Lymph # (Auto) [place] # (Auto) Eos # (Auto) Baso # (Auto) PT INR Sodium Potassium Chloride Carbon Dioxide Anion Gap BUN Creatinine Est Cr Clr Drug Dosing Est GFR ( Amer) Est GFR (Non-Af Amer) BUN/Creatinine Ratio Glucose POC Glucose 105 H 111 H Calcium Magnesium Troponin I 0.174 H* TSH Urine Color Urine Appearance Urine pH Ur Specific [place] Urine Protein Urine Glucose (UA) Urine Ketones Urine Blood Urine Nitrite Urine Bilirubin Urine Urobilinogen Ur Leukocyte Esterase (1) Acute renal failure superimposed on stage 3 chronic kidney disease Acute renal failure type: with acute tubular necrosis Qualified Code(s): N17.0 - Acute kidney failure with tubular necrosis; N18.3 - Chronic kidney disease, stage 3 (moderate) (2) Hypothyroid Hypothyroidism type: unspecified Qualified Code(s): E03.9 - Hypothyroidism, unspecified
[2019-01-20] MEDS: TAMSULOSIN HCL 0.4 MG CAP PO SCH (17:43)
[2019-01-20] MEDS: LATANOPROST 0.005% OP SOLN 2.5 ML BTL OPB SCH (20:53)
[2019-01-21 05:59] LABS: Prothrombin Time 19.3 Seconds (9.0-12.0)
[2019-01-21] MEDS: LEVOTHYROXINE SODIUM 112 MCG TABLET PO SCH (06:09)
[2019-01-21] MEDS: POLYETHYLENE (MIRALAX) 17 GM PACK PO SCH (07:40)
[2019-01-21] MEDS: ESCITALOPRAM OXALATE 10 MG TAB PO SCH (07:41)
[2019-01-21] MEDS: CETIRIZINE HCL 10 MG TABLET PO SCH (07:42)
[2019-01-21] MEDS: ISOSORBIDE MONO EXTENDED REL 30 MG TABCR PO SCH (07:42)
[2019-01-21] MEDS: FERROUS SULFATE 325 MG TAB PO SCH (07:42)
[2019-01-21] MEDS: ASPIRIN 81 MG ECTAB PO SCH (07:42)
[2019-01-21] MEDS: DOCUSATE SODIUM 100 MG CAP PO SCH (07:43)
[2019-01-21] MEDS: PANTOprazole 40 MG TAB PO SCH (07:43)
[2019-01-21] MEDS: METOPROLOL TARTRATE 25 MG TAB PO SCH (07:43)
[2019-01-21] MEDS: ATORVASTATIN 20 MG TAB PO SCH (07:43)
[2019-01-21] MEDS: FLUTICASONE PROPIONATE NA SPR 16 GM BTL SCH (07:44)
[2019-01-21] MEDS: predniSONE 5 MG TAB PO SCH (07:44)
--- NOTE | 2019-01-21 09:14 | Hospitalist Progress Note ---
Date of Service January 21, 2019 Assessment & Plan (1) Non-ST elevation [place] (NSTEMI): Acute onset chest pain, shortness of breath, vomiting all resolved Troponin peaked overnight at 0.5. and trended down Discussed with patient and son. Patient is not keep on any invasive evaluation at this time Discussed case with Gas Engineer. Patient will follow up for outpatient stress testing and further management. Will discharge on imdur this AM Continue aspirin and statin (2) Acute renal failure superimposed on stage 3 chronic kidney disease: VIDHI resolved. Cr 1.3 yesterday (back to baseline) Resume home diuretics on discharge (3) COPD (chronic obstructive pulmonary disease): Currently stable, not in exacerbation Continue home O2, nebs and meds for COPD (4) Chronic atrial fibrillation: Currently rate controlled Continue warfarin on discharge to maintain therapeutic INR Continue metoprolol (5) Chronic diastolic heart failure: Currently euvolemic on clinical exam Continue diuretics Echo results noted (6) Hypothyroid: Continue levothyroxine Subjective Patient has no complaints today Review of Systems Constitutional: no fever, no chills, no body aches and no fatigue Eyes: no problem reported Ear, Nose, Mouth, Throat: + hearing loss (chronic hearing loss) Respiratory: no cough, no chest congestion, no dyspnea and no wheezing Cardiovascular: no chest pain, no dyspnea, no dyspnea on exertion, no palpitations and no edema Gastrointestinal: no problem reported Musculoskeletal: no problem reported Psychiatric: no problem reported Physical Exam Physical Exam: General: Not in any distress and not ill appearing Eyes: PERRL, conjunctivae normal, not pale, anicteric sclerae, EOM intact bilaterally ENMT: External ear and nose normal, oropharynx normal Neck: Normal visual inspection, no tracheal deviation, no swelling noted Respiratory: Normal respiratory effort, no respiratory distress, on 2l/min nasal cannula, lungs clear to auscultation, no crackles and no wheezes Cardiovascular: Pulse is irregularly irregular. no pedal edema Gastrointestinal (Abdomen): Abdomen is not distended, soft, non-tender to palpation, no guarding, no palpable hepatosplenomegaly, normal bowel sounds Neurologic: Alert and oriented x 3, No focal weakness, sensation grossly intact Results & Data Vital Signs (Past 12 Hours) Vital Signs Temp Pulse Pulse Resp BP Pulse Ox 01/21/19 07:03 36.4 C L 71 18 135/67 96 01/21/19 03:50 36.8 C 65 18 132/67 97 01/20/19 23:26 36.8 C 77 17 144/66 H 98 01/20/19 23:24 92 H Laboratory Results Laboratory Results - last 24 hr 01/20/19 01/21/19 16:14 05:28 PT 19.3 H INR 2.0 H POC Glucose 168 H (1) Hypothyroid Hypothyroidism type: unspecified Qualified Code(s): E03.9 - Hypothyroidism, unspecified (2) Acute renal failure superimposed on stage 3 chronic kidney disease Acute renal failure type: with acute tubular necrosis Qualified Code(s): N17.0 - Acute kidney failure with tubular necrosis; N18.3 - Chronic kidney disease, stage 3 (moderate)
--- NOTE | 2019-01-21 11:47 | Cardiology Progress Note ---
Date of Service January 21, 2019 Assessment & Plan (1) Non-ST elevation [place] (NSTEMI): Patient presented with symptoms concerning for acute myocardial ischemia though multiple other factors contributing including acute on chronic diastolic heart failure, possible acute febrile illness. . Echocardiogram demonstrates preserved LV systolic function. Patient is currently asymptomatic, no further events since admission Discussed findings in detail the patient he remains reluctant as her family to proceed with diagnostic cardiac catheterization. This appears appropriate and will pursue initial conservative therapy. Plan: Resume prehospital medications. Add nitrates as ordered in hospital Lexiscan stress nuclear study to be performed as an outpatient and appointment being scheduled Patient has scheduled appointment with Abad Brand on 02/19/2019 Patient and family advised to return immediately should new symptoms develop in the interim If stress testing suggestive significant ischemia would proceed with diagnostic cardiac catheterization at that time (2) Chronic atrial fibrillation: No arrhythmias or EKG changes (3) S/P aortic valve replacement with bioprosthetic valve: Valve functioning appropriately on echocardiogram (4) Chronic diastolic heart failure: Current exam without significant volume overload however BNP mildly elevated on presentation. Chest x-ray with chronic interstitial changes mild vascular plethora (5) CKD (chronic kidney disease) stage 3, GFR 30-59 ml/min: Subjective With good tolerance. Patient seen and examined, chart, medications, telemetry reviewed. No further signs or symptoms overnight no chest pain shortness of breath tachypalpitations or dizziness. No abdominal pain or discomfort. No fevers or chills. Ambulatory in room with good tolerance. No arrhythmias on telemetry EKG without change Physical Exam Constitutional: no acute distress Eyes: PERRL, conjunctivae normal, anicteric sclerae ENMT: external ear and nose normal, oropharynx normal Neck: trachea midline, no thyromegaly Respiratory: no audible wheezes Auscultation: + diminished lung sounds Cardiovascular: Rate/Rhythm: + irregularly irregular Heart Sounds: normal S1, normal S2 and + murmur (Harsh, wheezy grade 2/6 systolic murmur at apex); no gallop Vessels: normal carotid upstroke and radial pulses present Extrem ities: + edema (Trace) Gastrointestinal (Abdomen): normal bowel sounds, soft, nontender, no hepatosplenomegaly Musculoskeletal: no cyanosis or clubbing, extremities motor strength 5/5 Skin: no rashes, warm and dry Neurologic: PERRL, EOMI, accommodation nl, no face palsy, no dysarthria Psychiatric: A+Ox3, euthymic affect Results & Data Vital Signs (Past 12 Hours) Vital Signs Temp Pulse Resp BP Pulse Ox 01/21/19 07:03 36.4 C L 71 18 135/67 96 01/21/19 03:50 36.8 C 65 18 132/67 97 Laboratory Results Laboratory Results - last 24 hr 01/20/19 01/21/19 16:14 05:28 PT 19.3 H INR 2.0 H POC Glucose 168 H
[2019-01-21] MEDS ORDERED: FLUTICASONE/UMECLIDIN/VILANTER INH SCH (14:00)
--- NOTE | 2019-01-21 15:11 | Discharge Summary ---
Date of Service January 21, 2019 Admission HPI Per Admitting Provider 88-year-old male with past medical history significant for COPD, chronic respiratory failure, on oxygen 2 liters all the time, hypothyroidism, hyperlipidemia, history of atrial fibrillation, pulmonary hypertension, chronic right-sided heart failure, peripheral vascular disease, hypertension, chronic kidney disease stage III, GERD, iron-deficiency anemia, status post aortic valve replacement, history of depression, hernia of anterior abdominal wall who lives with his son and [id number], was brought in by his [id number] because of chest discomfort and shortness of breath. The patient states that he woke up in the middle of the night feeling cold, chilly and he also experienced some shortness of breath and left-sided chest pain, irritating kind of feeling and he also vomited a small amount of vomitus and that has prompted him to come to the ER. Currently resting comfortably and hemodynamically stable. Currently, he is feeling better. His symptoms improved. He has chronic cough from his COPD, nothing unusual, sometimes he has yellowish and greenish phlegm. He was feeling cold, but denies any fever, denies any headaches, no blurred vision, no earache, no runny nose, no sore throat. Appetite is okay. He has been noncompliant with salt yesterday and yesterday morning he took an extra dose of Lasix because the legs were swollen and he has gained some weight. The swelling in the extremities has come down. Denies any abdominal pain. Normal bowel and bladder movements. No blood in the stools. No burning micturition, no rash. Ambulates okay without any help. He even drives the car. Admission Exam Per Admitting Provider GENERAL: The patient is of moderate build, not in acute distress. VITAL SIGNS: Temperature 37.9, pulse 102, respiratory rate 16, blood pressure 113/61, oxygen 97% on 4 liters. HEENT: No pallor, no icterus. Pupils equal, round, and reactive to light. Extraocular muscles intact. NECK: No JVD, no neck masses, no carotid bruit. CARDIOVASCULAR: S1, S2 heard, irregular rhythm, no murmur, no gallop. RESPIRATORY SYSTEM: Normal AP diameter. No accessory muscle use. Mildly diminished breath sounds at the bases. No wheezing, no crackles. ABDOMEN: Soft, bowel sounds present. Nontender. Abdominal wall hernia seen. No distention, no guarding. CENTRAL NERVOUS SYSTEM: Alert and oriented. Nonfocal. EXTREMITIES: Trace pedal edema, no erythema seen. Principal Diagnosis NSTEMI (Non ST- Elevation Myocardial Infarction) Chronic Diastolic Heart Failure Discharge Exam General: Not in any distress and not ill appearing Eyes: PERRL, conjunctivae normal, not pale, anicteric sclerae, EOM intact bilaterally ENMT: External ear and nose normal, oropharynx normal Neck: Normal visual inspection, no tracheal deviation, no swelling noted Respiratory: Normal respiratory effort, no respiratory distress, on 2l/min nasal cannula, lungs clear to auscultation, no crackles and no wheezes Cardiovascular: Pulse is irregularly irregular. no pedal edema Gastrointestinal (Abdomen): Abdomen is not distended, soft, non-tender to palpation, no guarding, no palpable hepatosplenomegaly, normal bowel sounds Neurologic: Alert and oriented x 3, No focal weakness, sensation grossly intact Discharge Data Allergies Allergy/AdvReac Type Severity Reaction Status Date / Time shellfish derived Allergy Severe ANAPHYLAXIS Verified 01/19/19 03:53 shrimp Allergy Severe ANAPHYLAXIS Verified 01/19/19 03:53 lisinopril Allergy Intermediate DROPS Verified 01/19/19 03:53 BLOOD PRESSURE TO LOW, Consultations 01/19/19 04:55 ED Decision to Admit Stat 01/19/19 07:22 Consult Case Management - Discharge Planning Routine 01/19/19 08:00 Consult Cardiology Routine Ordered Studies Troponin - 0.046-->> 0.56-->>0.17 EKG - Afib, no ST-T ischemic changes Echo - EF is 60-65%, bioprosthetic aortic valve, no segmental wall motion abnormalities. Similar to prior Echo Hospital Course (1) Non-ST elevation NV (NSTEMI): Acute onset chest pain, shortness of breath, vomiting all resolved Troponin peaked overnight at 0.56. and trended down Was not placed on heparin as patient was on warfarin with a therapeutic INR on admission. Warfarin was held briefly Discussed with patient and son. Patient is not keen on any invasive evaluation at this time Discussed case with Claims Service Representative. Patient will follow up for outpatient stress testing and further management. Started on imdur q AM Continue aspirin and statin (2) Acute renal failure superimposed on stage 3 chronic kidney disease: VIDHI resolved. Cr was 1.8 on admission, returned to 1.3 yesterday (back to baseline) Resume home diuretics and monitor kidney funtion with PCP (3) COPD (chronic obstructive pulmonary disease): Currently stable, not in exacerbation Continue home O2, nebs and meds for COPD (4) Chronic atrial fibrillation: Currently rate controlled Continue warfarin on discharge to maintain therapeutic INR Continue metoprolol (5) Chronic diastolic heart failure: Currently euvolemic on clinical exam Continue diuretics Echo results noted (6) Hypothyroid: Continue levothyroxine Total Time Total Time Spent Total Time Spent (In Minutes): 25 Total Time Includes: Examination of the Patient, Discharge Planning, Medication Reconciliation and Communication With Other Providers Discharge Plan Discharge Items Patient Disposition: Home - Self-Care Reason For Visit: CHEST PAIN, SOB, FEELING COLD Discharge Diagnosis: NSTEMI (Non ST- Elevation Myocardial Infarction) Condition on Discharge: Good Activity: Resume your previous activity Activity Comment: As tolerated Non-emergency contact: Primary Care Provider and Claims Service Representative Call non-emergency contact if: you have any medication questions Follow-up/Referrals: Leonides Alonzo MD [Physician] - Taj Rios MD [Primary Care Provider] - Diet: Heart Healthy and Low Sodium (2gm) Addtl Attending Provider Instructions: Mr Toribio. You came into the hospital for sudden onset chest pain, shortness of breath and cough that woke you up at night. You were evaluated in the hospital. Blood tests show you likely had a "heart attack" as troponins (enzymes produced by heart muscles when under stress were elevated). Echocardiogram (ultrasound of your heart) and EKGs were done as well. You were also evaluated by the direct sales professional. You will need further evaluation of your heart with stress test and possibly a cardiac catheterization. After discussions with you, your family and Claims Service Representative, you preferred to follow up with the Claims Service Representative office for these evaluations and further testing. You were also started on a new medication (isosorbide mononitrate) for your heart. Ensure you take all your medications as prescribed including your warfarin. Please ensure you follow up with the Claims Service Representative and your Primary Doctor within 1 week. It was a pleasure taking care of you. Pending Studies at Discharge: No Stand-Alone Forms: My [facility] Mobile Medications and DC Order Prescriptions: New isosorbide mononitrate 30 mg Tablet Extended Release 24 Hr 30 mg PO QAM 30 Days Qty: 30 RF: 1 Continued furosemide [Lasix] 40 mg tablet 40 mg PO DAILY PRN (Reason: WEIGHT GAIN) RF: 0 furosemide [Lasix] 40 mg tablet 40 mg PO QAM RF: 0 latanoprost [Xalatan] 0.005 % drops 1 drp OPB HS RF: 0 atorvastatin [Lipitor] 20 mg tablet 20 mg PO QAM RF: 0 prednisone 5 mg tablet 5 mg PO DAILY RF: 0 aspirin [Aspir-Low] 81 mg Tablet,Delayed Release (Dr/Ec) 81 mg PO QAM RF: 0 tamsulosin 0.4 mg capsule 0.4 mg PO QDD RF: 0 ferrous sulfate 325 mg (65 mg iron) Tablet 325 mg PO QAM RF: 0 omeprazole 20 mg capsule,delayed release(DR/EC) 20 mg PO QAM RF: 0 levalbuterol HCl [Xopenex] 1.25 mg/3 mL solution for nebulization 1 dose Inhalation UD PRN (Reason: Shortness Of Breath) RF: 0 albuterol sulfate [Ventolin HFA] 90 mcg/actuation Hfa Aerosol Inhaler 2 puff INHALATION Q4 PRN (Reason: Wheezing) RF: 0 levothyroxine [Synthroid] 112 mcg tablet 112 mcg PO QAM RF: 0 metoprolol tartrate 25 mg Tablet 25 mg PO BID RF: 0 [place] 1 tab PO QDL RF: 0 warfarin [Coumadin] 5 mg tablet 5 mg PO 4XWK RF: 0 polyethylene glycol 3350 [Miralax] 17 gram Powder In Packet 17 g PO QAM RF: 0 docusate sodium [Colace] 100 mg Capsule 100 mg PO BID RF: 0 Trelegy Ellipta 100-62.5-25 mcg blister with device 1 puff inhalation QAM RF: 0 warfarin 2.5 mg Tablet 2.5 mg PO 3XWK RF: 0 cetirizine 10 mg Tablet 5 mg PO DAILY RF: 0 ranitidine HCl [Zantac] 150 mg Tablet 150 mg PO BID RF: 0 fluticasone propionate [Flonase Allergy Relief] 50 mcg/actuation [place],Suspension 2 spray INTRANASAL DAILY RF: 0 melatonin 1 mg Tablet 5 mg PO HS RF: 0 escitalopram oxalate [Lexapro] 5 mg Tablet 5 mg PO DAILY RF: 0 Discharge Orders: Discharge Order (Routine); Ordered 01/21/19 Ordered By: Marilin Hall/Other Patient Handouts: Troponin, Heart Attack Sx, Heart Attack First Aid Admission Data Admit Date/Time: 01/19/19 06:20 Attending Provider: Marilin Beth I. Admit Provider: Marcelo Mattson Primary Care Provider: Taj Rios Other Providers: Marcelo Mattson ; Jair Wood ; Fadi Torres ; Leonides Alonzo ; Karl Sheehan ; Narciso Ritter ; Abad Brand ; Jessica Nolasco ; Micheline Pineda Other Interventions: Discharge Summary Assessment (RN) Last Done: 01/21/19 13:00 DC Date/Time DO NOT enter until pt leaves facility: 01/21/19 13:51
[2019-01-21] MEDS ORDERED: WARFARIN SOD 2.5 MG TAB PO SCH (16:00)
== END 2019-01-21 13:51 | disposition home or self-care (01) | DRG 281 ==
LOC: ED 03:05 → 2E 06:20

== ENCOUNTER 2019-04-29 05:04 | Inpatient (IN) ==
[2019-04-29] MEDS ORDERED: ALBUT/IPRATROP 3MG/0.5MG NEB 3 ML VIAL NEB ONE (05:12)
[2019-04-29] MEDS ORDERED: methylPREDNISolone 125 MG/2 ML VIAL IV STA (05:12)
[2019-04-29 05:26] LABS: Basophils # (auto) 0.02 K/uL (0-0.2); Basophils % (auto) 0.3 %; Hematocrit (blood only) 39.2 % (42-52); Hemoglobin 12.8 g/dL (14.0-18.0); Immature Granulocytes # (auto) 0.03 K/uL (0.00-0.02); Immature Granulocytes % (auto) 0.4 %; Lymphocytes # (auto) 0.65 K/uL (1.2-3.4); Lymphocytes % (auto) 8.2 %; Mean Corpuscular Hgb Conc 32.7 g/dL (32-36); Mean Platelet Volume 9.9 fL (7.4-10.4); Monocytes # (auto) 0.64 K/uL (0.11-0.59); Monocytes % (auto) 8.1 %; Neutrophils # (auto) 6.58 K/uL (1.4-6.5); Platelet Count 189 K/uL (130-400); RDW Standard Deviation 47.1 fL (36.4-46.3); Red Blood Count 4.26 M/uL (4.7-6.1); White Blood Count 7.92 K/uL (4.8-10.8)
--- NOTE | 2019-04-29 05:30 | Emergency Department Note ---
ED Provider Note Name: BAM GONZALEZ Age: 89 Arrives Via: Ambulance Informant: Patient, Son, EMS CC: Shortness of breath HPI: 89M arrives for evaluation of Shortness of breath. Patient with long standing history of COPD, afib, chf arrives in acute respiratory distress. Patient with worsening shortness of breath 1 week ago. Associated runny nose, cough, fatigue, and chest tightness. Seen by PCP and started on steroids and azithromycin. Ambulating around house OK yesterday. This evening rapidly w orsening shortness of breath. Worse with exertion, better with rest. Neb taken without improvement. EMS called. Given Duoneb x 2 en route with mild improvement. No current chest pain, headache, neck pain, back pain, abdominal pain, nausea, vomiting, leg swelling, rashes, urinary/bowel changes, fevers, chills nor other symptoms. Multiple family members sick with uri symptoms. ROS: See above HPI for pertinent positives & negatives. A total of 10 systems reviewed and were otherwise negative. Past Medical History:COPD, CHF, Afib, Hypothyroid, HTN, GERD, BPH Past Surgical History:AVR, CEA Family History:Sister Lung CA, Brother Stomach CA Social History:, lives with son, retired, previous smoker, no etoh. Home Medications:See Below Allergies:Shellfish, shrimp, lisinopril Vitals:Blood Pressure 183/95, Pulse 142, Resp 23, T 37.9C, O2 100% on 60% BIPAP Physical Exam: GENERAL: Patient is severely unwell appearing and in severe distress. Anxious EYES: No scleral icterus, unremarkable pupils. ENT: Mucous membranes moist, no nasal congestion. NECK: No masses appreciated, nomeningismus, trachea is midline. RESPIRATORY: Severely tight lung sounds with distant wheeze, tachypnea, dyspnea. CARDIOVASCULAR: Tachy irregular.No murmurs, rubs, gallops appreciated. GASTROINTESTINAL: Abdomen soft, non-tender, no peritonitis.Bowel sounds positive.No masses appreciated. BACK: No midline tenderness, no CVA tenderness EXTREMITIES: Normal motion all extremities, no cyanosis, no edema. NEUROLOGIC: Alert and oriented, no acute motor or sensory deficits, no focal weakness, cranial nerves grossly intact. SKIN: No rash, no jaundice, no diaphoresis. ED Course: Prior Medical Record, Triage/Nursing Notes, Medications, Allergies reviewed by Me Vital Signs: reviewed and remarkable for tachy Labs:Reviewed and remarkable for low ph, elevated co2 Interventions: saline lock, lopressor 5mg V x 2, ativan 0.5mg IV x 2, doxycycline 100mg IV, solumedrol 125 mg IV, BIPAP Imaging:X ray results are stated below per my interpretation: Chest: 1 view: Chronic lung disease, similar to previous imaging EKG:Per My Interpretation: Indication Tachycardia: Afib RVR 118 bpm, qtc 445. Mild lateral ST Depressions. Compared to EKG 01/21/19 hr is much faster Consults:Dr Mattson Reassessments/Times: Multiple throughout Blood pressure:Elevated - Referred to PCP - [place] to be Situational. Disposition:Hospitalization Differentials: Infectious, Reactive Airway Disease, Pneumonia, Pneumothorax, COPD, CHF, ACS, Pulmonary Embolism, MSK, GI, Dissection, amongst other etiologies entertained. Medical Decision Makin yr old male with long history of copd, afib and chf amongst others arrives in severe respiratory distress. Hypoxic and severely dypneic. Immediately placed on bipap and not moving any air. Given continuous neb and IV solumedrol. Furthermore he is afib RVR on arrival requiring several rounds IV lopressor with HR coming down some. As patient came too a bit he became increasingly anxious and upset about mask over his face. Given IV ativan 0.5mg (x2) which did improve anxiety but did become a bit confused consistent with ativan in elderly. Blood cultures were obtained with normal wbc, normal lactic acid and no evidence infiltrate on CXR, thus will avoid broad spectrum abx, but as febrile will start doxy and defer further abx to hospitalist. Already had several days of azithro and prednisone. Impression: Acute Respriatory Failue with Hypoxia and Hypercapnia Acute exacerbation of chronic obstructive pulmonary disease Atrial fibrillation with rapid ventricular response Anxiety Critical Care Time: I have personally spent 45 minutes of critical care time in the direct management of this patient. Acute respiratory failure requiring BIPAP as well as AFIB RVR requiring IV Lopressor x2. This was a life/limb threatening event. This 45 minutes is in excess of all separately billable procedures. Fredi Franco MD Impression & Plan Acute respiratory failure with hypoxia and hypercapnia, Acute exacerbation of chronic obstructive pulmonary disease, Atrial fibrillation with rapid ventricular response, Anxiety Past Med/Surg History Social History Preferred Language: Montenegrin Communication Ability: Effective Sanitation Engineer Required: No Beliefs That Will Affect Care: None marital status: / Current Living Situation: Family Current Living Situation Comment: lives with son and DIL current occupational status: retired Feels Safe at Home: Yes Smoking Status: Former smoker Second Hand Exposure: No ; Hx Alcohol Use: No Hx Substance Use: No Results & Data Vital Signs Vital Signs - 24 hr 04/29/19 05:09 04/29/19 05:23 04/29/19 05:25 Temperature 37.9 C H Temperature Source Oral Pulse Rate 128 H Pulse Rate [Right Finger] 143 H 142 H Pulse Rhythm [Right Finger] Irregular Respiratory Rate 25 H 23 23 Respiratory Effort / Characteristics Spontaneous Labored Short of Breath Spontaneous Labored Short of Breath Spontaneous Labored Short of Breath Respiratory Depth Deep Deep Respiratory Pattern Tachypnea Tachypnea Blood Pressure Blood Pressure [Left Arm] 121/86 Blood Pressure Mean [Left Arm] 97 Blood Pressure Position [Left Arm] Lying Pulse Oximetry 97 100 100 Oxygen Delivery Method BiPAP BiPAP Fraction of Inspired Oxygen 40 60 60 SaO2/FiO2 Ratio 242 Sepsis New/Unexplained Change in Mental Status No Sepsis Action Taken by Nursing No Action Required 04/29/19 05:33 04/29/19 05:43 04/29/19 06:21 Temperature Temperature Source Pulse Rate 141 H 123 H Pulse Rate [Right Finger] 143 H Pulse Rhythm [Right Finger] Irregular Respiratory Rate 23 23 Respiratory Effort / Characteristics Spontaneous Labored Short of Breath Respiratory Depth Respiratory Pattern Tachypnea Blood Pressure 151/87 H Blood Pressure [Left Arm] 183/95 H Blood Pressure Mean [Left Arm] 124 Blood Pressure Position [Left Arm] Lying Pulse Oximetry 100 97 Oxygen Delivery Method BiPAP Fraction of Inspired Oxygen 40 SaO2/FiO2 Ratio Sepsis New/Unexplained Change in Mental Status Sepsis Action Taken by Nursing 04/29/19 06:22 04/29/19 06:26 Temperature Temperature Source Pulse Rate Pulse Rate [Right Finger] 112 H Pulse Rhythm [Right Finger] Respiratory Rate 28 H Respiratory Effort / Characteristics Spontaneous Labored Respiratory Depth Deep Respiratory Pattern Regular Blood Pressure Blood Pressure [Left Arm] 151/87 H Blood Pressure Mean [Left Arm] 108 Blood Pressure Position [Left Arm] Pulse Oximetry 99 99 Oxygen Delivery Method BiPAP BiPAP Fraction of Inspired Oxygen 40 40 SaO2/FiO2 Ratio 247 247 Sepsis New/Unexplained Change in Mental Status Sepsis Action Taken by Nursing Laboratory Data Result diagrams: 04/29/19 04:37 04/29/19 04:37 Lab Results 04/29/19 04/29/19 04/29/19 Range/Units 04:37 04:37 04:37 WBC 7.92 (4.8-10.8) K/uL RBC 4.26 L (4.7-6.1) M/uL Hgb 12.8 L (14.0-18.0) g/dL Hct 39.2 L (42-52) % MCV 92.0 (80-100) fL MCH 30.0 (25-34) pg MCHC 32.7 (32-36) g/dL RDW Std Deviation 47.1 H (36.4-46.3) fL RDW Coeff of Thierry 14.0 (11.5-14.5) % Plt Count 189 (130-400) K/uL MPV 9.9 (7.4-10.4) fL Immature Gran % (Auto) 0.4 % Neut % (Auto) 83.0 % Lymph % (Auto) 8.2 % [place] % (Auto) 8.1 % Eos % (Auto) 0.0 % Baso % (Auto) 0.3 % Immature Gran # (Auto) 0.03 H (0.00-0.02) K/uL Neut # (Auto) 6.58 H (1.4-6.5) K/uL Lymph # (Auto) 0.65 L (1.2-3.4) K/uL [place] # (Auto) 0.64 H (0.11-0.59) K/uL Eos # (Auto) 0.00 (0-0.5) K/uL Baso # (Auto) 0.02 (0-0.2) K/uL PT Cancelled INR Cancelled APTT (21.0-31.0) Seconds PTT Ratio VBG pH (7.36-7.41) VBG pCO2 (38-50) mmHg VBG pO2 mmHg VBG HCO3 mmol/L VBG O2 Saturation % VBG Base Excess mEq/L Barometric Pressure mm/Hg Sodium 134 L (136-145) mmol/L Potassium 4.1 (3.5-5.1) mmol/L Chloride 98 (98-107) mmol/L Carbon Dioxide 33 H (21-32) mmol/L Anion Gap 3.0 (3-11) BUN 21 H (7-18) mg/dl Creatinine 1.36 (0.6-1.4) mg/dl Est Cr Clr Drug Dosing 38.9 ml/min Est GFR ( Amer) 53.8 Est GFR (Non-Af Amer) 46.5 BUN/Creatinine Ratio 15.7 (10-20) Glucose 108 H (70-99) mg/dl Lactate (0.4-2.0) mmol/L Calcium 9.1 (8.5-10.1) mg/dl Magnesium 2.1 (1.8-2.4) mg/dl Total Bilirubin 0.6 (0.2-1) mg/dl Direct Bilirubin 0.2 (0-0.2) mg/dl AST 21 (15-37) U/L ALT 46 (12-78) U/L Alkaline Phosphatase 88 (45-117) U/L Troponin I 0.040 (0-0.045) ng/ml Total Protein 7.3 (6.4-8.2) gm/dl Albumin 3.5 (3.4-5.0) gm/dl Influenza Type A Ag (Neg) Influenza Type B Ag (Neg) 04/29/19 04/29/19 04/29/19 Range/Units 05:32 05:40 05:44 WBC (4.8-10.8) K/uL RBC (4.7-6.1) M/uL Hgb (14.0-18.0) g/dL Hct (42-52) % MCV (80-100) fL MCH (25-34) pg MCHC (32-36) g/dL RDW Std Deviation (36.4-46.3) fL RDW Coeff of Thierry (11.5-14.5) % Plt Count (130-400) K/uL MPV (7.4-10.4) fL Immature Gran % (Auto) % Neut % (Auto) % Lymph % (Auto) % [place] % (Auto) % Eos % (Auto) % Baso % (Auto) % Immature Gran # (Auto) (0.00-0.02) K/uL Neut # (Auto) (1.4-6.5) K/uL Lymph # (Auto) (1.2-3.4) K/uL [place] # (Auto) (0.11-0.59) K/uL Eos # (Auto) (0-0.5) K/uL Baso # (Auto) (0-0.2) K/uL PT INR APTT (21.0-31.0) Seconds PTT Ratio VBG pH 7.25 L (7.36-7.41) VBG pCO2 74 H (38-50) mmHg VBG pO2 43 mmHg VBG HCO3 32 mmol/L VBG O2 Saturation 70.9 % VBG Base Excess 2.0 mEq/L Barometric Pressure 739.5 mm/Hg Sodium (136-145) mmol/L Potassium (3.5-5.1) mmol/L Chloride (98-107) mmol/L Carbon Dioxide (21-32) mmol/L Anion Gap (3-11) BUN (7-18) mg/dl Creatinine (0.6-1.4) mg/dl Est Cr Clr Drug Dosing ml/min Est GFR ( Amer) Est GFR (Non-Af Amer) BUN/Creatinine Ratio (10-20) Glucose (70-99) mg/dl Lactate 1.2 (0.4-2.0) mmol/L Calcium (8.5-10.1) mg/dl Magnesium (1.8-2.4) mg/dl Total Bilirubin (0.2-1) mg/dl Direct Bilirubin (0-0.2) mg/dl AST (15-37) U/L ALT (12-78) U/L Alkaline Phosphatase (45-117) U/L Troponin I (0-0.045) ng/ml Total Protein (6.4-8.2) gm/dl Albumin (3.4-5.0) gm/dl Influenza Type A Ag Neg for Influ A (Neg) Influenza Type B Ag Neg for Influ B (Neg) 04/29/19 Range/Units 05:44 WBC (4.8-10.8) K/uL RBC (4.7-6.1) M/uL Hgb (14.0-18.0) g/dL Hct (42-52) % MCV (80-100) fL MCH (25-34) pg MCHC (32-36) g/dL RDW Std Deviation (36.4-46.3) fL RDW Coeff of Thierry (11.5-14.5) % Plt Count (130-400) K/uL MPV (7.4-10.4) fL Immature Gran % (Auto) % Neut % (Auto) % Lymph % (Auto) % [place] % (Auto) % Eos % (Auto) % Baso % (Auto) % Immature Gran # (Auto) (0.00-0.02) K/uL Neut # (Auto) (1.4-6.5) K/uL Lymph # (Auto) (1.2-3.4) K/uL [place] # (Auto) (0.11-0.59) K/uL Eos # (Auto) (0-0.5) K/uL Baso # (Auto) (0-0.2) K/uL PT 23.3 H INR 2.4 H APTT 33.1 H (21.0-31.0) Seconds PTT Ratio 1.2 VBG pH (7.36-7.41) VBG pCO2 (38-50) mmHg VBG pO2 mmHg VBG HCO3 mmol/L VBG O2 Saturation % VBG Base Excess mEq/L Barometric Pressure mm/Hg Sodium (136-145) mmol/L Potassium (3.5-5.1) mmol/L Chloride (98-107) mmol/L Carbon Dioxide (21-32) mmol/L Anion Gap (3-11) BUN (7-18) mg/dl Creatinine (0.6-1.4) mg/dl Est Cr Clr Drug Dosing ml/min Est GFR ( Amer) Est GFR (Non-Af Amer) BUN/Creatinine Ratio (10-20) Glucose (70-99) mg/dl Lactate (0.4-2.0) mmol/L Calcium (8.5-10.1) mg/dl Magnesium (1.8-2.4) mg/dl Total Bilirubin (0.2-1) mg/dl Direct Bilirubin (0-0.2) mg/dl AST (15-37) U/L ALT (12-78) U/L Alkaline Phosphatase (45-117) U/L Troponin I (0-0.045) ng/ml Total Protein (6.4-8.2) gm/dl Albumin (3.4-5.0) gm/dl Influenza Type A Ag (Neg) Influenza Type B Ag (Neg) Administered Medications Doxycycline Hyclate 100 mg/ (Dextrose) 110 mls @ 50 mls/hr IV NOW STA Stop: 04/29/19 08:07 Last Admin: 04/29/19 06:22 Dose: 50 mls/hr Documented by: [id number] Discontinued Medications Albuterol (Duoneb) 12 ml NEB ONE ONE Stop: 04/29/19 05:13 Last Admin: 04/29/19 05:23 Dose: 12 ml Documented by: [id number] Lorazepam (Ativan) 0.5 mg in 1 mls @ 1 mls/min IV NOW STA Stop: 04/29/19 05:33 Last Admin: 04/29/19 05:39 Dose: 1 mls/min Documented by: [id number] Lorazepam (Ativan) 0.5 mg in 1 mls @ 1 mls/min IV NOW STA Stop: 04/29/19 06:05 Last Admin: 04/29/19 06:21 Dose: 1 mls/min Documented by: [id number] Methylprednisolone (Solumedrol) 125 mg IV NOW STA Stop: 04/29/19 05:13 Last Admin: 04/29/19 05:39 Dose: 125 mg Documented by: [id number] Metoprolol Tartrate (Lopressor) 5 mg IV NOW STA Stop: 04/29/19 05:33 Last Admin: 04/29/19 05:42 Dose: 5 mg Documented by: [id number] Metoprolol Tartrate (Lopressor) 5 mg IV NOW STA Stop: 04/29/19 06:05 Last Admin: 04/29/19 06:21 Dose: 5 mg Documented by: [id number] Discharge Plan Visit Data Chief Complaint: Shortness of Breath/Dyspnea Stated Complaint: SHORT OF BREATH ED Provider: Fredi Franco Discharge Problem: Acute respiratory failure with hypoxia and hypercapnia, Acute exacerbation of chronic obstructive pulmonary disease, Atrial fibrillation with rapid ventricular response, Anxiety Forms Stand Alone Forms: My [facility] Prescriptions Prescriptions: No Action furosemide [Lasix] 40 mg tablet 40 mg PO DAILY PRN (Reason: WEIGHT GAIN) RF: 0 furosemide [Lasix] 40 mg tablet 40 mg PO QAM RF: 0 latanoprost [Xalatan] 0.005 % drops 1 drp OPB HS RF: 0 atorvastatin [Lipitor] 20 mg tablet 20 mg PO QAM RF: 0 prednisone 5 mg tablet 5 mg PO DAILY RF: 0 aspirin [Aspir-Low] 81 mg Tablet,Delayed Release (Dr/Ec) 81 mg PO QAM RF: 0 tamsulosin 0.4 mg capsule 0.4 mg PO DAILY RF: 0 ferrous sulfate 325 mg (65 mg iron) Tablet 325 mg PO QAM RF: 0 omeprazole 20 mg capsule,delayed release(DR/EC) 20 mg PO QAM RF: 0 levalbuterol HCl [Xopenex] 1.25 mg/3 mL solution for nebulization 1 dose Inhalation UD PRN (Reason: Shortness Of Breath) RF: 0 albuterol sulfate [Ventolin HFA] 90 mcg/actuation Hfa Aerosol Inhaler 2 puff INHALATION Q4 PRN (Reason: Wheezing) RF: 0 levothyroxine [Synthroid] 112 mcg tablet 112 mcg PO QAM RF: 0 metoprolol tartrate 25 mg Tablet 25 mg PO BID RF: 0 warfarin [Coumadin] 5 mg tablet 5 mg PO 4XWK RF: 0 polyethylene glycol 3350 [Miralax] 17 gram Powder In Packet 17 g PO QAM PRN (Reason: Constipation) RF: 0 docusate sodium [Colace] 100 mg Capsule 100 mg PO BID RF: 0 Trelegy Ellipta 100-62.5-25 mcg blister with device 1 puff inhalation QAM RF: 0 warfarin 2.5 mg Tablet 2.5 mg PO 3XWK RF: 0 cetirizine 10 mg Tablet 5 mg PO DAILY RF: 0 fluticasone propionate [Flonase Allergy Relief] 50 mcg/actuation [place],Suspension 2 spray INTRANASAL DAILY RF: 0 melatonin 1 mg Tablet 5 mg PO HS RF: 0 escitalopram oxalate [Lexapro] 5 mg Tablet 5 mg PO DAILY RF: 0 isosorbide mononitrate 30 mg tablet extended release 24 hr 30 mg PO QAM RF: 0 omega-3 fatty acids 1,000 mg Capsule 2,000 mg PO DAILY RF: 0 famotidine 20 mg Tablet 10 mg PO BID RF: 0 azithromycin 250 mg tablet 250 - 500 mg PO UD RF: 0 prednisone 20 mg tablet 0 mg PO UD RF: 0
[2019-04-29] MEDS ORDERED: METOPROLOL TARTRATE 1 MG/ML VIAL IV STA ×2 (05:32→06:04)
[2019-04-29] MEDS ORDERED: LORazepam 0.5 MG/1 ML VIAL IV STA ×2 (05:32→06:04)
[2019-04-29 05:42] LABS: Albumin Level 3.5 gm/dl (3.4-5.0); BUN Creatinine Ratio 15.7 (10-20); Bilirubin Direct 0.2 mg/dl (0-0.2); Calcium 9.1 mg/dl (8.5-10.1); Creatinine Clr Calc Pharmacy 38.9 ml/min; Est GFR (African American) 53.8; Est GFR (Non-African American) 46.5; Magnesium 2.1 mg/dl (1.8-2.4); Potassium 4.1 mmol/L (3.5-5.1)
[2019-04-29 05:47] LABS: Bilirubin,Total 0.6 mg/dl (0.2-1); Total Protein 7.3 gm/dl (6.4-8.2); Troponin I 0.04 ng/ml (0-0.045)
[2019-04-29 05:53] LABS: Oxygen Saturation VBG 70.9 %; pH VBG 7.25 (7.36-7.41)
[2019-04-29] MEDS ORDERED: DOXYCYCLINE HYCLATE 100 MG in DEXTROSE 5% 100 ML IV STA (05:56)
[2019-04-29 06:04] LABS: INR 2.4 (0.9-1.1); Partial Thromboplastin Ratio 1.2; Partial Thromboplastin Time 33.1 Seconds (21.0-31.0); Prothrombin Time 23.3 Seconds (9.0-12.0)
--- NOTE | 2019-04-29 06:33 | XRay Report ---
XR chest 1V portable HISTORY: 89 years-old Male SHOB acute shortness of breath COMPARISON: Chest radiograph 01/19/2019, CT abdomen and pelvis 05/17/2018, CTA chest 02/04/2016 TECHNIQUE: Portable AP view of the chest FINDINGS: Cardiac silhouette is mildly enlarged, unchanged. Prior median sternotomy. Calcified plaque of the th oracic aortic arch. Emphysema with chronic interstitial coarsening. No lobar airspace consolidation t ypical for pneumonia. No overt pulmonary edema. Ill-defined 1.5 cm nodular opacity overlying lateral left lung base suggest probable summation density. Degenerative changes of the shoulders and spine. IMPRESSION: 1. Emphysema and chronic fibrotic change redemonstrated. No definite acute process identified. ACT 112: Negative or not required by law. The above report was generated using voice recognition software. It may contain grammatical, syntax o r spelling errors. Electronically signed by: Carl Gonzalez M.D. 04/29/2019 6:32 AM
[2019-04-29] MEDS ORDERED: dilTIAZem HCl 5 MG/ML 5 ML VIAL IV STA (06:37)
[2019-04-29] MEDS: dilTIAZem HCL 125 MG in DEXTROSE 5% 100 ML IV SCH ×2 (07:09→08:42)
[2019-04-29] MEDS ORDERED: FUROSEMIDE 40 MG TAB PO PRN (08:14)
[2019-04-29] MEDS ORDERED: IPRATROPIUM BROMIDE NEB SOLN 0.02% 2.5 ML VIAL INH PRN (08:14)
[2019-04-29] MEDS ORDERED: XOPENEX/ATROVENT 1.25mg/0.5MG NEB COMBO NEB PRN (08:14)
[2019-04-29] MEDS ORDERED: ALBUTEROL HFA 8 GM INHALER INH PRN (08:14)
[2019-04-29] MEDS ORDERED: LEVALBUTEROL 1.25MG/0.5ML NEB INH PRN (08:14)
[2019-04-29] MEDS ORDERED: NITROGLYCERIN SL 0.4 MG/TAB TAB SL PRN (08:14)
[2019-04-29] MEDS ORDERED: POLYETHYLENE (MIRALAX) 17 GM PACK PO PRN (08:14)
[2019-04-29] MEDS ORDERED: XOPENEX/ATROVENT 1.25mg/0.5MG NEB COMBO NEB SCH (08:14)
[2019-04-29] MEDS ORDERED: ACETAMINOPHEN 325 MG TAB PO PRN (08:14)
[2019-04-29 08:35] LABS: Base Excess ABG 2.6 mEq/L (-9-1.8); HCO3 ABG 30 mmol/L (19-24); Oxygen Saturation ABG 97.5 % (90-95); PCO2 ABG 58 mmHg (35-46); PO2 ABG 105 mm/Hg (80-95); pH ABG 7.33 (7.35-7.45)
[2019-04-29 08:37] LABS: Allen Test Pos (Pos)
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
[2019-04-29] MEDS ORDERED: NON-FORMULARY MEDICATION (Fluticasone-Umeclidin-Vilanter [Trelegy Ellipta] 1 PUFFS) INH SCH (09:00)
[2019-04-29] MEDS ORDERED: predniSONE 5 MG TAB PO SCH (09:00)
[2019-04-29] MEDS: DOCUSATE SODIUM 100 MG CAP PO SCH ×2 (09:22→20:00)
[2019-04-29] MEDS: LEVOTHYROXINE SODIUM 112 MCG TABLET PO SCH (09:23)
[2019-04-29] MEDS: CETIRIZINE HCL 10 MG TABLET PO SCH (09:23)
[2019-04-29] MEDS: ASPIRIN 81 MG ECTAB PO SCH (09:23)
[2019-04-29] MEDS: FLUTICASONE PROPIONATE NA SPR 16 GM BTL SCH (09:23)
[2019-04-29] MEDS: FERROUS SULFATE 325 MG TAB PO SCH (09:23)
[2019-04-29] MEDS: TAMSULOSIN HCL 0.4 MG CAP PO SCH (09:23)
[2019-04-29] MEDS: cefTRIAXone SODIUM 2,000 MG in DEXTROSE 5% 50 ML IV SCH (09:24)
[2019-04-29] MEDS: OMEGA-3 (PURIFIED FISH OIL) 1 GM CAP PO SCH (09:24)
[2019-04-29] MEDS: FAMOTIDINE 10 MG TABLET PO SCH ×2 (09:24→19:59)
[2019-04-29] MEDS: PANTOprazole 40 MG TAB PO SCH (09:24)
[2019-04-29] MEDS: ATORVASTATIN 20 MG TAB PO SCH (09:24)
[2019-04-29 09:25] LABS: Influenza A virus by PCR Neg for Influ A (Neg); Influenza B virus by PCR Neg for Influ B (Neg)
--- NOTE | 2019-04-29 10:10 | Electrocardiogram Report ---
Test Reason : Blood Pressure : / mmHG Vent. Rate : 098 BPM Atrial Rate : 000 BPM P-R Int : 000 ms QRS Dur : 100 ms QT Int : 344 ms P-R-T Axes : 000 -58 073 degrees QTc Int : 439 ms Atrial fibrillation with premature ventricular or aberrantly conducted complexes Left axis deviation Abnormal ECG When compared with ECG of 29-APR-2019 05:46, HR has decreased by [address] depression in Anterolateral leads no longer present Confirmed by Manjeet Wesley ([id number]) on 04/29/2019 10:10:33 AM Referred By: REFERRED SELF Confirmed By:Manjeet Wesley
[2019-04-29] MEDS: IPRATROPIUM BROMIDE NEB SOLN 0.02% 2.5 ML VIAL INH SCH ×3 (12:46→19:01)
[2019-04-29] MEDS: LEVALBUTEROL 1.25MG/0.5ML NEB INH SCH ×3 (12:46→19:02)
[2019-04-29] MEDS: methylPREDNISolone 40 MG in SYRINGE 0 ML IV SCH ×2 (13:48→19:59)
[2019-04-29] MEDS: ISOSORBIDE MONO EXTENDED REL 30 MG TABCR PO SCH (13:49)
[2019-04-29] MEDS: FUROSEMIDE 40 MG TAB PO SCH (13:50)
[2019-04-29] MEDS: ESCITALOPRAM OXALATE 10 MG TAB PO SCH (13:51)
[2019-04-29] MEDS: METOPROLOL TARTRATE 25 MG TAB PO SCH ×2 (13:51→20:00)
[2019-04-29] MEDS: WARFARIN SOD 2.5 MG TAB PO SCH (15:20)
--- NOTE | 2019-04-29 17:03 | Hospitalist Progress Note ---
Date of Service April 29, 2019 Assessment & Plan (1) Acute exacerbation of chronic obstructive pulmonary disease: Admitted with the evaluation of COPD with respiratory failure Was on BiPAP following admission Condition improved as of yesterday and noted to have more confusion this morning Requiring nebulized bronchodilator plus intravenous Solu-Medrol and a small dose of Ativan for anxiety ABG did show improvement of CO2 We will continue current medications The son was updated Present on Admission?: Yes (2) Atrial fibrillation with rapid ventricular response: Noted to have RVR and required intravenous Cardizem drip Heart rate improved subsequently He is off the Cardizem drip now and has been on beta-kenney (3) CHF (congestive heart failure): Clinically has mild congestion Has been receiving his usual dose of diuretics from home We will give additional 40 mg intravenously today He got better (4) Acute renal failure superimposed on stage 3 chronic kidney disease: Kidney function remains stable (5) S/P aortic valve replacement with bioprosthetic valve: No acute issue Clinically much better today We will continue current treatment Try to avoid any BiPAP Subjective 04/29/2019 and 04/30/2019 The patient was seen and examined in telemetry unit in presence of velma He is off of BiPAP and has been doing much better Complains to have shortness of breath at rest with wheezing Alert awake and oriented and wants to eat 04/30/2019 Remains little drowsy this morning and required BiPAP ABG did not show any increased CO2 Patient remains very anxious and agitated at times-discussed with the son and he wants to try small dose of Ativan Denies any chest pain and/or palpitation Review of Systems Review of Systems: All systems reviewed and are unremarkable except as noted below Respiratory: + cough, + dyspnea, + dyspnea on exertion and + wheezing Neurologic: + confusion (Pleasantly confused this morning) Physical Exam Physical Exam: Lying in bed with moderate shortness of breath Constitutional: well developed, well nourished and + obese Eyes: PERRL, conjunctivae normal, anicteric sclerae ENMT: external ear and nose normal, oropharynx normal Neck: trachea midline, no thyromegaly Respiratory: + respiratory distress and + labored breathing Auscultation: + diminished lung sounds, + crackles (Bibasilar crackles) and + wheezes Cardiovascular: Rate/Rhythm: regular rate and regular rhythm Heart Sounds: no murmur Extremities: + edema (Trace edema bilaterally) Gastrointestinal (Abdomen): Inspection/Auscultation: abdomen normal to inspection and normal bowel sounds Percussion/Palpation: abdomen soft Musculoskeletal: No acute arthritis in any joints Neurologic: moves all extremities; no focal motor deficits Generally weak and lethargic Results & Data Vital Signs (Past 12 Hours) Vital Signs Temp Pulse Pulse Pulse Resp BP BP 04/29/19 16:05 84 04/29/19 15:55 36.4 C L 75 18 04/29/19 14:20 90 18 04/29/19 11:46 36.7 C 94 H 18 04/29/19 11:11 91 H 16 04/29/19 08:15 37.5 C 115 H 107 H 22 160/80 H 04/29/19 08:05 100 H 28 H 04/29/19 07:28 124 H 20 136/69 04/29/19 06:26 04/29/19 06:22 112 H 28 H 151/87 H 04/29/19 06:21 123 H 151/87 H 04/29/19 05:43 143 H 23 183/95 H 04/29/19 05:33 141 H 23 04/29/19 05:25 142 H 23 04/29/19 05:23 128 H 23 04/29/19 05:09 37.9 C H 143 H 25 H 121/86 BP Pulse Ox 04/29/19 16:05 04/29/19 15:55 114/62 95 04/29/19 14:20 91 04/29/19 11:46 144/71 H 94 04/29/19 11:11 97 04/29/19 08:15 100 04/29/19 08:05 94 04/29/19 07:28 99 04/29/19 06:26 99 04/29/19 06:22 99 04/29/19 06:21 04/29/19 05:43 97 04/29/19 05:33 100 04/29/19 05:25 100 04/29/19 05:23 100 04/29/19 05:09 97 Laboratory Results Short CBC 04/29/19 Range/Units 04:37 WBC 7.92 (4.8-10.8) K/uL Hgb 12.8 L (14.0-18.0) g/dL Hct 39.2 L (42-52) % Plt Count 189 (130-400) K/uL [facility] 04/29/19 04:37 Sodium 134 L Potassium 4.1 Chloride 98 Carbon Dioxide 33 H BUN 21 H Creatinine 1.36 Glucose 108 H Calcium 9.1 Cardiac Enzymes 04/29/19 Range/Units 04:37 Troponin I 0.040 (0-0.045) ng/ml Liver Function 04/29/19 Range/Units 04:37 Total Bilirubin 0.6 (0.2-1) mg/dl Direct Bilirubin 0.2 (0-0.2) mg/dl AST 21 (15-37) U/L ALT 46 (12-78) U/L Alkaline Phosphatase 88 (45-117) U/L Albumin 3.5 (3.4-5.0) gm/dl Short CBC 04/30/19 Range/Units 05:43 WBC 7.86 (4.8-10.8) K/uL Hgb 11.9 L (14.0-18.0) g/dL Hct 36.2 L (42-52) % Plt Count 176 (130-400) K/uL [facility] 04/30/19 05:43 Sodium 130 L Potassium 4.4 Chloride 95 L Carbon Dioxide 31 BUN 26 H Creatinine 1.22 Glucose 152 H Calcium 9.3 Medications Administered Current Inpatient Medications Acetaminophen (Tylenol) 650 mg PO Q4H PRN PRN Reason: Pain or Fever Stop: 05/29/19 08:13 Albuterol (Ventolin Hfa) 2 puffs INH Q4 PRN PRN Reason: Wheezing Stop: 05/29/19 08:13 Aspirin (Ecotrin Ectab) 81 mg PO [facility] Stop: 05/29/19 08:59 Last Admin: 04/30/19 07:55 Dose: 81 mg Documented by: Atorvastatin Calcium (Lipitor) [facility] Stop: 05/29/19 08:59 Last Admin: 04/30/19 07:56 Dose: 20 mg Documented by: Cetirizine HCl (Zyrtec) 5 mg PO DAILY [facility] Stop: 05/29/19 08:59 Last Admin: 04/30/19 07:54 Dose: 5 mg Documented by: Docusate Sodium (Colace) 100 mg PO BID [facility] Stop: 05/29/19 08:59 Last Admin: 04/30/19 07:53 Dose: 100 mg Documented by: Escitalopram Oxalate (Lexapro Tab) 10 mg PO DAILY [facility] Stop: 05/31/19 08:59 Famotidine (Pepcid) 10 mg PO BID [facility] Stop: 05/29/19 08:59 Last Admin: 04/30/19 07:55 Dose: 10 mg Documented by: Ferrous Sulfate (Feosol) 325 mg PO QAM [facility] Stop: 05/29/19 08:59 Last Admin: 04/30/19 07:55 Dose: 325 mg Documented by: Fish Oil ([place]-3 (Purified Fish Oil)) 2 gm PO DAILY [facility] Stop: 05/29/19 08:59 Last Admin: 04/30/19 07:54 Dose: 2 gm Documented by: Fluticasone Propionate (Flonase) 2 sprays NA DAILY [facility] Stop: 05/29/19 08:59 Last Admin: 04/30/19 07:55 Dose: 2 sprays Documented by: Furosemide (Lasix) 40 mg PO DAILY PRN PRN Reason: WEIGHT GAIN Stop: 05/29/19 08:13 Furosemide (Lasix) 40 mg PO QAM [facility] Stop: 05/29/19 08:59 Last Admin: 04/30/19 07:57 Dose: 40 mg Documented by: Ceftriaxone Sodium 2,000 mg/ (Dextrose) 70 mls @ 100 mls/hr IV DAILY [facility]; Protocol Stop: 05/06/19 08:59 Last Infusion: 04/30/19 08:46 Dose: Infused Documented by: Doxycycline Hyclate 100 mg/ (Dextrose) 110 mls @ 50 mls/hr IV BID [facility] Stop: 05/06/19 20:59 Last Infusion: 04/30/19 09:09 Dose: Infused Documented by: Methylprednisolone 40 mg/ (Syringe) 0.64 mls @ 1.5 mls/min IV TID [facility] Stop: 05/29/19 13:59 Last Admin: 04/30/19 13:45 Dose: 1.5 mls/min Documented by: Lorazepam (Ativan) 0.25 mg in 0.5 mls @ 0.5 mls/min IV Q4H PRN PRN Reason: Anxiety/Agitation Stop: 05/30/19 12:49 Last Admin: 04/30/19 13:04 Dose: 0.5 mls/min Documented by: Ipratropium [place] (Atrovent 0.02% 0.5mg/2.5ml) 0.5 mg INH Q6R [facility] Stop: 05/29/19 08:13 Last Admin: 04/30/19 13:10 Dose: 0.5 mg Documented by: Ipratropium [place] (Atrovent 0.02% 0.5mg/2.5ml) 0.5 mg INH Q2R PRN PRN Reason: Shortness Of Breath Or Wheezing Stop: 05/29/19 08:13 Isosorbide Mononitrate (Imdur Extended Rel) [facility] Stop: 05/29/19 08:59 Last Admin: 04/30/19 07:53 Dose: 30 mg Documented by: Latanoprost (Xalatan Oph) 1 drops OPB HS [facility] Stop: 05/29/19 20:59 Last Admin: 04/29/19 20:01 Dose: 1 drops Documented by: Levalbuterol HCl (Xopenex 1.25mg/0.5ml Neb) 1.25 mg INH Q6R [facility] Stop: 05/29/19 08:13 Last Admin: 04/30/19 13:09 Dose: 1.25 mg Documented by: Levalbuterol HCl (Xopenex 1.25mg/0.5ml Neb) 1.25 mg INH Q2R PRN PRN Reason: Shortness Of Breath Or Wheezing Stop: 05/29/19 08:13 Levothyroxine Sodium (Synthroid) 112 mcg PO DAILYBB [facility] Stop: 05/29/19 08:59 Last Admin: 04/30/19 05:25 Dose: 112 mcg Documented by: Metoprolol Tartrate (Lopressor) 25 mg PO BID [facility] Stop: 05/29/19 08:59 Last Admin: 04/30/19 07:53 Dose: 25 mg Documented by: Metoprolol Tartrate (Lopressor) 2.5 mg IV Q4 PRN PRN Reason: Tachycardia Stop: 05/30/19 03:59 Miscellaneous (Order Awaiting Action) 1 ea N/A QS [facility] Stop: 05/29/19 15:59 Nitroglycerin (Nitrostat) 0.4 mg SL UD PRN PRN Reason: Chest Pain Stop: 05/29/19 08:13 Pantoprazole Sodium (Protonix) 40 mg PO QAM [facility] Stop: 05/29/19 08:59 Last Admin: 04/30/19 07:57 Dose: 40 mg Documented by: Polyethylene Glycol (Miralax Powder Packet) 17 gm PO DAILY [facility] Stop: 05/30/19 08:59 Last Admin: 04/30/19 07:57 Dose: 17 gm Documented by: Tamsulosin HCl (Flomax) 0.4 mg PO DAILY [facility] Stop: 05/29/19 08:59 Last Admin: 04/30/19 07:54 Dose: 0.4 mg Documented by: Warfarin Sodium (Coumadin) 5 mg PO [id number] [facility] Stop: 05/30/19 15:59 Warfarin Sodium (Coumadin) 2.5 mg PO [id number] [facility] Stop: 05/29/19 15:59 Last Admin: 04/29/19 15:20 Dose: 2.5 mg Documented by: (1) CHF (congestive heart failure) Heart failure chronicity: unspecified Heart failure type: unspecified Qualified Code(s): I50.9 - Heart failure, unspecified (2) Acute renal failure superimposed on stage 3 chronic kidney disease Acute renal failure type: with acute tubular necrosis Qualified Code(s): N17.0 - Acute kidney failure with tubular necrosis; N18.3 - Chronic kidney disease, stage 3 (moderate)
[2019-04-29] MEDS: DOXYCYCLINE HYCLATE 100 MG in DEXTROSE 5% 100 ML IV SCH (19:59)
[2019-04-29] MEDS: LATANOPROST 0.005% OP SOLN 2.5 ML BTL OPB SCH (20:01)
[2019-04-29] MEDS ORDERED: NON-FORMULARY MEDICATION (Melatonin 5 MG) PO SCH (21:00)
[2019-04-30] MEDS: LEVALBUTEROL 1.25MG/0.5ML NEB INH SCH ×4 (01:22→19:28)
[2019-04-30] MEDS: IPRATROPIUM BROMIDE NEB SOLN 0.02% 2.5 ML VIAL INH SCH ×4 (01:22→19:28)
[2019-04-30] MEDS ORDERED: METOPROLOL TARTRATE 1 MG/ML VIAL IV PRN (01:57)
[2019-04-30] MEDS ORDERED: METOPROLOL TARTRATE 1 MG/ML VIAL IV STA (01:58)
[2019-04-30] MEDS ORDERED: cloNIDine HCL 0.1 MG TAB PO ONE (03:31)
[2019-04-30] MEDS: LEVOTHYROXINE SODIUM 112 MCG TABLET PO SCH (05:25)
[2019-04-30 06:03] LABS: Basophils # (auto) 0.01 K/uL (0-0.2); Basophils % (auto) 0.1 %; Hematocrit (blood only) 36.2 % (42-52); Hemoglobin 11.9 g/dL (14.0-18.0); Immature Granulocytes # (auto) 0.03 K/uL (0.00-0.02); Immature Granulocytes % (auto) 0.4 %; Lymphocytes # (auto) 0.54 K/uL (1.2-3.4); Lymphocytes % (auto) 6.9 %; Mean Corpuscular Hemoglobin 29.8 pg (25-34); Mean Corpuscular Hgb Conc 32.9 g/dL (32-36); Mean Corpuscular Volume 90.5 fL (80-100); Mean Platelet Volume 9.3 fL (7.4-10.4); Monocytes % (auto) 3.8 %; Neutrophils # (auto) 6.98 K/uL (1.4-6.5); Neutrophils % (auto) 88.8 %; Platelet Count 176 K/uL (130-400); RDW Coefficient of Variation 13.8 % (11.5-14.5); RDW Standard Deviation 45.7 fL (36.4-46.3); White Blood Count 7.86 K/uL (4.8-10.8)
[2019-04-30 06:38] LABS: BUN Creatinine Ratio 21.1 (10-20); Calcium 9.3 mg/dl (8.5-10.1); Creatinine Clr Calc Pharmacy 43.3 ml/min; Est GFR (African American) 61.4; Potassium 4.4 mmol/L (3.5-5.1)
[2019-04-30] MEDS: METOPROLOL TARTRATE 25 MG TAB PO SCH ×2 (07:53→21:15)
[2019-04-30] MEDS: ISOSORBIDE MONO EXTENDED REL 30 MG TABCR PO SCH (07:53)
[2019-04-30] MEDS: DOCUSATE SODIUM 100 MG CAP PO SCH ×2 (07:53→21:14)
[2019-04-30] MEDS: CETIRIZINE HCL 10 MG TABLET PO SCH (07:54)
[2019-04-30] MEDS: OMEGA-3 (PURIFIED FISH OIL) 1 GM CAP PO SCH (07:54)
[2019-04-30] MEDS: TAMSULOSIN HCL 0.4 MG CAP PO SCH (07:54)
[2019-04-30] MEDS: FERROUS SULFATE 325 MG TAB PO SCH (07:55)
[2019-04-30] MEDS: FAMOTIDINE 10 MG TABLET PO SCH ×2 (07:55→21:15)
[2019-04-30] MEDS: ASPIRIN 81 MG ECTAB PO SCH (07:55)
[2019-04-30] MEDS: FLUTICASONE PROPIONATE NA SPR 16 GM BTL SCH (07:55)
[2019-04-30] MEDS: ESCITALOPRAM OXALATE 10 MG TAB PO SCH (07:56)
[2019-04-30] MEDS: ATORVASTATIN 20 MG TAB PO SCH (07:56)
[2019-04-30] MEDS: PANTOprazole 40 MG TAB PO SCH (07:57)
[2019-04-30] MEDS: POLYETHYLENE (MIRALAX) 17 GM PACK PO SCH (07:57)
[2019-04-30] MEDS: FUROSEMIDE 40 MG TAB PO SCH (07:57)
[2019-04-30] MEDS: methylPREDNISolone 40 MG in SYRINGE 0 ML IV SCH ×3 (07:58→21:13)
[2019-04-30] MEDS: DOXYCYCLINE HYCLATE 100 MG in DEXTROSE 5% 100 ML IV SCH ×2 (08:00→21:22)
[2019-04-30] MEDS: cefTRIAXone SODIUM 2,000 MG in DEXTROSE 5% 50 ML IV SCH (08:00)
--- NOTE | 2019-04-30 10:39 | Electrocardiogram Report ---
Test Reason : Blood Pressure : / mmHG Vent. Rate : 110 BPM Atrial Rate : 000 BPM P-R Int : 000 ms QRS Dur : 098 ms QT Int : 328 ms P-R-T Axes : 000 -49 063 degrees QTc Int : 443 ms Atrial fibrillation with rapid ventricular response Left axis deviation Abnormal ECG When compared with ECG of 29-APR-2019 08:29, No significant change was found Confirmed by Andrea Ryna ([id number] on 04/30/2019 10:38:54 AM Referred By: REFERRED SELF Confirmed By:Andrea Ryan
[2019-04-30] MEDS ORDERED: LORazepam 0.5 MG TAB PO PRN (10:49)
[2019-04-30] MEDS ORDERED: LORazepam 0.25 MG/0.5 ML VIAL IV PRN (12:50)
[2019-04-30] MEDS ORDERED: FUROSEMIDE 40 MG in SYRINGE 0 ML IV ONE (13:00)
[2019-04-30 13:28] LABS: Base Excess ABG 2.6 mEq/L (-9-1.8); HCO3 ABG 28 mmol/L (19-24); Oxygen Saturation ABG 97.3 % (90-95); PCO2 ABG 48 mmHg (35-46); PO2 ABG 95 mmHg (80-95); pH ABG 7.39 (7.35-7.45)
[2019-04-30 13:29] LABS: Allen Test Pos (Pos)
[2019-04-30] MEDS: WARFARIN SOD 5 MG TAB PO SCH (16:51)
[2019-04-30] MEDS: LATANOPROST 0.005% OP SOLN 2.5 ML BTL OPB SCH (21:23)
[2019-05-01] MEDS: IPRATROPIUM BROMIDE NEB SOLN 0.02% 2.5 ML VIAL INH SCH ×4 (01:00→19:50)
[2019-05-01] MEDS: LEVALBUTEROL 1.25MG/0.5ML NEB INH SCH ×4 (01:00→19:50)
[2019-05-01] MEDS: LEVOTHYROXINE SODIUM 112 MCG TABLET PO SCH (05:31)
[2019-05-01 07:12] LABS: BUN Creatinine Ratio 27.3 (10-20); Calcium 9.4 mg/dl (8.5-10.1); Creatinine Clr Calc Pharmacy 45.9 ml/min; Est GFR (African American) 65.9; Est GFR (Non-African American) 56.9; Magnesium 2.1 mg/dl (1.8-2.4); Potassium 4.2 mmol/L (3.5-5.1)
[2019-05-01] MEDS: ISOSORBIDE MONO EXTENDED REL 30 MG TABCR PO SCH (07:56)
[2019-05-01] MEDS: FLUTICASONE PROPIONATE NA SPR 16 GM BTL SCH (07:56)
[2019-05-01] MEDS: DOCUSATE SODIUM 100 MG CAP PO SCH ×2 (07:56→20:25)
[2019-05-01] MEDS: methylPREDNISolone 40 MG in SYRINGE 0 ML IV SCH ×2 (07:56→13:27)
[2019-05-01] MEDS: METOPROLOL TARTRATE 25 MG TAB PO SCH ×2 (07:56→20:25)
[2019-05-01] MEDS: ATORVASTATIN 20 MG TAB PO SCH (07:56)
[2019-05-01] MEDS: CETIRIZINE HCL 10 MG TABLET PO SCH (07:57)
[2019-05-01] MEDS: FUROSEMIDE 40 MG TAB PO SCH (07:57)
[2019-05-01] MEDS: FAMOTIDINE 10 MG TABLET PO SCH ×2 (07:57→20:26)
[2019-05-01] MEDS: ASPIRIN 81 MG ECTAB PO SCH (07:57)
[2019-05-01] MEDS: TAMSULOSIN HCL 0.4 MG CAP PO SCH (07:57)
[2019-05-01] MEDS: PANTOprazole 40 MG TAB PO SCH (07:58)
[2019-05-01] MEDS: FERROUS SULFATE 325 MG TAB PO SCH (07:58)
[2019-05-01] MEDS: POLYETHYLENE (MIRALAX) 17 GM PACK PO SCH (07:58)
[2019-05-01] MEDS: OMEGA-3 (PURIFIED FISH OIL) 1 GM CAP PO SCH (07:58)
[2019-05-01] MEDS: ESCITALOPRAM OXALATE 10 MG TAB PO SCH (07:58)
[2019-05-01] MEDS: cefTRIAXone SODIUM 2,000 MG in DEXTROSE 5% 50 ML IV SCH (08:00)
[2019-05-01] MEDS: DOXYCYCLINE HYCLATE 100 MG in DEXTROSE 5% 100 ML IV SCH (08:00)
[2019-05-01] MEDS ORDERED: MAGNESIUM SULFATE / D5W 1 GM/100 ML BAG IV ONE ×2 (09:45→21:45)
--- NOTE | 2019-05-01 11:35 | Electrocardiogram Report ---
Test Reason : Blood Pressure : / mmHG Vent. Rate : 100 BPM Atrial Rate : 000 BPM P-R Int : 000 ms QRS Dur : 098 ms QT Int : 358 ms P-R-T Axes : 000 -55 064 degrees QTc Int : 461 ms Atrial fibrillation Left axis deviation Abnormal ECG When compared with ECG of 30-APR-2019 06:44, No significant change was found Confirmed by Manjeet Wesley ([id number] on 05/01/2019 11:35:54 AM Referred By: REFERRED SELF Confirmed By:Manjeet Wesley
--- NOTE | 2019-05-01 15:19 | Hospitalist Progress Note ---
Date of Service May 01, 2019 Assessment & Plan (1) Acute exacerbation of chronic obstructive pulmonary disease: Possible related to bronchitis Admitted with the evaluation of COPD with respiratory failure CXR showed no acute finding Was starting on BiPAP following admission Continue IV Rocephin and doxycycline Will change IV solumedrol to prednisone Continue neb and oxygen supplement Clinically improved (2) Atrial fibrillation with rapid ventricular response: Present on admission with Afib with RVR and required intravenous Cardizem drip Cardizem was discontinued Heart rate control on metoprolol 25 mg BID Continue monitor (3) CHF (congestive heart failure): Clinically has mild congestion Lasix IV 40mgx1 given yesterday Continue home dose lasix Clinically improved (4) Acute renal failure superimposed on stage 3 chronic kidney disease: Kidney function remains stable (5) S/P aortic valve replacement with bioprosthetic valve: No acute issue CODE STATUS DNI/DNR Disposition Will discharge tomorrow Subjective Pt was seen and examined Lying in bed with no distress with son and daughter in law at bedside Pt said that he feels much better Family said that he is looking much better today Denies any chest pain, palpitation, dizziness and SOB Physical Exam Physical Exam: General- No acute distress Head- atraumatic Eyes- PERRL, EOMI, ENT- oropharynx clear Neck- supple, no JVD Lungs- clear to auscultation Heart- no murmur Abdomen- normal bowel sounds, soft, nontender Extremities- no calf tenderness Neuro- alert, oriented x 3; PERRL, EOMI; no facial palsy; no dysarthria Skin- warm & dry Results & Data Vital Signs (Past 12 Hours) Vital Signs Temp Pulse Pulse Resp BP Pulse Ox 05/01/19 13:09 68 20 95 05/01/19 12:16 116/86 05/01/19 11:00 36.3 C L 90 16 155/73 H 96 05/01/19 07:19 80 20 95 05/01/19 07:00 36.8 C 88 20 L 20 188/93 H 91 05/01/19 03:54 36.8 C 75 18 189/97 H 96 (1) CHF (congestive heart failure) Heart failure chronicity: unspecified Heart failure type: unspecified Qualified Code(s): I50.9 - Heart failure, unspecified (2) Acute renal failure superimposed on stage 3 chronic kidney disease Acute renal failure type: with acute tubular necrosis Qualified Code(s): N17.0 - Acute kidney failure with tubular necrosis; N18.3 - Chronic kidney disease, stage 3 (moderate)
[2019-05-01 17:21] LABS: Prothrombin Time 47.2 Seconds (9.0-12.0)
[2019-05-01 17:30] LABS: INR 5.2 (0.9-1.1)
[2019-05-01] MEDS: WARFARIN SOD 2.5 MG TAB PO SCH (17:33)
[2019-05-01] MEDS ORDERED: FUROSEMIDE 20 MG in SYRINGE 0 ML IV ONE (18:00)
[2019-05-01] MEDS: DOXYCYCLINE HYCLATE 100 MG CAP PO SCH (20:26)
[2019-05-01] MEDS: LATANOPROST 0.005% OP SOLN 2.5 ML BTL OPB SCH (20:26)
--- NOTE | 2019-05-01 20:49 | XRay Report ---
XR chest 1V portable CLINICAL HISTORY: Respiratory distress COMPARISON STUDY: 04/29/2019 FINDINGS: There are postsurgical changes of a midline sternotomy. The heart is mildly enlarged. There is chronic interstitial thickening similar to the preceding study. There is no lobar consolidation.[ There are no pleural effusions. IMPRESSION: 1. Emphysema and chronic interstitial thickening similar to the preceding study. 2. No evidence of parenchymal consolidation ACT 112: Negative or not required by law. Electronically signed by: Catarino Garcia M.D. 05/01/2019 8:48 PM
[2019-05-01 21:05] LABS: Base Excess ABG 5.5 mEq/L (-9-1.8); HCO3 ABG 31 mmol/L (19-24); Oxygen Saturation ABG 95.9 % (90-95); PCO2 ABG 50 mmHg (35-46); PO2 ABG 79 mmHg (80-95); pH ABG 7.41 (7.35-7.45)
[2019-05-01 21:10] LABS: Allen Test Pos (Pos)
[2019-05-01 21:16] LABS: BUN Creatinine Ratio 23.5 (10-20); Calcium 9.2 mg/dl (8.5-10.1); Creatinine Clr Calc Pharmacy 33.8 ml/min; Est GFR (African American) 45.6; Est GFR (Non-African American) 39.4; Magnesium 1.9 mg/dl (1.8-2.4); Potassium 4.4 mmol/L (3.5-5.1)
[2019-05-01 21:19] LABS: Prothrombin Time 47.3 Seconds (9.0-12.0)
--- NOTE | 2019-05-01 21:24 | CT Scan Report ---
CT head/brain wo con CLINICAL HISTORY: Acute change in mental status COMPARISON STUDY: June 09, 2017 TECHNIQUE: Axial CT of the brain is performed from the vertex to the skull base. IV contrast was not administered for this examination. A dose lowering technique was utilized adhering to the principles of ALARA. CT DOSE: 537.48 mGy.cm FINDINGS: No intra or extra-axial mass lesions are visualized. There is no CT evidence of acute cortical infarc tion. There is no evidence of midline shift. There is no acute hemorrhage. No calvarial fractures ar e visualized. There are moderate white matter hypodensities likely on a small vessel basis. There is no evidence of pathologic ventricular dilatation. There is a left inferior mastoid effusion. There is a right frontal scalp nodule, likely representing a sebaceous cyst. IMPRESSION: 1. No acute intracranial findings 2. Small left mastoid effusion 3. Right frontal scalp nodule likely representing a sebaceous cyst ACT 112: Negative or not required by law. Electronically signed by: Catarino Garcia M.D. 05/01/2019 9:22 PM
--- NOTE | 2019-05-01 21:24 | Communication Note ---
Date of Service: May 01, 2019 Patient noted to be more disoriented than usual as per RN. sodium 131 Serum creatinine 1.56 AP Encephalopathy Secondary to worsening hyponatremia, ARF possible overdiuresis Baseline UA Hold Lasix for now IVF Will relay to AM provider.
[2019-05-01] MEDS ORDERED: SODIUM CHLORIDE 0.9% 500 ML IV ONE (21:25)
[2019-05-01 21:28] LABS: INR 5.2 (0.9-1.1)
[2019-05-01] MEDS ORDERED: methylPREDNISolone 20 MG in SYRINGE 0 ML IV ONE (21:30)
[2019-05-01] MEDS ORDERED: PHYTONADIONE 5 MG TAB PO STA (23:11)
[2019-05-02 00:32] LABS: Appearance Urine Clear (Clear); Bilirubin Urine Negative (Negative); Blood Urine Negative (Negative); Color Urine Yellow; Glucose Urine UA Negative (Negative); Ketones Urine Negative (Negative); Leukocyte Esterase Urine Negative (Negative); Nitrite Urine Negative (Negative); Protein Urine Negative (Negative); Specific Gravity Urine 1.009 (1.000-1.030); Urobilinogen Urine Negative (Negative)
[2019-05-02] MEDS: IPRATROPIUM BROMIDE NEB SOLN 0.02% 2.5 ML VIAL INH SCH ×4 (00:43→19:16)
[2019-05-02] MEDS: LEVALBUTEROL 1.25MG/0.5ML NEB INH SCH ×4 (00:43→19:16)
[2019-05-02] MEDS: LEVOTHYROXINE SODIUM 112 MCG TABLET PO SCH (06:06)
[2019-05-02] MEDS: cefTRIAXone SODIUM 2,000 MG in DEXTROSE 5% 50 ML IV SCH (07:53)
[2019-05-02] MEDS: METOPROLOL TARTRATE 25 MG TAB PO SCH (07:53)
[2019-05-02] MEDS: ISOSORBIDE MONO EXTENDED REL 30 MG TABCR PO SCH (07:54)
[2019-05-02] MEDS: ESCITALOPRAM OXALATE 10 MG TAB PO SCH (07:54)
[2019-05-02] MEDS: PANTOprazole 40 MG TAB PO SCH (07:54)
[2019-05-02] MEDS: ATORVASTATIN 20 MG TAB PO SCH (07:54)
[2019-05-02] MEDS: DOXYCYCLINE HYCLATE 100 MG CAP PO SCH ×2 (07:54→20:41)
[2019-05-02] MEDS: DOCUSATE SODIUM 100 MG CAP PO SCH ×2 (07:54→20:41)
[2019-05-02] MEDS: FAMOTIDINE 10 MG TABLET PO SCH ×2 (07:54→20:41)
[2019-05-02] MEDS: FERROUS SULFATE 325 MG TAB PO SCH (07:54)
[2019-05-02] MEDS: ASPIRIN 81 MG ECTAB PO SCH (07:55)
[2019-05-02] MEDS: TAMSULOSIN HCL 0.4 MG CAP PO SCH (07:55)
[2019-05-02] MEDS: CETIRIZINE HCL 10 MG TABLET PO SCH (07:55)
[2019-05-02] MEDS: OMEGA-3 (PURIFIED FISH OIL) 1 GM CAP PO SCH (07:55)
[2019-05-02] MEDS: POLYETHYLENE (MIRALAX) 17 GM PACK PO SCH (07:56)
[2019-05-02] MEDS: FLUTICASONE PROPIONATE NA SPR 16 GM BTL SCH (07:56)
[2019-05-02] MEDS: predniSONE 20 MG TAB PO SCH (07:56)
[2019-05-02 08:34] LABS: INR 3.4 (0.9-1.1); Prothrombin Time 31.8 Seconds (9.0-12.0)
[2019-05-02] MEDS ORDERED: METOPROLOL TARTRATE 25 MG TAB PO ONE (09:37)
[2019-05-02] MEDS: WARFARIN SOD 5 MG TAB PO SCH (15:14)
--- NOTE | 2019-05-02 19:37 | Hospitalist Progress Note ---
Date of Service May 02, 2019 Assessment & Plan (1) Acute exacerbation of chronic obstructive pulmonary disease: Possible related to bronchitis Admitted with the evaluation of COPD with respiratory failure CXR showed no evidence of parenchymal consolidation Was starting on BiPAP following admission Continue IV Rocephin and doxycycline IV solumedrol changed to prednisone Continue neb and oxygen supplement Clinically improved (2) Atrial fibrillation with rapid ventricular response: Present on admission with Afib with RVR and required intravenous Cardizem drip Cardizem was discontinued Heart rate control on metoprolol 25 mg BID INR 3.4 today, will resume coumadin Continue monitor (3) CHF (congestive heart failure): Clinically has mild congestion Will hold lasix for now due to elevate creatinine to 1.5 Clinically improved stable (4) Acute renal failure superimposed on stage 3 chronic kidney disease: Creatinine increased to 1.5 lasix on hold Monitor BMP (5) S/P aortic valve replacement with bioprosthetic valve: No acute issue CODE STATUS DNI/DNR Disposition Will discharge once medically stable Subjective Pt was seen and examined Lying in bed with no distress He was walking around with nurse and son Denies any chest pain, palpitation and SOB Physical Exam Physical Exam: General- No acute distress Head- atraumatic Eyes- PERRL, EOMI, ENT- oropharynx clear Neck- supple, no JVD Lungs- +faint wheezing Heart- no murmur Abdomen- normal bowel sounds, soft, nontender Extremities- no calf tenderness Neuro- alert, oriented x 3; PERRL, EOMI; no facial palsy; no dysarthria Skin- warm & dry Results & Data Vital Signs (Past 12 Hours) Vital Signs Temp Pulse Pulse Resp BP Pulse Ox 05/02/19 19:16 92 H 18 97 05/02/19 18:47 36.6 C 89 18 173/80 H 95 05/02/19 16:15 85 05/02/19 16:01 36.4 C L 92 H 18 128/77 93 05/02/19 13:19 88 18 93 05/02/19 10:59 36.7 C 90 19 134/76 95 05/02/19 10:56 140/80 (1) CHF (congestive heart failure) Heart failure chronicity: unspecified Heart failure type: unspecified Qualified Code(s): I50.9 - Heart failure, unspecified (2) Acute renal failure superimposed on stage 3 chronic kidney disease Acute renal failure type: with acute tubular necrosis Qualified Code(s): N17.0 - Acute kidney failure with tubular necrosis; N18.3 - Chronic kidney disease, stage 3 (moderate)
[2019-05-02] MEDS ORDERED: OLANZapine 10 MG/2.1 ML SDV IM PRN (19:56)
[2019-05-02] MEDS ORDERED: METOPROLOL TARTRATE 1 MG/ML VIAL IV STA (19:59)
--- NOTE | 2019-05-02 20:13 | XRay Report ---
XR chest 1V portable HISTORY: 89 years-old Male sob acute shortness of breath COMPARISON: Chest radiograph 05/01/2019 TECHNIQUE: Portable AP view of the chest FINDINGS: Cardiac silhouette is enlarged. Prior median sternotomy. Emphysema with chronic interstitial scarring . No pneumothorax, pleural effusion or overt pulmonary edema. Degenerative changes of the shoulders a nd spine. Calcified plaque of the thoracic aortic arch. IMPRESSION: 1. Emphysema and chronic fibrotic changes without acute process. 2. Cardiomegaly. ACT 112: Negative or not required by law. The above report was generated using voice recognition software. It may contain grammatical, syntax o r spelling errors. Electronically signed by: Carl Gonzalez M.D. 05/02/2019 8:11 PM
[2019-05-02] MEDS ORDERED: methylPREDNISolone 20 MG in SYRINGE 0 ML IV ONE (20:15)
[2019-05-02] MEDS: MAGNESIUM SULFATE / D5W 1 GM/100 ML BAG IV SCH ×2 (20:42→21:35)
[2019-05-02] MEDS: guaiFENesin 200 MG TAB PO SCH (20:42)
[2019-05-02] MEDS: LATANOPROST 0.005% OP SOLN 2.5 ML BTL OPB SCH (20:42)
[2019-05-02 20:58] LABS: Base Excess ABG 8.5 mEq/L (-9-1.8); HCO3 ABG 34 mmol/L (19-24); PCO2 ABG 51 mmHg (35-46); PO2 ABG 109 mmHg (80-95); pH ABG 7.44 (7.35-7.45)
[2019-05-02 20:59] LABS: Allen Test POS (Pos)
[2019-05-02] MEDS ORDERED: METOPROLOL TARTRATE 25 MG TAB PO SCH (21:00)
[2019-05-02 21:04] LABS: Creatinine Clr Calc Pharmacy 36.2 ml/min; Est GFR (African American) 49.8; Magnesium 2.1 mg/dl (1.8-2.4); Potassium 4.4 mmol/L (3.5-5.1)
[2019-05-02] MEDS ORDERED: SODIUM CHLORIDE 0.9% 500 ML IV ONE (21:30)
[2019-05-03] MEDS: LEVALBUTEROL 1.25MG/0.5ML NEB INH SCH ×4 (00:22→19:00)
[2019-05-03] MEDS: IPRATROPIUM BROMIDE NEB SOLN 0.02% 2.5 ML VIAL INH SCH ×4 (00:23→19:00)
[2019-05-03] MEDS: guaiFENesin 200 MG TAB PO SCH ×3 (06:12→20:07)
[2019-05-03] MEDS: LEVOTHYROXINE SODIUM 112 MCG TABLET PO SCH (06:12)
[2019-05-03 07:07] LABS: INR 1.4 (0.9-1.1); Prothrombin Time 14.4 Seconds (9.0-12.0)
[2019-05-03 07:31] LABS: BUN Creatinine Ratio 24.2 (10-20); Calcium 8.8 mg/dl (8.5-10.1); Creatinine Clr Calc Pharmacy 44.7 ml/min; Est GFR (African American) 64.6; Est GFR (Non-African American) 55.7; Potassium 4.4 mmol/L (3.5-5.1)
[2019-05-03] MEDS: ISOSORBIDE MONO EXTENDED REL 30 MG TABCR PO SCH (07:47)
[2019-05-03] MEDS: METOPROLOL TARTRATE 50 MG TAB PO SCH ×2 (07:47→20:04)
[2019-05-03] MEDS: CETIRIZINE HCL 10 MG TABLET PO SCH (07:48)
[2019-05-03] MEDS: OMEGA-3 (PURIFIED FISH OIL) 1 GM CAP PO SCH (07:49)
[2019-05-03] MEDS: predniSONE 20 MG TAB PO SCH (07:50)
[2019-05-03] MEDS: FAMOTIDINE 10 MG TABLET PO SCH ×2 (07:50→20:07)
[2019-05-03] MEDS: DOXYCYCLINE HYCLATE 100 MG CAP PO SCH ×2 (07:50→20:06)
[2019-05-03] MEDS: ASPIRIN 81 MG ECTAB PO SCH (07:51)
[2019-05-03] MEDS: FERROUS SULFATE 325 MG TAB PO SCH (07:51)
[2019-05-03] MEDS: TAMSULOSIN HCL 0.4 MG CAP PO SCH (07:51)
[2019-05-03] MEDS: ATORVASTATIN 20 MG TAB PO SCH (07:52)
[2019-05-03] MEDS: DOCUSATE SODIUM 100 MG CAP PO SCH ×2 (07:52→20:04)
[2019-05-03] MEDS: PANTOprazole 40 MG TAB PO SCH (07:52)
[2019-05-03] MEDS: ESCITALOPRAM OXALATE 10 MG TAB PO SCH (07:52)
[2019-05-03] MEDS: POLYETHYLENE (MIRALAX) 17 GM PACK PO SCH (07:53)
[2019-05-03] MEDS: FLUTICASONE PROPIONATE NA SPR 16 GM BTL SCH (07:54)
[2019-05-03] MEDS: cefTRIAXone SODIUM 2,000 MG in DEXTROSE 5% 50 ML IV SCH (08:49)
[2019-05-03] MEDS ORDERED: METOPROLOL TARTRATE 25 MG TAB PO SCH (09:00)
[2019-05-03] MEDS: WARFARIN SOD 2.5 MG TAB PO SCH (16:39)
--- NOTE | 2019-05-03 19:38 | Hospitalist Progress Note ---
Date of Service May 03, 2019 Assessment & Plan (1) Acute exacerbation of chronic obstructive pulmonary disease: Possible related to bronchitis Admitted with the evaluation of COPD with respiratory failure CXR showed no evidence of parenchymal consolidation Was starting on BiPAP following admission Continue IV Rocephin and doxycycline IV solumedrol changed to prednisone Continue prednisone Continue neb and oxygen supplement Clinically improved (2) Atrial fibrillation with rapid ventricular response: Present on admission with Afib with RVR and required intravenous Cardizem drip Cardizem was discontinued Metoprolol increased to 50 mg BID Rate controlled INR 1.4 today Continue coumadin Continue monitor (3) CHF (congestive heart failure): Clinically has mild congestion Lasix was on hold due to elevate creatinine to 1.5 Will resume in am Clinically improved stable (4) Acute renal failure superimposed on stage 3 chronic kidney disease: Creatinine increased to 1.5 Creatinine back to 1.1 Will resume lasix in am Monitor BMP (5) S/P aortic valve replacement with bioprosthetic valve: No acute issue CODE STATUS DNI/DNR Disposition waiting for placement to rehab Subjective Pt was seen and examined Lying in bed with no distress Breathing improved Son said that his dad is very weak He said that before admitting to the hospital he was able to walk without assistance now his unsteady and get tired easily Son would like him to go to rehab Denies any chest pain, palpitation and SOB Physical Exam Physical Exam: General- No acute distress Head- atraumatic Eyes- PERRL, EOMI, ENT- oropharynx clear Neck- supple, no JVD Lungs- diminished BS Heart- no murmur Abdomen- normal bowel sounds, soft, nontender Extremities- no calf tenderness Neuro- alert, oriented x 3; PERRL, EOMI; no facial palsy; no dysarthria Skin- warm & dry Results & Data Vital Signs (Past 12 Hours) Vital Signs Temp Pulse Pulse Resp BP BP Pulse Ox 05/03/19 15:06 36.6 C 86 18 135/79 100 05/03/19 14:51 88 20 95 05/03/19 14:30 68 05/03/19 13:44 05/03/19 11:28 36.5 C 84 18 138/71 97 05/03/19 08:00 82 Pulse Ox Pulse Ox Pulse Ox 05/03/19 15:06 05/03/19 14:51 05/03/19 14:30 05/03/19 13:44 91 95 88 L 05/03/19 11:28 05/03/19 08:00 (1) CHF (congestive heart failure) Heart failure chronicity: unspecified Heart failure type: unspecified Qualified Code(s): I50.9 - Heart failure, unspecified (2) Acute renal failure superimposed on stage 3 chronic kidney disease Acute renal failure type: with acute tubular necrosis Qualified Code(s): N17.0 - Acute kidney failure with tubular necrosis; N18.3 - Chronic kidney disease, stage 3 (moderate)
[2019-05-03] MEDS: LATANOPROST 0.005% OP SOLN 2.5 ML BTL OPB SCH (20:07)
[2019-05-04] MEDS: LEVALBUTEROL 1.25MG/0.5ML NEB INH SCH ×5 (01:02→19:15)
[2019-05-04] MEDS: IPRATROPIUM BROMIDE NEB SOLN 0.02% 2.5 ML VIAL INH SCH ×5 (01:02→19:15)
[2019-05-04] MEDS: guaiFENesin 200 MG TAB PO SCH ×3 (06:09→19:46)
[2019-05-04] MEDS: LEVOTHYROXINE SODIUM 112 MCG TABLET PO SCH (06:09)
[2019-05-04 06:54] LABS: INR 1.3 (0.9-1.1); Prothrombin Time 13.2 Seconds (9.0-12.0)
[2019-05-04] MEDS: ASPIRIN 81 MG ECTAB PO SCH (08:09)
[2019-05-04] MEDS: DOXYCYCLINE HYCLATE 100 MG CAP PO SCH ×2 (08:09→19:47)
[2019-05-04] MEDS: PANTOprazole 40 MG TAB PO SCH (08:10)
[2019-05-04] MEDS: OMEGA-3 (PURIFIED FISH OIL) 1 GM CAP PO SCH (08:10)
[2019-05-04] MEDS: POLYETHYLENE (MIRALAX) 17 GM PACK PO SCH (08:11)
[2019-05-04] MEDS: FAMOTIDINE 10 MG TABLET PO SCH ×2 (08:11→19:46)
[2019-05-04] MEDS: METOPROLOL TARTRATE 50 MG TAB PO SCH ×2 (08:11→19:46)
[2019-05-04] MEDS: ATORVASTATIN 20 MG TAB PO SCH (08:12)
[2019-05-04] MEDS: predniSONE 20 MG TAB PO SCH (08:12)
[2019-05-04] MEDS: ESCITALOPRAM OXALATE 10 MG TAB PO SCH (08:12)
[2019-05-04] MEDS: TAMSULOSIN HCL 0.4 MG CAP PO SCH (08:13)
[2019-05-04] MEDS: ISOSORBIDE MONO EXTENDED REL 30 MG TABCR PO SCH (08:13)
[2019-05-04] MEDS: FERROUS SULFATE 325 MG TAB PO SCH (08:13)
[2019-05-04] MEDS: FLUTICASONE PROPIONATE NA SPR 16 GM BTL SCH (08:14)
[2019-05-04] MEDS: CETIRIZINE HCL 10 MG TABLET PO SCH (08:15)
[2019-05-04] MEDS: DOCUSATE SODIUM 100 MG CAP PO SCH ×2 (08:19→19:46)
[2019-05-04] MEDS: cefTRIAXone SODIUM 2,000 MG in DEXTROSE 5% 50 ML IV SCH (08:20)
[2019-05-04] MEDS ORDERED: FUROSEMIDE 40 MG TAB PO ONE (10:25)
[2019-05-04] MEDS: WARFARIN SOD 5 MG TAB PO SCH (15:29)
--- NOTE | 2019-05-04 17:15 | Hospitalist Progress Note ---
Date of Service May 04, 2019 Assessment & Plan (1) Acute exacerbation of chronic obstructive pulmonary disease: Possible related to bronchitis Admitted with the evaluation of COPD with respiratory failure CXR showed no evidence of parenchymal consolidation Was starting on BiPAP following admission Continue IV Rocephin and doxycycline IV solumedrol changed to prednisone Prednisone taper to 20mg Continue neb and oxygen supplement Clinically improved (2) Atrial fibrillation with rapid ventricular response: Present on admission with Afib with RVR and required intravenous Cardizem drip Cardizem was discontinued Metoprolol increased to 50 mg BID Rate controlled INR 1.3 today Continue coumadin 5mg today Continue monitor (3) CHF (congestive heart failure): Clinically has mild congestion Lasix was on hold due to elevate creatinine to 1.5 Lasix resumed today Clinically improved stable (4) Acute renal failure superimposed on stage 3 chronic kidney disease: Creatinine increased to 1.5 Creatinine back to 1.1 Will monitor BMP while on lasix Monitor BMP (5) S/P aortic valve replacement with bioprosthetic valve: No acute issue DVT px on coumadin INR 1.3 Will add on heparin sub for now until coumadin therapeutic CODE STATUS DNI/DNR Disposition waiting for placement to rehab Subjective Pt was seen and examined Sitting in chair with no distress Pt has been walking in the hallway with grand daughter Update provided to the granddaughter Pt said that his breathing feels much better He said that his strength is getting better Last night he has a brief second pause Denies any chest pain, palpitation and SOB Physical Exam Physical Exam: General- No acute distress Head- atraumatic Eyes- PERRL, EOMI, ENT- oropharynx clear Neck- supple, no JVD Lungs- diminished BS Heart- no murmur Abdomen- normal bowel sounds, soft, nontender Extremities- no calf tenderness Neuro- alert, oriented x 3; PERRL, EOMI; no facial palsy; no dysarthria Skin- warm & dry Results & Data Vital Signs (Past 12 Hours) Vital Signs Temp Pulse Pulse Pulse Resp BP BP 05/04/19 15:01 36.6 C 75 16 132/82 05/04/19 14:20 77 05/04/19 13:20 79 18 05/04/19 12:00 36.7 C 71 22 139/69 05/04/19 08:06 147/63 H 05/04/19 07:37 77 05/04/19 07:20 36.7 C 80 18 186/107 H 201/83 H 05/04/19 07:05 65 18 Pulse Ox 05/04/19 15:01 94 05/04/19 14:20 05/04/19 13:20 96 05/04/19 12:00 98 05/04/19 08:06 05/04/19 07:37 05/04/19 07:20 99 05/04/19 07:05 96 (1) CHF (congestive heart failure) Heart failure chronicity: unspecified Heart failure type: unspecified Qualified Code(s): I50.9 - Heart failure, unspecified (2) Acute renal failure superimposed on stage 3 chronic kidney disease Acute renal failure type: with acute tubular necrosis Qualified Code(s): N17.0 - Acute kidney failure with tubular necrosis; N18.3 - Chronic kidney disease, stage 3 (moderate)
[2019-05-04] MEDS: LATANOPROST 0.005% OP SOLN 2.5 ML BTL OPB SCH (19:47)
[2019-05-04] MEDS: HEPARIN SOD 5,000 UNIT/0.5 ML VIAL SQ SCH (19:48)
[2019-05-05] MEDS: IPRATROPIUM BROMIDE NEB SOLN 0.02% 2.5 ML VIAL INH SCH ×3 (00:40→14:49)
[2019-05-05] MEDS: LEVALBUTEROL 1.25MG/0.5ML NEB INH SCH ×3 (00:40→14:49)
[2019-05-05] MEDS: LEVOTHYROXINE SODIUM 112 MCG TABLET PO SCH (05:02)
[2019-05-05] MEDS: HEPARIN SOD 5,000 UNIT/0.5 ML VIAL SQ SCH ×2 (05:02→15:29)
[2019-05-05] MEDS: guaiFENesin 200 MG TAB PO SCH ×2 (05:02→15:28)
[2019-05-05 08:10] LABS: INR 1.5 (0.9-1.1); Prothrombin Time 14.6 Seconds (9.0-12.0)
[2019-05-05] MEDS: FUROSEMIDE 40 MG TAB PO SCH (08:22)
[2019-05-05] MEDS: ESCITALOPRAM OXALATE 10 MG TAB PO SCH (08:22)
[2019-05-05] MEDS: ATORVASTATIN 20 MG TAB PO SCH (08:22)
[2019-05-05] MEDS: ISOSORBIDE MONO EXTENDED REL 30 MG TABCR PO SCH (08:22)
[2019-05-05] MEDS: DOCUSATE SODIUM 100 MG CAP PO SCH (08:22)
[2019-05-05] MEDS: PANTOprazole 40 MG TAB PO SCH (08:23)
[2019-05-05] MEDS: CETIRIZINE HCL 10 MG TABLET PO SCH (08:23)
[2019-05-05] MEDS: TAMSULOSIN HCL 0.4 MG CAP PO SCH (08:23)
[2019-05-05] MEDS: FERROUS SULFATE 325 MG TAB PO SCH (08:23)
[2019-05-05] MEDS: FAMOTIDINE 10 MG TABLET PO SCH (08:23)
[2019-05-05] MEDS: ASPIRIN 81 MG ECTAB PO SCH (08:23)
[2019-05-05] MEDS: OMEGA-3 (PURIFIED FISH OIL) 1 GM CAP PO SCH (08:23)
[2019-05-05] MEDS: METOPROLOL TARTRATE 50 MG TAB PO SCH (08:24)
[2019-05-05] MEDS: FLUTICASONE PROPIONATE NA SPR 16 GM BTL SCH (08:24)
[2019-05-05 08:34] LABS: BUN Creatinine Ratio 27.4 (10-20); Calcium 9.2 mg/dl (8.5-10.1); Est GFR (African American) 64.6; Est GFR (Non-African American) 55.7; Potassium 4.3 mmol/L (3.5-5.1)
[2019-05-05] MEDS: cefTRIAXone SODIUM 2,000 MG in DEXTROSE 5% 50 ML IV SCH (08:35)
[2019-05-05] MEDS: POLYETHYLENE (MIRALAX) 17 GM PACK PO SCH (08:35)
[2019-05-05] MEDS: DOXYCYCLINE HYCLATE 100 MG CAP PO SCH (08:41)
[2019-05-05] MEDS ORDERED: predniSONE 20 MG TAB PO SCH (09:00)
--- NOTE | 2019-05-05 13:36 | Hospitalist Progress Note ---
Date of Service May 05, 2019 Assessment & Plan (1) Acute exacerbation of chronic obstructive pulmonary disease: Possible related to bronchitis Admitted with the evaluation of COPD with respiratory failure CXR showed no evidence of parenchymal consolidation Was starting on BiPAP following admission Continue IV Rocephin and doxycycline IV solumedrol changed to prednisone Prednisone taper to 20mg Continue neb and oxygen supplement Clinically improved (2) Atrial fibrillation with rapid ventricular response: Present on admission with Afib with RVR and required intravenous Cardizem drip Cardizem was discontinued Metoprolol increased to 50 mg BID Rate controlled INR 1.5 today Continue coumadin 5mg today Continue monitor (3) CHF (congestive heart failure): Clinically has mild congestion Lasix was on hold due to elevate creatinine to 1.5 Lasix resumed today Clinically improved stable (4) Acute renal failure superimposed on stage 3 chronic kidney disease: Creatinine increased to 1.5 Creatinine stable at 1.1 Will monitor BMP while on lasix Stable (5) S/P aortic valve replacement with bioprosthetic valve: No acute issue DVT px on coumadin INR 1.5 On heparin sub for now until INR therapeutic CODE STATUS DNI/DNR Disposition waiting for placement to rehab Subjective Pt was seen and examined Sitting in chair with no distress Pt said that his breathing felt better yesterday Denies any chest pain, palpitation and fever Physical Exam Physical Exam: General- No acute distress Head- atraumatic Eyes- PERRL, EOMI, ENT- oropharynx clear Neck- supple, no JVD Lungs- faint wheezing Heart- no murmur Abdomen- normal bowel sounds, soft, nontender Extremities- no calf tenderness Neuro- alert, oriented x 3; PERRL, EOMI; no facial palsy; no dysarthria Skin- warm & dry Results & Data Vital Signs (Past 12 Hours) Vital Signs Temp Pulse Resp BP BP Pulse Ox 05/05/19 11:43 36.3 C L 76 18 110/69 98 05/05/19 08:20 37.1 C 71 22 168/81 H 99 05/05/19 06:54 79 18 98 05/05/19 05:00 36.5 C 65 20 163/75 H 92 (1) CHF (congestive heart failure) Heart failure chronicity: unspecified Heart failure type: unspecified Qualified Code(s): I50.9 - Heart failure, unspecified (2) Acute renal failure superimposed on stage 3 chronic kidney disease Acute renal failure type: with acute tubular necrosis Qualified Code(s): N17.0 - Acute kidney failure with tubular necrosis; N18.3 - Chronic kidney disease, stage 3 (moderate)
[2019-05-05] MEDS: WARFARIN SOD 5 MG TAB PO SCH (15:29)
--- NOTE | 2019-05-05 16:28 | Communication Note ---
Date of Service: May 05, 2019 Paged from Nurse that pt granddaughter would like to speak to me. Daughter said that since pt is doing much better, so family decides to take him home with home health services. Pt walked in the hallway with no discomfort. He said that his breathing his stable after the walk. Daughter confirmed with her dad ( patient son) and OK to take him home today. Case management was notified. Discharge home with home services and continue PT/OT at home. Script given for hospital bed. MD Lea
--- NOTE | 2019-05-05 16:32 | Discharge Summary ---
Date of Service May 05, 2019 Admission HPI Per Admitting Provider CHIEF COMPLAINT: Shortness of breath. HISTORY OF PRESENT ILLNESS: This is an 89-year-old male with past medical history significant for COPD, chronic respiratory failure on 2 liters home oxygen; history of atrial fibrillation, pulmonary hypertension, chronic right-sided heart failure, peripheral vascular disease, hypertension, chronic kidney disease stage III, carotid artery stenosis, hypothyroidism, hyperlipidemia, allergic rhinitis, GERD, sensorineural hearing loss, iron deficiency anemia, status post bioprosthetic aortic valve replacement, depression, hernia of the anterior abdominal wall. In January, he also had non-ST elevated myocardial infarction, status post stress test as outpatient which was unremarkable. He refused cardiac cath in the hospital at that time. The patient currently lives at home with his son, walks without any support. Otherwise, alert and awake, oriented. He is on a regular diet. From the last few days he is having shortness of breath and cough bringing up brownish sputum. This could be also a zuleika sputum. He was prescribed Z-Bhavik and prednisone as outpatient and he took 3 doses of Z-BHAVIK, but is getting more and more short of breath at home and coughing, and because of worsening symptoms patient was brought in and when he came he was in rapid AFib and tachypneic. Mild temperature spike and venous blood gas pH was 7.25 and pCO2 was 74. He was started on BiPAP, but the patient was somewhat agitated. He was given a dose of Ativan. Currently, seems to be somewhat confused, can tell his name, also he is on BiPAP mask, so could not get much history from the patient, but the son and [id number] is in the room. Most of the history got from them. There were no complaints of any headache or chest pain or belly pain, no nausea, no vomiting. Otherwise, appetite is okay. No diarrhea or constipation, uses stool softeners. He is micturating fine. No swelling in the legs currently, otherwise ambulates okay. Admission Exam Per Admitting Provider GENERAL: The patient is of moderate build, not in acute distress. VITAL SIGNS: Temperature 37.9, pulse 120, respiratory rate 28, blood pressure 151/87, oxygen 99% on BiPAP. HEENT: No pallor, no icterus. Pupils equal, round, and reactive to light. NECK: No JVD, no neck masses, no carotid bruits. CARDIOVASCULAR: S1, S2 heard. Tachycardia, irregular rhythm. No murmurs. RESPIRATORY SYSTEM: Normal AP diameter, tachypnea present. Bilateral mild rhonchi. No wheezing. ABDOMEN: Soft, bowel sounds present. Nontender. Ventral hernia seen. No distention. CENTRAL NERVOUS SYSTEM: Alert and awake, oriented to name only somewhat drowsy. EXTREMITIES: No edema, no erythema seen. Principal Diagnosis Acute exacerbation of chronic obstructive pulmonary disease Atrial fibrillation with rapid ventricular response CHF (congestive heart failure) Acute renal failure superimposed on stage 3 chronic kidney disease S/P aortic valve replacement with bioprosthetic valve: Discharge Exam General- No acute distress Head- atraumatic Eyes- PERRL, EOMI, ENT- oropharynx clear Neck- supple, no JVD Lungs- faint wheezing Heart- no murmur Abdomen- normal bowel sounds, soft, nontender Extremities- no calf tenderness Neuro- alert, oriented x 3; PERRL, EOMI; no facial palsy; no dysarthria Skin- warm & dry Discharge Data Allergies Allergy/AdvReac Type Severity Reaction Status Date / Time shellfish derived Allergy Severe ANAPHYLAXIS Verified 04/29/19 06:21 shrimp Allergy Severe ANAPHYLAXIS Verified 04/29/19 06:21 lisinopril Allergy Intermediate DROPS Verified 04/29/19 06:21 BLOOD PRESSURE TO LOW, Consultations 04/29/19 05:56 ED Decision to Admit Stat 04/29/19 08:14 Consult Case Management - Discharge Planning Routine Ordered Studies 05/01/19 20:15 CT head/brain wo con Urgent XR chest 1V portable HISTORY: 89 years-old Male SHOB acute shortness of breath COMPARISON: Chest radiograph 01/19/2019, CT abdomen and pelvis 05/17/2018, CTA chest 02/04/2016 TECHNIQUE: Portable AP view of the chest FINDINGS: Cardiac silhouette is mildly enlarged, unchanged. Prior median sternotomy. Calcified plaque of the thoracic aortic arch. Emphysema with chronic interstitial coarsening. No lobar airspace consolidation typical for pneumonia. No overt pulmonary edema. Ill-defined 1.5 cm nodular opacity overlying lateral left lung base suggest probable summation density. Degenerative changes of the shoulders and spine. IMPRESSION: 1. Emphysema and chronic fibrotic change redemonstrated. No definite acute process identified. ACT 112: Negative or not required by law. The above report was generated using voice recognition software. It may contain grammatical, syntax or spelling errors. Electronically signed by: Carl Gonzalez M.D. 04/29/2019 6:32 AM Dictated: 04/29/19628 Transcribed: 04/29/19628 CT head/brain wo con CLINICAL HISTORY: Acute change in mental status COMPARISON STUDY: June 09, 2017 TECHNIQUE: Axial CT of the brain is performed from the vertex to the skull ba se. IV contrast was not administered for this examination. A dose lowering technique was utilized adhering to the principles of ALARA. CT DOSE: 537.48 mGy.cm FINDINGS: No intra or extra-axial mass lesions are visualized. There is no CT evidence of acute cortical infarction. There is no evidence of midline shift. There is no acute hemorrhage. No calvarial fractures are visualized. There are moderate white matter hypodensities likely on a small vessel basis. There is no evidence of pathologic ventricular dilatation. There is a left inferior mastoid effusion. There is a right frontal scalp nodule, likely representing a sebaceous cyst. IMPRESSION: 1. No acute intracranial findings 2. Small left mastoid effusion 3. Right frontal scalp nodule likely representing a sebaceous cyst ACT 112: Negative or not required by law. Electronically signed by: Catarino Garcia M.D. 05/01/2019 9:22 PM Dictated: 05/01/192119 Transcribed: 05/01/192119 XR chest 1V portable CLINICAL HISTORY: Respiratory distress COMPARISON STUDY: 04/29/2019 FINDINGS: There are postsurgical changes of a midline sternotomy. The heart is mildly enlarged. There is chronic interstitial thickening similar to the preceding study. There is no lobar consolidation.[There are no pleural effusions. IMPRESSION: 1. Emphysema and chronic interstitial thickening similar to the preceding study. 2. No evidence of parenchymal consolidation ACT 112: Negative or not required by law. Electronically signed by: Catarino Garcia M.D. 05/01/2019 8:48 PM Dictated: 05/01/192044 Transcribed: 05/01/192044 XR chest 1V portable HISTORY: 89 years-old Male sob acute shortness of breath COMPARISON: Chest radiograph 05/01/2019 TECHNIQUE: Portable AP view of the chest FINDINGS: Cardiac silhouette is enlarged. Prior median sternotomy. Emphysema with chronic interstitial scarring. No pneumothorax, pleural effusion or overt pulmonary edema. Degenerative changes of the shoulders and spine. Calcified plaque of the thoracic aortic arch. IMPRESSION: 1. Emphysema and chronic fibrotic changes without acute process. 2. Cardiomegaly. ACT 112: Negative or not required by law. The above report was generated using voice recognition software. It may contain grammatical, syntax or spelling errors. Electronically signed by: Carl Gonzalez M.D. 05/02/2019 8:11 PM Dictated: 05/02/192009 Transcribed: 05/02/192009 Hospital Course (1) Acute exacerbation of chronic obstructive pulmonary disease: Admitted with the evaluation of COPD with respiratory failure CXR showed no evidence of parenchymal consolidation Was starting on BiPAP following admission Continue IV Rocephin and doxycycline IV solumedrol changed to prednisone Prednisone taper to 20mg Continue neb and oxygen supplement Completed course of abx with doxycycline and IV Zosyn Clinically improved (2) Atrial fibrillation with rapid ventricular response: Present on admission with Afib with RVR and required intravenous Cardizem drip Cardizem was discontinued Metoprolol increased to 50 mg BID Rate controlled INR 1.5 today Continue coumadin 5mg today Continue monitor (3) CHF (congestive heart failure): Clinically has mild congestion Lasix was on hold due to elevate creatinine to 1.5 Lasix resumed today Clinically improved stable (4) Acute renal failure superimposed on stage 3 chronic kidney disease: Creatinine increased to 1.5 Creatinine stable at 1.1 Will monitor BMP while on lasix Stable (5) S/P aortic valve replacement with bioprosthetic valve: No acute issue DVT px on coumadin INR 1.5 On heparin sub for now until INR therapeutic CODE STATUS DNI/DNR Disposition Family decided to take him home with Total Time Total Time Spent Total Time Spent (In Minutes): 35 minutes Total Time Includes: Examination of the Patient, Discharge Planning, Medication Reconciliation, Communication With Other Providers and Other Discharge Plan Discharge Items Patient Disposition: Home - Home Health Services Reason For Visit: SOB Discharge Diagnosis: Acute exacerbation of chronic obstructive pulmonary disease Atrial fibrillation with rapid ventricular response CHF (congestive heart failure) Acute renal failure superimposed on stage 3 chronic kidney disease S/P aortic valve replacement with bioprosthetic valve: Activity: Resume your previous activity Non-emergency contact: Primary Care Provider Call non-emergency contact if: you have any medication questions and your temperature is above 101 Follow-up/Referrals: Taj Rios MD [Primary Care Provider] - Diet: Heart Healthy Addtl Attending Provider Instructions: Follow up with your primary care provider within 1 week (Please call to schedule for the follow up appointment) Follow up with the coumadin clinic to monitor PT/INR (INR 1.5 today) Continue physical and occupational therapy Fall precaution Continue oxygen supplement Pending Studies at Discharge: No Stand-Alone Forms: [facility] [place], Smoking Cessation Medications and DC Order Prescriptions: New guaifenesin 200 mg Tablet 200 mg PO Q8H PRN (Reason: cough) Qty: 20 RF: 0 metoprolol tartrate 50 mg Tablet 50 mg PO BID 30 Days Qty: 60 RF: 0 escitalopram oxalate 10 mg Tablet 10 mg PO DAILY 30 Days Qty: 30 RF: 0 Continued furosemide [Lasix] 40 mg tablet 40 mg PO DAILY PRN (Reason: WEIGHT GAIN) RF: 0 furosemide [Lasix] 40 mg tablet 40 mg PO QAM RF: 0 latanoprost [Xalatan] 0.005 % drops 1 drp OPB HS RF: 0 atorvastatin [Lipitor] 20 mg tablet 20 mg PO QAM RF: 0 aspirin [Aspir-Low] 81 mg Tablet,Delayed Release (Dr/Ec) 81 mg PO QAM RF: 0 tamsulosin 0.4 mg capsule 0.4 mg PO DAILY RF: 0 ferrous sulfate 325 mg (65 mg iron) Tablet 325 mg PO QAM RF: 0 omeprazole 20 mg capsule,delayed release(DR/EC) 20 mg PO QAM RF: 0 levalbuterol HCl [Xopenex] 1.25 mg/3 mL solution for nebulization 1 dose Inhalation UD PRN (Reason: Shortness Of Breath) RF: 0 albuterol sulfate [Ventolin HFA] 90 mcg/actuation Hfa Aerosol Inhaler 2 puff INHALATION Q4 PRN (Reason: Wheezing) RF: 0 levothyroxine [Synthroid] 112 mcg tablet 112 mcg PO QAM RF: 0 warfarin [Coumadin] 5 mg tablet 5 mg PO 4XWK RF: 0 polyethylene glycol 3350 [Miralax] 17 gram Powder In Packet 17 g PO QAM PRN (Reason: Constipation) RF: 0 docusate sodium [Colace] 100 mg Capsule 100 mg PO BID RF: 0 Trelegy Ellipta 100-62.5-25 mcg blister with device 1 puff inhalation QAM RF: 0 warfarin 2.5 mg Tablet 2.5 mg PO 3XWK RF: 0 cetirizine 10 mg Tablet 5 mg PO DAILY RF: 0 fluticasone propionate [Flonase Allergy Relief] 50 mcg/actuation Malone,Suspension 2 spray INTRANASAL DAILY RF: 0 melatonin 1 mg Tablet 5 mg PO HS RF: 0 isosorbide mononitrate 30 mg tablet extended release 24 hr 30 mg PO QAM RF: 0 omega-3 fatty acids 1,000 mg Capsule 2,000 mg PO DAILY RF: 0 famotidine 20 mg Tablet 10 mg PO BID RF: 0 azithromycin 250 mg tablet 250 - 500 mg PO UD RF: 0 Changed prednisone 5 mg tablet 5 mg PO UD Qty: 10 RF: 0 Discontinued metoprolol tartrate 25 mg Tablet 25 mg PO BID RF: 0 escitalopram oxalate [Lexapro] 5 mg Tablet 5 mg PO DAILY RF: 0 prednisone 20 mg tablet 0 mg PO UD RF: 0 Discharge Orders: Discharge Order (Routine); Ordered 05/05/19 Ordered By: Beatrice Tate Admission Data Admit Date/Time: 04/29/19 06:35 Attending Provider: Beatrice Tate Admit Provider: Marcelo Mattson Primary Care Provider: Taj Rios Other Providers: Marcelo Mattson ; Radha Linder ; [facility] Other [place] Date/Time DO NOT enter until pt leaves facility: 05/05/19 16:35
== END 2019-05-05 16:35 | disposition home health service (06) | DRG 190 ==
LOC: ED 05:04 → SUATTDRO 06:35 → 2S 06:35